=== PATIENT | female | born 1985 | race Caucasian/White ===

== ENCOUNTER → 2022-08-14 | Outpatient (CLI) | payer OTHER, SELFPAY ==
--- NOTE | 2022-08-14 08:25 | BI_ITS ---
MAMMOGRAPHY - BILATERAL SCREENING REASON FOR EXAM: Female, 36 years old. Routine annual screening examination. PERTINENT HISTORY: Mother with breast cancer. TECHNIQUE: Digital bilateral breast cristina (3D mammographic acquisition) in the CC and MLO projections. 2-D mediolateral oblique (MLO) and craniocaudad (CC) views of both breasts were obtained. CAD: Full Field Digital Mammography with Computer Added Detection was performed. COMPARISON: Comparison is made with prior examination January 07, 2017. FINDINGS: Breast Composition: The breasts are extremely dense, which lowers the sensitivity of mammography. There are no dominant masses or suspicious calcifications. No other significant abnormalities are identified. There has been no significant change since the prior study. BI/SCRN MAMM (CAD)W/CRISTINA BILAT IMPRESSION: Stable bilateral screening mammogram. Yearly follow-up mammogram recommended. (A) ASSESSMENT CATEGORY: BIRADS Category 1: Negative. A letter regarding these results will be sent to the patient by the facility within 30 days. Approximately 10% of breast cancers are not detected by mammography. A normal mammogram should not delay biopsy of a clinically suspicious abnormality. [id number] Electronically Signed: Guy Ruiz MD at 9:44 EDT ,
== END | disposition home or self-care (01) ==
LOC: OPBI 08:23
PROVIDERS: PCP Family Medicine; Referring Provider Family Medicine; Visit Provider Family Medicine
DX: Z12.31 Encounter for screening mammogram for malignant neoplasm of breast (principal); Z80.3 Family history of malignant neoplasm of breast
CPT/HCPCS: 77063; 77067

== ENCOUNTER → 2023-02-06 | Outpatient (CLI) | payer OTHER, SELFPAY ==
[2023-02-06 09:51] LABS: Absolute Lymphocyte Count 2.43 X10^3/uL (0.83-4.51); Absolute Neutrophil Count 3.6 X10^3/uL (2.0-7.7); Basophil# 0.04 X10^3/uL; Basophil% 0.6 % (0-1); Eosinophil# 0.07 X10^3/uL; Hematocrit 45.5 % (37-47); Hemoglobin 15.2 g/dL (12.0-15.0); Lymphocyte # 2.43 X10^3/ul (0.83-4.51); Lymphocyte % 36.4 % (19-41); Mean Corp Hgb Conc 33.4 g/dL (32-36); Mean Corpuscular Volume 92.9 fL (81-99); Mean Platelet Vol. 11.3 fl (6.2-12.0); Monocyte# 0.56 X10^3/uL; Monocyte% 8.4 % (0-10); NRBC Flagged by Analyzer 0 % (0-5); Neutrophil # 3.56 X10^3/uL (2.7-7.7); Neutrophil % 53.5 % (47-70); Platelet Count 244 K/mm3 (150-450); RBC Distribution Width CV 12.6 % (11.6-14.6); RBC Distribution Width SD 43.3 fl (35.1-43.9); White Blood Count 6.7 K/mm3 (4.4-11.0)
[2023-02-06 10:13] LABS: Hemoglobin A1c 5.1 % (3.8-5.6)
[2023-02-06 10:22] LABS: AST(SGOT) 18 U/L (15-37); Alanine Aminotransfer ALT/SGPT 23 U/L (13-56); Albumin, Serum 3.8 g/dL (3.2-5.0); Alkaline Phosphatase 66 U/L (45-117); Anion Gap 4 (5-15); BUN 11 mg/dL (7-18); Calcium,Total 8.8 mg/dL (8.5-10.1); Chloride 107 mmol/L (98-107); Cholesterol 202 mg/dL (200); Creatinine, Serum 0.92 mg/dL (0.55-1.02); EST Glomerular Filtration Rate 72 mL/min (>60); Est Glom Filt Rate - Afr Amer 88 mL/min (>60); Globulin 3.9 g/dL (2.2-4.2); Glucose 91 mg/dL (74-106); High Density Lipoprotein 71 mg/dL; Potassium 4.3 mmol/L (3.5-5.1); Protein, Total 7.7 g/dL (6.4-8.2); Sodium Level 138 mmol/L (136-145); Thyroid Stim Hormone (TSH) 1.45 uIU/mL (0.358-3.74); Triglycerides 85 mg/dL; Very Low Density Lipoprotein 17 mg/dL (5-40)
== END | disposition home or self-care (01) ==
LOC: LAB 09:25
PROVIDERS: PCP Family Medicine; Referring Provider Family Medicine; Visit Provider Family Medicine
DX: Z13.228 Encounter for screening for other metabolic disorders (principal); Z13.220 Encounter for screening for lipoid disorders; Z13.1 Encounter for screening for diabetes mellitus
CPT/HCPCS: 36415; 80053; 80061; 83036; 84443; 85025

== ENCOUNTER → 2023-08-19 | Outpatient (CLI) | payer BC, SELFPAY ==
--- NOTE | 2023-08-19 16:21 | BI_ITS ---
MAMMOGRAPHY - BILATERAL SCREENING REASON FOR EXAM: Female, 37 years old. Routine annual screening examination. PERTINENT HISTORY: Mother with breast cancer. TECHNIQUE: Digital bilateral breast cristina (3D mammographic acquisition) in the CC and MLO projections. 2-D mediolateral oblique (MLO) and craniocaudad (CC) views of both breasts were obtained. CAD: Full Field Digital Mammography with Computer Added Detection was performed. COMPARISON: Comparison is made with prior study August 14, 2022. FINDINGS: Breast Composition: The breasts are extremely dense, which lowers the sensitivity of mammography. There are no dominant masses or suspicious calcifications. No other significant abnormalities are identified. There has been no significant change since the prior study. BI/SCRN MAMM (CAD)W/CRISTINA BILAT IMPRESSION: Stable bilateral screening mammogram. Yearly follow-up mammogram recommended. (A) ASSESSMENT CATEGORY: BIRADS Category 1: Negative. A letter regarding these results will be sent to the patient by the facility within 30 days. Approximately 10% of breast cancers are not detected by mammography. A normal mammogram should not delay biopsy of a clinically suspicious abnormality. [id number] Electronically Signed: Guy Ruiz MD at 9:27 EDT ,
== END | disposition home or self-care (01) ==
LOC: OPBI 16:21
PROVIDERS: PCP Family Medicine; Referring Provider Advanced Practice Midwife; Visit Provider Advanced Practice Midwife
DX: Z12.31 Encounter for screening mammogram for malignant neoplasm of breast (principal); Z80.3 Family history of malignant neoplasm of breast
CPT/HCPCS: 77063; 77067

== ENCOUNTER → 2023-11-16 | Outpatient (CLI) | payer BC, SELFPAY ==
[2023-11-21 13:06] LABS: Banana <0.10 kU/L (Class 0); Clam <0.10 kU/L (Class 0); Codfish <0.10 kU/L (Class 0); Corn <0.10 kU/L (Class 0); Crab <0.10 kU/L (Class 0); Egg, White <0.10 kU/L (Class 0); Egg, Whole <0.10 kU/L (Class 0); Gluten <0.10 kU/L (Class 0); Milk (Cow) <0.10 kU/L (Class 0); Peanut <0.10 kU/L (Class 0); SCALLOP <0.10 kU/L (Class 0); SESAME SEED <0.10 kU/L (Class 0); Shrimp <0.10 kU/L (Class 0); Soybean <0.10 kU/L (Class 0); Walnut, (Food) <0.10 kU/L (Class 0); Wheat <0.10 kU/L (Class 0)
== END | disposition home or self-care (01) ==
PROVIDERS: PCP Family Medicine; Referring Provider Otolaryngology; Visit Provider Otolaryngology
DX: T78.40XA Allergy, unspecified, initial encounter (principal)
CPT/HCPCS: 36415; 86003

== ENCOUNTER → 2024-05-29 | Outpatient (CLI) | payer BC, SELFPAY ==
--- NOTE | 2024-05-29 11:45 | RAD_ITS ---
EXAM: XR Chest, 2 Views CLINICAL INDICATION: TECHNIQUE: Frontal and lateral views of the chest. COMPARISON: No relevant prior studies available. FINDINGS: LUNGS AND PLEURAL SPACES: Unremarkable. No consolidation. No pneumothorax. HEART: Unremarkable. No cardiomegaly. MEDIASTINUM: Unremarkable. Normal mediastinal contour. BONES/JOINTS: Unremarkable. No acute fracture. RAD/Chest PA and Lateral IMPRESSION: No acute cardiopulmonary process. Reading [facility]
== END | disposition home or self-care (01) ==
LOC: RAD 11:42
PROVIDERS: PCP Family Medicine; Referring Provider Internal Medicine Pulmonary Disease; Visit Provider Internal Medicine Pulmonary Disease
DX: R06.00 Dyspnea, unspecified (principal); R05.9 Cough, unspecified
CPT/HCPCS: 71046

== ENCOUNTER → 2024-06-08 | Outpatient (CLI) | payer BC, SELFPAY ==
[2024-06-15 12:08] LABS: HPV APTIMA, High Risk Negative (Negative)
== END | disposition home or self-care (01) ==
PROVIDERS: PCP Family Medicine; Referring Provider Advanced Practice Midwife; Visit Provider Advanced Practice Midwife
DX: Z12.4 Encounter for screening for malignant neoplasm of cervix (principal)
CPT/HCPCS: 87624; 88175; G0145

== ENCOUNTER → 2024-06-20 | Outpatient (CLI) | payer BC, SELFPAY ==
[2024-06-20 17:06] LABS: D-Dimer Quantitative (DVT/PE) < 0.27 FEU/ug/m (0.27-0.49)
== END | disposition home or self-care (01) ==
PROVIDERS: PCP Family Medicine; Referring Provider Internal Medicine Pulmonary Disease; Visit Provider Internal Medicine Pulmonary Disease
DX: R06.02 Shortness of breath (principal)
CPT/HCPCS: 36415; 85379

== ENCOUNTER → 2024-06-21 | Outpatient (CLI) | payer BC, SELFPAY ==
[2024-06-21 17:52] LABS: CRP 4.48 mg/L (0.0-3.0)
[2024-06-23 10:08] LABS: Anti-Scleroderma-70 AB <0.2 AI (0.0-0.9); Anti-dsDNA Ab 2 IU/mL (0-9); SJOGREN'S Anti-SS-A test < 0.2 AI (0.0-0.9); SJOGREN'S Anti-SS-B test < 0.2 AI (0.0-0.9)
[2024-06-23 17:08] LABS: Angiotensin Convert Enzyme 42 U/L (14-82); Anti-Smooth Muscle ABS 17 Units (0-19); CCP IgG Antibodies 8 units (0-19); Cytoplasmic Ab (C-ANCA) <1:20 titer (Neg:<1:20); Perinuclear Ab (P-ANCA) <1:20 titer (Neg:<1:20)
== END | disposition home or self-care (01) ==
LOC: LAB 16:26
PROVIDERS: PCP Family Medicine; Referring Provider Internal Medicine Pulmonary Disease; Visit Provider Internal Medicine Pulmonary Disease
DX: R06.02 Shortness of breath (principal)
CPT/HCPCS: 82164; 83516; 86037; 86140; 86200; 86225; 86235

== ENCOUNTER → 2024-09-04 | Outpatient (CLI) | payer BC, SELFPAY ==
--- NOTE | 2024-09-04 12:30 | BI_ITS ---
EXAM: SCRN MAMM (CAD)W/CRISTINA BILAT DATE: 09/04/2024 CLINICAL HISTORY: F, Age 38 y/o , BREAST CANCER SCREENING BREAST CANCER RISK ASSESSMENT: Th has not been calculated TECHNIQUE: Bilateral screening digital breast tomosynthesis with 2D and 3D images. Computer aided detection. COMPARISON: Prior exam(s) dated 08/20/2023 and 08/14/2022. FINDINGS: TISSUE DENSITY: The breast tissue is extremely dense which lowers the sensitivity of mammography. Bilateral Breast Mammographic Findings: There are no suspicious masses, suspicious cluster of microcalcifications, architectural distortion or secondary signs of malignancy identified in either breast. BI/SCRN MAMM (CAD)W/CRISTINA BILAT IMPRESSION: OVERALL FINAL ASSESSMENT: BIRADS 1 NEGATIVE RECOMMENDATION: Routine annual follow-up in 1 Year A letter with findings and recommendations will be mailed to the patient. Reading Location: [id number]
== END | disposition home or self-care (01) ==
LOC: OPBI 12:24
PROVIDERS: PCP Family Medicine; Referring Provider Advanced Practice Midwife; Visit Provider Advanced Practice Midwife
DX: Z12.31 Encounter for screening mammogram for malignant neoplasm of breast (principal); Z80.3 Family history of malignant neoplasm of breast
CPT/HCPCS: 77063; 77067

== ENCOUNTER → 2024-11-25 | Outpatient (CLI) | payer BC, SELFPAY ==
--- OUTSIDE RECORDS SUMMARY | 2024-11-25 10:17 | XMS RPT_ITS | CCD ---
Author Organization [facility] Care Team Providers Care Industrial Cafeteria Manager Name Role Phone MECASIMIROE, LUIS Unavailable Unavailable MEHLE, LUIS Unavailable Unavailable ALOK, KARIN Unavailable Unavailable MEHLE, LUIS Unavailable Unavailable ALOK, KARIN Unavailable Unavailable MEHLE, LUIS Unavailable Unavailable ALOK, KARIN Unavailable Unavailable Alok, Karin Unavailable Unavailable Alok, Karin Unavailable Unavailable Alok, Karin Unavailable Unavailable Alok, Karin Unavailable Unavailable Unavailable Nuria Dickinson Primary Care Provider AlokNuria Primary Care Provider Tino Hood DO Primary Care Provider Tino Hood DO Primary Care Provider Tino Hood DO Primary Care Provider Tino Hood DO Primary Care Provider [phone] Maritza Hood DO Primary Care Provider Dr. Dg Nguyen MD, V Attending Provider Dr. Dg Nguyen MD, V Referring Provider Maritza Hood DO Referring Provider Isabelle Frias CNM Attending Provider Isabelle Frias CNM Referring Provider Maritza Hood DO Primary Care Provider Dr. Dg Nguyen MD, V Attending Provider Dr. Dg Nguyen MD, V Referring Provider Sana DO, Maritza Referring Provider Isabelle Frias CNM Attending Provider Isabelle Frias CNM Referring Provider Isabelle Frias Attending Unavailable Isabelle Frias Referring Unavailable Sana [facility], Maritza Primary Care Unavailable Sana [facility]SC, Maritza Primary Care Unavailable Sibilia, Dg V Attending Unavailable Sibilia, Dg V Referring Unavailable Sana VSC, Maritza Primary Care Unavailable Sibilia, Dg V Attending Unavailable Sibilia, Dg V Referring Unavailable Isabelle Frias Attending Unavailable Isabelle Frias Referring Unavailable Sana VS, Maritza Primary Care Unavailable Isabelle Frias Attending Unavailable Sana VS, Maritza Primary Care Unavailable Sana VS, Maritza Referring Unavailable Sana VS, Maritza Primary Care Unavailable Sibilia, Dg V Attending Unavailable Sibilia, Dg V Referring Unavailable Can Enrique Referring Unavailable Sana [facility], Maritza Primary Care Unavailable Can Enrique [facility]ending [facility] Primary Care Provider ANNIE PERAZA Attending Unavailable TINO HOOD SALLY Primary Care Unavailabl e Allergies Allergy Classification Reported Allergen(s) Allergy Type Date of Onset Reaction(s) Facility (14 sources) cefdinir; Translations: [CEFDINIR] Drug Allergy 8 Diarrhea [facility] (1 source) cefdinir Drug Allergy 5 [facility] Repository (2 sources) Mold Extract; Translations: [MOLD] Drug Allergy 5 Cough, Itching [facility] (2 sources) Seasonal allergy; Translations: [SEASONAL ALLERGIES] Propensity to adverse reactions 5 Cough, Itching [facility] Medications Current Medications Medication Drug Class(es) Dates Sig (Normalized) Sig (Original) [id number] 200 actuat albuterol 0.09 mg/actuat metered dose inhaler (8 sources) beta2-Adrenergic Agonist Start: 10-23-2024 albuterol HFA (PROVENTIL HFA, VENTOLIN HFA) 90 mcg/actuation inhaler 10/23/2024 Active Start: 03-31-2018 take 2 puff(s) by in halation every four to six hours as needed Ventolin HFA 108 (90 Base) MCG/ACT Inhalation Aerosol Solution INHALE 2 PUFFS EVERY 4 TO 6 HOURS NEEDED Quantity: 1 Refills: 0 Ordered: 31-Mar-2018 Nuria Dickinson MD Start : 31-Mar-2018 Active Start: 03-31-2018 take 2 puff(s) by in halation every four to six hours as needed Ventolin HFA 108 (90 Base) MCG/ACT Inhalation Aerosol Solution INHALE 2 PUFFS EVERY 4 TO 6 HOURS NEEDED Quantity: 1 Refills: 0 Nuria Dickinson MD Start : 31-Mar-2018 Active 18 GM Inhaler Beclomethasone Dipropionate (6 sources) Corticosteroid Start: 06-08-2024 take 40 ug by inhalation twice daily Beclomethasone Dipropionate (Qvar Redihaler) 40 mcg/actuation HFA aerosol breath activated Active 1 NMA INHALATION TWICE A DAY June 08, 2024 1:00am Start: 06-08-2024 take 40 ug by inhala tion twice daily Beclomethasone Dipropionate (Qvar Redihaler) 40 mcg/actuation HFA aerosol breath activated Active 1 NMA INHALATION TWICE A DAY June 08, 2024 12:00am Start: 05-29-2024 QVAR REDIHALER 80 mcg/actuation inhaler 05/29/2024 Active benoxinate hydrochloride 4 mg/ml / fluorescein sodium 3 mg/ml ophthalmic solution (4 sources) Diagnostic Dye Start: 10-24-2024 End: 10-25-2024 fluorescein-benoxinate 0.3-0.4 % 1 drop (FLURESS) Start: 10-24-2024 End: 10-25-2024 1 drop, BOTH EYES, DIRECT ED, Starting on Wed10/24/24 at 1330, Until Wed10/25/24 at 0129, Administer for applanation tonometry. In the event of a Fluress shortage, administer Billings-Fluor 1 drop into both eyes as directed for applanation tonometry Start: 10-19-2023 End: 10-20-2023 fluorescein-benoxinate 0.3-0 .4 % 1 Drop (FLURESS) 60 actuat budesonide 0.16 mg/actuat / formoterol fumarate 0.0045 mg/actuat metered dose inhaler (15 sources) Corticosteroid, beta2-Adrenergic Agonist Start: 05-28-2018 take 2 puff(s) by mouth twice daily SYMBICORT 160-4.5 mcg/actuation inhaler Take 2 Puffs by mouth twice daily. 05/28/2018 Active Start: 12-21-2017 take 2 puff(s) by in halation twice daily Symbicort 160-4.5 MCG/ACT Inhalation Aerosol inhale 2 puffs into lungs twice daily Quantity: 10 Refills: 0 Ordered: 17-Feb-2018 DO Start : 21-Dec-2017 Active Comment on above: Take 2 Puffs by mout h twice daily. 12 hr buPROPion hydrochloride 200 mg extended release oral tablet (12 sources) Aminoketone Start: take 1 tablet by mouth once daily Bupropion Hcl (Wellbutrin Sr) 200 mg tablet sustained-release 12 hr Active 200 mg PO DAILY May 28, 2023 1:00am Start: 12-16-2021 take 1 tablet by judi th once daily buPROPion SR (ZYBAN SR; WELLBUTRIN SR) 150 mg 12 hr tablet Take 150 mg by mouth once daily. 12/16/2021 Active Comment on above: Take 150 mg by mouth once daily. ipratropium bromide 0.042 mg/actuat metered dose nasal spray (1 source) Anticholinergic Start: take 2 spray(s) nasal route twice daily ipratropium bromide (ATROVENT) 42 mcg (0.06 %) nasal spray instill 2 sprays into each nostril twice a day 08/31/2024 Active ketoconazole 20 mg/ml medicated shampoo (2 sources) Azole Antifungal Start: ketoconazole (NIZORAL) 2 % shampoo 07/27/2023 Active levocetirizine dihydrochloride 5 mg oral tablet (1 source) Histamine-1 Receptor Antagonist Start: levocetirizine (XYZAL) 5 mg tablet 08/20/2023 Active omeprazole 40 mg delayed release oral capsule (5 sources) Proton Pump Inhibitor Start: take 1 mg by mouth once daily Omeprazole 40 mg capsule,delayed release(DR/EC) Active mg PO DAILY June 08, 2024 1:00am phenylephrine hydrochloride 25 mg/ml ophthalmic solution (1 source) alpha-1 Adrenergic Agonist Start: End: PHENYLephrine 2.5 % 1 Drop (AK-DILATE, TROY-SYNEPHRINE) proparacaine hydrochloride 5 mg/ml ophthalmic solution (2 sources) Local Anesthetic Start: End: proparacaine 0.5 % 1 Drop (ALCAINE) Start: 01-21-2022 End: 01-22-2022 proparacaine 0.5 % 1 Drop (A LCAINE) Triamcinolone (2 sources) Corticosteroid Start: 09-20-2023 triamcinolone acetonide (NASACORT ALLERGY NASAL) 09/20/2023 Active Start: 05-14-2023 End: 05-28-2023 triamcinolone acetonide (OLGA ALOG) 0.1 % cream Apply to affected area two times a day for 14 days. 15 g 0 05/14/2023 05/28/2023 Active Comment on above: Apply to affected ar ea two times a day for 14 days. tropicamide 10 mg/ml ophthalmic solution (4 sources) Anticholinergic Start: 10-24-2024 End: 10-25-2024 tropicamide 1 % 1 drop (MYDRIACYL) Start: 10-24-2024 End: 10-25-2024 1 drop, BOTH EYES, DIRECT ED, Starting on Wed10/24/24 at 1330, Until Wed10/25/24 at 0129, Administer for dilation Start: 10-19-2023 End: 10-20-2023 tropicamide 1 % 1 Drop (MYDR IACYL) valACYclovir 1000 mg oral tablet (1 source) Herpesvirus Nucleoside Analog DNA Polymerase Inhibitor, Herpes Simplex Virus Nucleoside Analog DNA Polymerase Inhibitor, Herpes Zoster Virus Nucleoside Analog DNA Polymerase Inhibitor Start: 05-14-2023 End: 05-21-2023 take 1 tablet by mouth three times daily valACYclovir (VALTREX) 1 gram tablet Take 1 tablet by mouth three times a day for 7 days. 21 tablet 0 05/14/2023 05/21/2023 Active Comment on above: Take 1 tablet by judi three times a day for 7 days. Completed/Discontinued Medications Medication Drug Class(es) Dates Sig (Normalized) Sig (Original) amitriptyline hydrochloride 10 mg oral tablet (10 sources) Tricyclic Antidepressant Start: 01-05-2019 End: 01-07-2022 amitriptyline (ELAVIL) 10 mg tablet Indications: Chronic cough TAKE 3 TABLETS AT BEDTIME FOR COUGH 120 tablet 8 08/25/2021 01/07/2022 Discontinued (Discontinued by another Health Care Provider) Start: 01-05-2019 Amitriptyline HCl - 10 MG Oral Tablet Refills: 0 Start : 05-Jan-2019 Active Comment on above: TAKE 3 TABLETS AT BE DTIME FOR COUGH etonogestrel 68 mg drug implant (7 sources) Progestin Nexplanon 68 MG Subcutaneous Implant Quantity: 0 Refills: 0 Ordered: 17-Oct-2015 DO Active Fish Oil OIL (4 sources) Fish Oil OIL Ref ills: 0 DO Active Fish Oil OIL Ref ills: 0 Active Fish Oil OIL (3 sources) Fish Oil OIL Sandeep ntity: 0 Refills: 0 Ordered: 21-Oct-2016 DO Active Problems Active Problems Problem Classification Problem Date Documented Date Episodic/Chronic Acute bronchitis (7 sources) Acute bronchitis; Translations: [Acute bronchitis] Episodic Anxiety disorders (6 sources) Anxiety disorder; Translations: [Anxiety disorder, unspecified] Chronic Asthma (20 sources) Cough variant asthma; Translations: [Cough variant asthma] Onset: 11-29-2019 11-29-2019 Chronic Attention-deficit, conduct, and disruptive behavior disorders (5 sources) Attention deficit hyperactivity disorder; Translations: [Attention-deficit hyperactivity disorder, unspecified type] 05-28-2023 Chronic Esophageal disorders (7 sources) Gastroesophageal reflux disease; Translations: [Esophageal reflux] Chronic Genitourinary symptoms and ill-defined conditions (14 sources) Dysuria; Translations: [Increased frequency of urination] Episodic Inflammation; infection of eye (except that caused by tuberculosis or sexually transmitteddisease) (11 sources) Bilateral punctate keratitis of eyes; Translations: [Punctate keratitis, bilateral] Onset: 06-03-2017 06-03-2017 Chronic Intestinal infection (7 sources) Traveler's diarrhea; Translations: [Infectious diarrhea] Episodic Malaise and fatigue (5 sources) Fatigue; Translations: [Other malaise and fatigue] Episodic Menstrual disorders (7 sources) Amenorrhea; Translations: [Absence of menstruation] Chronic Mood disorders (5 sources) Depressive disorder; Translations: [Depression] 05-28-2023 Chronic Other eye disorders (8 sources) Bilateral vitreous floaters; Translations: [Other vitreous opacities, bilateral] Onset: 06-03-2017 10-21-2017 Chronic Other eye disorders (3 sources) Tear film insufficiency; Translations: [Dry eye syndrome of bilateral lacrimal glands] Episodic Other eye disorders (11 sources) Meibomian gland dysfunction of bilateral eyes; Translations: [Meibomian gland dysfunction right eye, upper and lower eyelids] Onset: 01-21-2022 Episodic Other eye disorders (1 source) Dry eye syndrome of bilateral lacrimal glands; Translations: [Dry eye syndrome of both eyes] Onset: 10-24-2024 Episodic Other lower respiratory disease (7 sources) Cough; Translations: [Cough] Episodic Other lower respiratory disease (1 source) Shortness of breath; Translations: [Shortness of breath] Onset: 06-30-2024 Episodic Other nutritional; endocrine; and metabolic disorders (5 sources) Weight gain; Translations: [Abnormal weight gain] Episodic Other screening for suspected conditions (not mental disorders or infectious disease) (9 sources) Patient encounter status; Translations: [Other screening mammogram] Onset: 06-08-2024 Episodic Other upper respiratory infections (3 sources) Sinusitis; Translations: [Unspecified sinusitis (chronic)] Chronic Other upper respiratory infections (18 sources) Acute pharyngitis; Translations: [Acute sinusitis] Episodic Residual codes; unclassified (7 sources) Needs influenza immunization; Translations: [Need for prophylactic vaccination and inoculation against influenza] Episodic Residual codes; unclassified (5 sources) Family history of breast cancer; Translations: [Family history of malignant neoplasm of breast] 05-28-2023 Episodic Comment on above: mother at age 48 Urinary tract infections (7 sources) Acute urinary tract infection; Translations: [Urinary tract infection, site not specified] Episodic Viral infection (1 source) Herpes zoster without complication; Translations: [Zoster without complications] 05-14-2023 Episodic Past or Other Problems Problem Classification Problem Date Documented Date Episodic/Chronic Allergic reactions (1 source) Allergy, unspecified, initial encounter; Translations: [Allergy, unspecified, initial encounter] Onset: 01-05-2024 Episodic Blindness and vision defects (10 sources) Myopia; Translations: [Myopia, unspecified eye] Onset: 04-28-2016 Resolved: 05-21-2016 05-21-2016 Episodic Inflammation; infection of eye (except that caused by tuberculosis or sexually transmitteddisease) (4 sources) Internal hordeolum of left upper eyelid; Translations: [Hordeolum internum left upper eyelid] Onset: 10-21-2017 Resolved: 01-21-2022 10-21-2017 Episodic Other eye disorders (1 source) Meibomian gland dysfunction right eye, upper and lower eyelids; Translations: [Meibomian gland dysfunction (MGD) of upper and lower lids of both eyes] Onset: 01-21-2022 Episodic Other eye disorders (1 source) Meibomian gland dysfunction left eye, upper and lower eyelids; Translations: [Meibomian gland dysfunction (MGD) of upper and lower lids of both eyes] Onset: 01-21-2022 Episodic Other lower respiratory disease (9 sources) Chronic cough; Translations: [Chronic cough] Onset: 11-04-2018 Episodic Other lower respiratory disease (1 source) Dyspnea, unspecified; Translations: [Dyspnea, unspecified] Onset: 06-08-2024 Episodic Residual codes; unclassified (1 source) Family history of malignant neoplasm of breast; Translations: [Family history of malignant neoplasm of breast] Onset: 06-08-2024 Episodic Residual codes; unclassified (1 source) Other specified postprocedural states; Translations: [Status post LASIK surgery of both eyes] Onset: 05-22-2016 Episodic Unclassified (12 sources) Patient encounter status; Translations: [Screening cholesterol level] NEGATED: Highlighted row has not occurred!Residual codes; unclassified (20 sources) Disease Episodic Results Test Name Value Interpretation Reference Range Facility Breast imaging reportOrdered By: Beverly Lopez on 09-04-2024 Study report [facility] Imaging Services [address] [place], [place] [id number] SCRN MAMM (CAD)W/CRISTINA [place] MR#: [id number] Acct: [id number] Name: OLIVIA LEA Rep #: [id number] : 1985 F 38 From: Matthew Lopez DO PCP: Maritza Hood DO Status: REG CLI Study:SCRN MAMM (CAD)W/CRISTINA BILAT Date of Exa m: 09/04/24 Exam# [id number] Ordering Dr: Isabelle Frias CNM EXAM: SCRN MAMM (CAD)W/CRISTINA BILAT DATE: 09/04/2024 CLINICAL HISTORY: F, Age 38 y/o , BREAST CANCER SCREENING BREAST CANCER RISK ASSESSMENT: Th has not been calculated TECHNIQUE: Bilateral screening digital breast tomosynthesis with 2D and 3D images. Computeraided detection. COMPARISON: Prior exam(s) dated 08/20/2023 and 08/14/2022. FINDINGS: TISSUE DENSITY: The breast tissue is extremely dense which lowers the sensitivity of mammography. Bilateral Breast Mammographic Findings: There are no suspicious masses, suspicious cluster of microcalcifications, architectural distortion or secondary signs of malignancy identified in either breast. BI/SCRN MAMM (CAD)W/CRISTINA BILAT IMPRESSION: OVERALL FINAL ASSESSMENT: BIRADS 1 NEGATIVE RECOMMENDATION: Routine annual follow-up in 1 Year A letter with findings and recommendations will be mailed to the patient. Reading Location: [id number] CC: BARRY Frias; Maritza Hood DO ~ Acute Care Nursing Assistant: Signed [facility] SCRN MAMM (CAD)W/CRISTINA BILATo n 09-04-2024 SCRN MAMM (CAD)W/CRISTINA BILAT [facility] Imaging Services [address] [place] [id number] SCRN MAMM (CAD)W/CRISTINA BILAT MR#: [id number] Acct: [id number] Name: OLIVIA LEA Rep #: [id number] : 1985 F 38 From: Beverly Beltran PCP: Maritza Hood DO Status: REG CLI Study: SCRN MAMM (CAD)W/CRISTINA BILAT Date of Exam: 05/30 Exam# [id number] Ordering Dr: Isabelle Frias CNM EXAM: SCRN MAMM (CAD)W/CRISTINA BILAT DATE: 09/04/2024 CLINICAL HISTORY: F, Age 38 y/o , BREAST CANCER SCREENING BREAST CANCER RISK ASSESSMENT: Th has not been calculated TECHNIQUE: Bilateral screening digital breast tomosynthesis with 2D and 3D images. Computer aided detection. COMPARISON: Prior exam(s) dated 08/20/2023 and 08/14/2022. FINDINGS: TISSUE DENSITY: The breast tissue is extremely dense which lowers the sensitivity of mammography. Bilateral Breast Mammographic Findings: There are no suspicious masses, suspicious cluster of microcalcifications, architectural distortion or secondary signs of malignancy identified in either breast. BI/SCRN MAMM (CAD)W/CRISTINA BILAT IMPRESSION: OVERALL FINAL ASSESSMENT: BIRADS 1 NEGATIVE RECOMMENDATION: Routine annual follow-up in 1 Year A letter with findings and recommendations will be mailed to the patient. Reading Location: [id number] CC: BARRY Frias; Maritza Hood DO Acute Care Nursing Assistant: Signed Normal [facility] Misc.on 07-20-2024 [facility]. COMMENT Normal . [facility] Comment on above: Order Comment: [id number] 9ANTI V3 RED POUR RF Result Comment: Test Ordered: [id number] Anti-U3 OCCUPATIONAL THERAPY TECHNICIAN (Fibrillarin)(RDL) Test(s) 605764-[id number]-I0 OCCUPATIONAL THERAPY TECHNICIAN (Fibrillarin)(RDL) was developed and its performance characteristics determined by [facility]. It has not been cleared or approved by the Food and Drug Administration. Anti-U3 OCCUPATIONAL THERAPY TECHNICIAN (Fibrillarin)(RDL) Negative [facility] Reference Range: Negative Performed at: [facility] [employer] [address] [place] [id number] Supervisor Pleating: Jacob Carroll MD, Phone: [phone] Performed at: [address] [id number] Supervisor Pleating: Marcellus Rivero PhD, Phone: [phone] Performed By: #### L 5530.0649, L5530.0089, L5500.0410, L801.1541, L5530.0499, L5530.0589, L801.1545 #### [facility] [address] [place], [address] Order Comment: [id number] 3ANTI SYN RNR RED RF Result Comment: Test Ordered: [id number] Anti-Synthetase Profile (RDL) Test(s) 878471-Qzjd-UY-8 Ab (RDL); 783215- Anti-PL-12 Ab (RDL); 953885-Fklg-DY Ab (RDL); 932953- Anti-OJ Ab (RDL) was developed and its performance characteristics determined by [facility]. It has not been cleared or approved by the Food and Drug Administration. Anti-Kaela-1 Ab (RDL) <20 Units [facility] Reference Range: <20 Anti-PL-7 Ab (RDL) Negative [facility] Reference Range: Negative Anti-PL-12 Ab (RDL) Negative [facility] Reference Range: Negative Anti-EJ Ab (RDL) Negative [facility] Reference Range: Negative Anti-OJ Ab (RDL) Negative [facility] Reference Range: Negative Interpretation for Anti-Kaela-1: Negative: <20 Weak Positive: 20 - 39 Moderate Positive: 40 - 80 Strong Positive: >80 Given overlapping phenotypes, autoantibody positivity should be interpreted in the context of clinical and other laboratory findings. Performed at: [facility] [address] [place] [id number] Supervisor Pleating: Jacob Carroll MD, Phone: [phone] Performed at: [facility] [address] [id number] Supervisor Pleating: Marcellus Rivero PhD, Phone: [phone] [facility] 06-23-2024 Atypical pANCA <1:20 Normal Neg:<1:20 [facility] Comment on above: Result Comment: The atypical pANCA pattern has been observed in a significant percentage of patients with ulcerative colitis, primary sclerosing cholangitis and autoimmune hepatitis. Performed By: #### L 5530.0649, L5530.0089, L5500.0410, L801.1541, L5530.0499, L5530.0589, L801.1543 #### [facility] [address] [place], [address] Cytoplasmic Ab <1:20 Normal Neg:<1:20 [facility] Comment on above: Performed By: #### L 5530.0649, L5530.0089, L5500.0410, L801.1541, L5530.0499, L5530.0589, L801.1543 #### [facility] [address] [place], [address] Perinuclear Ab. <1:20 Normal Neg:<1:20 [facility] Comment on above: Result Comment: The presence of positive fluorescence exhibiting P-ANCA or C-ANCA patterns alone is not specific for the diagnosis of Kesha's Granulomatosis (WG) or microscopic polyangiitis. Decisions about treatment should not be based solely on ANCA IFA results. The International ANCA Group Consensus recommends follow up testing of positive sera with both RI- 3 and MPO-ANCA enzyme immunoassays. As many as 5% serum samples are positive only by EIA. Ref. AM J Clin Pathol 1999;111:507-513. Performed By: #### L 5530.0649, L5530.0089, L5500.0410, L801.1541, L5530.0499, L5530.0589, L801.1543 #### [facility] [address] [place], [address] Angiotensin Convert Enzymeon 06-23-2024 ANGIOT-CONV.ENZ 42 U/L Normal 14-82 [facility] Comment on above: Performed By: #### L 5530.0649, L5530.0089, L5500.0410, L801.1541, L5530.0499, L5530.0589, L801.1543 #### [facility] [address] [place], [address] Holi-Dzudsjnsilm-55 ABon ANTISCLERODERM <0.2 Normal 0.0-0.9 [facility] Comment on above: Performed By: #### L 5530.0649, L5530.0089, L5500.0410, L801.1541, L5530.0499, L5530.0589, L801.1543 #### [facility] [address] [place], [place], [id number] Anti-Smooth Muscle ABSon ANTISMOOTH MUSC 17 Units Normal 0-19 [facility] Comment on above: Result Comment: Nega tive 0 - 19 Weak positive 20 - 30 Moderate to strong positive >30 Actin Antibodies are found in 52-85% of patients with autoimmune hepatitis or chronic active hepatitis and in 22% of patients with primary biliary cirrhosis. Performed By: #### L 5530.0649, L5530.0089, L5500.0410, L801.1541, L5530.0499, L5530.0589, L801.1543 #### [facility] [address] [place], [place], [id number] Anti-dsDNA Abon 06-23-2024 ANTI-DNA (DS)AB 2 IU/mL Normal 0-9 [facility] Comment on above: Result Comment: Nega tive <5 Equivocal 5 - 9 Positive >9 Performed at: [address] [id number] Supervisor Pleating: Marcellus Rivero PhD, Phone: [phone] Performed By: #### L 5530.0649, L5530.0089, L5500.0410, L801.1541, L5530.0499, L5530.0589, L801.1543 #### [facility] [address] [place], [address] CCP IgG Antibodieson 025 CCP IgG Ab. 8 units Normal 0-19 [facility] Comment on above: Result Comment: Nega tive <20 Weak positive 20 - 39 Moderate positive 40 - 59 Strong positive >59 Performed at: [address] [id number] Supervisor Pleating: Marcellus Rivero PhD, Phone: [phone] Performed By: #### L 5530.0649, L5530.0089, L5500.0410, L801.1541, L5530.0499, L5530.0589, L801.1543 #### [facility] [address] [place], [address] Sjogren's Antibodies A/Bon 0 - ANTI-SS-A < 0.2 Normal 0.0-0.9 [facility] Comment on above: Result Comment: AMENDED REPORT 06/23/24 1008 Anti-SS-A previously reported as: Test not performed Performed By: #### L 5530.0649, L5530.0089, L5500.0410, L801.1541, L5530.0499, L5530.0589, L801.1543 #### [facility] [address] [place], [address] ANTI-SS-B < 0.2 Normal 0.0-0.9 [facility] Comment on above: Result Comment: AMENDED REPORT 06/23/24 1008 Anti-SS-B previously reported as: Test not performed Performed By: #### L 5530.0649, L5530.0089, L5500.0410, L801.1541, L5530.0499, L5530.0589, L801.1543 #### [facility] [address] [place], [place], [id number] Actin IgG QnOrdered By: Sathish Nguyen on 06-21-2024 Anti-Smooth Muscle Antibody 17 Units 0-19 [facility] Comment on above: Negative 0 - 19 Weak positive 20 - 30 Moderate to strong positive >30 Actin Antibodies are found in 52-85% of patients with autoimmune hepatitis or chronic active hepatitis and in 22% of patients with primary biliary cirrhosis. Atypical perinuclear antineu trophil cytoplasmic antibodies measurementOrdered By: Dg Nguyen on 06-21-2024 Atypical p-ANCA <1:20 titer Neg:<1:20 [facility] Comment on above: The atypical pANCA p attern has been observed in asignificant percentage of patients with ulcerative colitis,primary sclerosing cholangitis and autoimmune hepatitis. CRPon 06-21-2024 C-REACTIVE PROT 4.48 mg/L High 0.0-3.0 [facility] Comment on above: Performed By: #### L 5530.0649, L5530.0089, L5500.0410, L801.1541, L5530.0499, L5530.0589, L801.1543 #### [facility] [place], [address] CRP [Mass/Vol]Ordered By: Brenna Nguyen on 06-21-2024 C-Reactive Protein Extended Range 4.48 mg/L High 0.0-3.0 [facility] Cyclic citrullinated peptide IgG QnOrdered By: Dg Nguyen on 06-21-2024 Cyclic Citrullinated Peptide IgG Ab 8 units 0-19 [facility] Comment on above: Negative <20 Weak po sitive 20 - 39 Moderate positive 40 - 59 Strong positive >59Performed at: [facility] [place], [place] [id number] Director: Marcellus Rivero PhD, Phone: [phone] DNA double strand Ab Qn (S)O rdered By: Dg Nguyen on 06-21-2024 Anti-Double Strand DNA Antibody 2 IU/mL 0-9 [facility] Comment on above: Negative <5 Equivoca l 5 - 9 Positive >9Performed at: [facility] [address] [id number] Director: Marcellus Rivero PhD, Phone: [phone] Neutrophil cytoplasmic Ab.cl assic Qn (S)Ordered By: Dg Nguyen on 06-21-2024 Cytoplasmic ANCA (c-ANCA) Antibody <1:20 titer Neg:<1:20 [facility] Neutrophil cytoplasmic Ab.pe rinuclear IF (S) [Titer]Ordered By: Dg Nguyen on 06-21-2024 Perinuclear ANCA (p-ANCA) Antibody <1:20 titer Neg:<1:20 [facility] Comment on above: The presence of posi tive fluorescence exhibiting P-ANCA orC-ANCA patterns alone is not specific for the diagnosis ofWegener's Granulomatosis (WG) or microscopic polyangiitis.Decisions about treatment should not be based solely onANCA IFA results. The International ANCA Group Consensusrecommends follow up testing of positive sera with both RI-3 and MPO-ANCA enzyme immunoassays. As many as 5% serumsamples are positive only by EIA. Ref. AM J Clin Bokpiv2828;111:507-513. No Panel InformationOrdered By: Dg Nguyen on 06-21-2024 Miscellaneous Test COMMENT . [facility] Comment on above: Test Ordered: [id number] Anti-Synthetase Profile (RDL)Test(s) 041733-Nard-AU-7 Ab (RDL); 866825-Bjhd-GI-89 Ab (RDL); 336155-Cjjb-WK Ab (RDL); 953852-Phpo-KG Ab (RDL)was developed and its performance characteristicsdetermined by [employer]. It has not been cleared or approvedby the Food and Drug Administration.Anti-Kaela-1 Ab (RDL) <20 Units [facility] Reference Range: <20Anti-PL-7 Ab (RDL) Negative [facility] Reference Range: FrrifrcoWbrt-IK-12 Ab (RDL) Negative [facility] Reference Range: NegativeAnti-EJ Ab (RDL) Negative [facility] Reference Range: NegativeAnti-OJ Ab (RDL) Negative [facility] Reference Range: Negative Interpretation for Anti-Kaela-1: Negative: <20 Weak Positive: 20 - 39 Moderate Positive: 40 - 80 Strong Positive: >80 Given overlapping phenotypes, autoantibody positivity should be interpreted in the context of clinical and other laboratory findings.Performed at: [facility] [address] [id number] Director: Jacob Carroll MD, Phone: [phone] at: [facility] Lab[address] [id number] Director: Marcellus Rivero PhD, Phone: [phone] SCL-70 extractable nuclear A b Qn (S)Ordered By: Dg Nguyen on 06-21-2024 Scl-70 (Scleroderma) Antibody <0.2 AI 0.0-0.9 [facility] SS-A IgG antibody assayOrder ed By: Dg Nguyen on 06-21-2024 SS-A/Ro IgG Antibody < 0.2 AI 0.0-0.9 [facility] Comment on above: Previous reported re sult: TNP AIEdited by: PK on 06/23/24:1008 AMENDED REPORT 06/23/24 1008 Anti-SS-A previously reported as: Test not performed SS-B IgG antibody assayOrder ed By: Dg Nguyen on 06-21-2024 SS-B/La IgG Antibody < 0.2 AI 0.0-0.9 [facility] Comment on above: Previous reported re sult: TNP AIEdited by: PK on 06/23/24:1008 AMENDED REPORT 06/23/24 1008 Anti-SS-B previously reported as: Test not performed Serum DNA double strand anti body assay (units/volume)Ordered By: Dg Nguyen on 06-21-2024 DNA double strand Ab Qn (S) 2 [IU]/mL 0-9 [facility] Comment on above: Negative <5 Equivoca l 5 - 9 Positive >9Performed at: [facility] [place] [id number] Director: Marcellus Rivero PhD, Phone: [phone] Serum Scl-70 antibody assay (units/volume)Ordered By: Dg Nguyen on 06-21-2024 SCL-70 extractable nuclear Ab Qn (S) <0.2 AI 0.0-0.9 [facility] Serum classic neutrophil cyt oplasmic antibody assay (units/volume)Ordered By: Dg Nguyen on 06-21-2024 Neutrophil cytoplasmic Ab.classic Qn (S) <1:20 titer Neg:<1:20 [facility] Serum or plasma C reactive p rotein measurement (mass/volume)Ordered By: Dg Nguyen on 06-21-2024 CRP [Mass/Vol] 4.48 mg/L High 0.0-3.0 [facility] Serum or plasma actin IgG an tibody assay (units/volume)Ordered By: Dg Nguyen on 06-21-2024 Actin IgG Qn 17 Units 0-19 [facility] Comment on above: Negative 0 - 19 Weak positive 20 - 30 Moderate to strong positive >30 Actin Antibodies are found in 52-85% of patients with autoimmune hepatitis or chronic active hepatitis and in 22% of patients with primary biliary cirrhosis. Serum or plasma angiotensin converting enzyme measurement (enzymatic activity/volume)Ordered By: Dg Nguyen on 06-21-2024 Angiotensin converting enzyme [Catalytic activity/Vol] 42 U/L 14-82 [facility] Serum or plasma cyclic citru llinated peptide IgG antibody assay (units/volume)Ordered By: Dg Nguyen on 06-21-2024 Cyclic citrullinated peptide IgG Qn 8 units 0-19 [facility] Comment on above: Negative <20 Weak po sitive 20 - 39 Moderate positive 40 - 59 Strong positive >59Performed at: [facility] [id number] Director: Marcellus Rivero PhD, Phone: [phone] Serum perinuclear neutrophil cytoplasmic antibody titer by immunofluorescenceOrdered By: Dg Nguyen on 06-21-2024 Neutrophil cytoplasmic Ab.perinuclear IF (S) [Titer] <1:20 titer Neg:<1:20 [facility] Comment on above: The presence of posi tive fluorescence exhibiting P-ANCA orC-ANCA patterns alone is not specific for the diagnosis ofWegener's Granulomatosis (WG) or microscopic polyangiitis.Decisions about treatment should not be based solely onANCA IFA results. The International ANCA Group Consensusrecommends follow up testing of positive sera with both RI-3 and MPO-ANCA enzyme immunoassays. As many as 5% serumsamples are positive only by EIA. Ref. AM J Clin Jrcxfn3352;111:507-513. D-Dimer Quantitative (DVT/PE )on 06-20-2024 D-DIMER QUANT < 0.27 Low 0.27-0.49 [facility] Comment on above: Result Comment: NORM AL D-Dimer level (<0.50) indicates no DVT or PE. Performed By: #### L 300.1039 #### [facility] [address] [place], [address] D-dimer measurement for deep venous thrombosisOrdered By: Dg Nguyen on 06-20-2024 D-Dimer Quantitative (PE/DVT) < 0.27 FEU/ug/m Low 0.27-0.49 [facility] Comment on above: NORMAL D-Dimer level (<0.50) indicates no DVT or PE. PAP IG HPV APTIMA 16/18,45on 06-15-2024 ADEQ Comment Normal . [facility] Comment on above: Order Comment: Speci men Comment: [id number] Comment: Source.............Cervix;EndocervixSpecimen Comment: No. of containers..01 ThinPrep Vial Result Comment: Sati sfactory for evaluation. No endocervical component is identified. Performed By: #### L 5530.0649, L5530.0089, L5500.0410, L801.1541, L5530.0499, L5530.0589, L801.1543 #### [facility] [address] [place], [place], [address] COMM . Normal . [facility] Comment on above: Order Comment: Speci men Comment: [id number] Comment: Source.............Cervix;EndocervixSpecimen Comment: No. of containers..01 ThinPrep Vial Performed By: #### L 5530.0649, L5530.0089, L5500.0410, L801.1541, L5530.0499, L5530.0589, L801.1543 #### [facility] [address] [place], [place], [address] COMMENT Comment Normal . [facility] Comment on above: Order Comment: Speci men Comment: [id number] Comment: Source.............Cervix;EndocervixSpecimen Comment: No. of containers..01 ThinPrep Vial Result Comment: This liquid based ThinPrep(R) pap test was screened with the use of an image guided system. Performed By: #### L 5530.0649, L5530.0089, L5500.0410, L801.1541, L5530.0499, L5530.0589, L801.1543 #### [facility] [address] [place], [place], [address] DIAG Comment Normal . [facility] Comment on above: Order Comment: Speci men Comment: [id number] Comment: Source.............Cervix;EndocervixSpecimen Comment: No. of containers..01 ThinPrep Vial Result Comment: NEGA TIVE FOR INTRAEPITHELIAL LESION OR MALIGNANCY. THIS SPECIMEN WAS RESCREENED PART OF OUR TRAIN MASTER PROGRAM. Performed By: #### L 5530.0649, L5530.0089, L5500.0410, L801.1541, L5530.0499, L5530.0589, L801.1543 #### [facility] [address] [place], [place], [address] HPV APTIMA, HR Negative Normal Negative [facility] Comment on above: Order Comment: Speci men Comment: [id number] Comment: Source.............Cervix;EndocervixSpecimen Comment: No. of containers..01 ThinPrep Vial Result Comment: This nucleic acid amplification test detects fourteen high- risk HPV types (16,18,31,33,35,39,45,51,52,56,58,59,66,68) without differentiation. Performed By: #### L 5530.0649, L5530.0089, L5500.0410, L801.1541, L5530.0499, L5530.0589, L801.1543 #### [facility] [address] [place], [address] HPV Casandra Rfx Comment Normal . [facility] Comment on above: Order Comment: Speci men Comment: [id number] Comment: Source.............Cervix;EndocervixSpecimen Comment: No. of containers..01 ThinPrep Vial Result Comment: Crit eria not met, HPV Genotype not performed. Performed at: - [address] [id number] Supervisor Pleating: Christina Hernandez MD, Phone: [phone] Performed at: = - [facility] [id number] Supervisor Pleating: Christina Hernandez MD, Phone: [phone] Performed By: #### L 5530.0649, L5530.0089, L5500.0410, L801.1541, L5530.0499, L5530.0589, L801.1543 #### [facility] [address] [place], [address] PAPSMR Comment Normal . [facility] Comment on above: Order Comment: Speci men Comment: [id number] Comment: Source.............Cervix;EndocervixSpecimen Comment: No. of containers..01 ThinPrep Vial Result Comment: The Pap smear is a screening test designed to aid in the detection of premalignant and malignant conditions of the uterine cervix. It is not a diagnostic procedure and should not be used as the sole means of detecting cervical cancer. Both false-positive and false-negative reports do occur. Performed By: #### L 5530.0649, L5530.0089, L5500.0410, L801.1541, L5530.0499, L5530.0589, L801.1543 #### [facility] [address] [place], [address] PERFORM Comment Normal . [facility] Comment on above: Order Comment: Speci men Comment: [id number] Comment: Source.............Cervix;EndocervixSpecimen Comment: No. of containers..01 ThinPrep Vial Result Comment: Jessica Ku Artificial Candy Maker (ASCP) Performed By: #### L 5530.0649, L5530.0089, L5500.0410, L801.1541, L5530.0499, L5530.0589, L801.1543 #### [facility] [address] [place], [place], [address] QC REV Comment Normal . [facility] Comment on above: Order Comment: Speci men Comment: [id number] Comment: Source.............Cervix;EndocervixSpecimen Comment: No. of containers..01 ThinPrep Vial Result Comment: Valente Calixto, Supervisory Artificial Candy Maker (ASCP) Performed By: #### L 5530.0649, L5530.0089, L5500.0410, L801.1541, L5530.0499, L5530.0589, L801.1543 #### [facility] [address] [place], [place], [address] Cervical or vaginal specimen microscopic examination by liquid based cytology (reportOrdered By: Isabelle Frias on 06-08-2024 Cytology report Cyto stain.thin prep Doc (Cvx/Vag) Comment . [facility] Comment on above: Criteria not met, HP V Genotype not performed.Performed at: - [address] [id number] Director: Christina Hernandez MD, Phone: [phone] at: = - [facility] [address] [id number] Director: Christina Hernandez MD, Phone: [phone] Cervical or vagninal specime n microscopic examination by cytology stain (reported asOrdered By: Isabelle Frias on 06-08-2024 Cytology report Cyto stain Doc (Cvx/Vag) Comment . [facility] Comment on above: The Pap smear is a s creening test designed to aid in thedetection of premalignant and malignant conditions of theuterine cervix. It is not a diagnostic procedure andshould not be used as the sole means of detecting cervicalcancer. Both false-positive and false-negative reports dooccur. Extrusion Press Adjuster Cyto stain Nom (C vx/Vag) [ID]Ordered By: Isabelle Frias on 06-08-2024 Pap Smear Performed By Comment . [facility] Comment on above: Alayna Ku, Cyto technologist (ASCP) Cytology report Cyto stain D oc (Cvx/Vag)Ordered By: Isabelle Frias on 06-08-2024 Thin Prep Pap Smear Comment . [facility] Comment on above: The Pap smear is a s creening test designed to aid in thedetection of premalignant and malignant conditions of theuterine cervix. It is not a diagnostic procedure andshould not be used as the sole means of detecting cervicalcancer. Both false-positive and false-negative reports dooccur. Cytology report Cyto stain.t hin prep Doc (Cvx/Vag)Ordered By: Isabelle Frias on 06-08-2024 HPV Genotype Special Info Comment . [facility] Comment on above: Criteria not met, HP V Genotype not performed.Performed at: - [facility] [address] [id number] Director: Christina Hernandez MD, Phone: [phone] at: = - [facility] [address] [id number] Director: Christina Hernandez MD, Phone: [phone] Detection in cervical specim en of any of human papilloma virus (HPV) 16, 18, 31, 33,Ordered By: Isabelle Frias on 06-08-2024 HPV 16+18+31+33+35+39+45+51+52+ 56+58+59+66+68 DNA Probe+sig amp Ql (Cvx) Negative Negative [facility] Comment on above: This nucleic acid am plification test detects fourteen high-risk HPV types (16,18,31,33,35,39,45,51,52,56,58,59,66,68)without differentiation. HPV 16+18+31+33+35+39+45+51+ 52+56+58+59+66+68 DNA Probe+sig amp Ql (Cvx)Ordered By: Isabelle Frias on 06-08-2024 Human Papillomavirus High Risk Negative Negative [facility] Comment on above: This nucleic acid am plification test detects fourteen high-risk HPV types (16,18,31,33,35,39,45,51,52,56,58,59,66,68)without differentiation. Image-guided ThinPrep PapOrd ered By: Isabelle Frias on 06-08-2024 Pap Smear Note Comment . [facility] Comment on above: This liquid based Th inPrep(R) pap test was screened withthe use of an image guided system. Image-guided liquid-based Pa pOrdered By: Isabelle Frias on 06-08-2024 Pap Smear Diagnosis Comment . [facility] Comment on above: NEGATIVE FOR INTRAEP ITHELIAL LESION OR MALIGNANCY.THIS SPECIMEN WAS RESCREENED PART OF OUR TRAIN MASTER PROGRAM. Laboratory - CytologyOrdered By: Isabelle Frias on 06-08-2024 Extrusion Press Adjuster Cyto stain Nom (Cvx/Vag) [ID] Comment . [facility] Comment on above: Alayna Ku, Cyto technologist (ASCP) Laboratory - Miscellaneous t estsOrdered By: Isabelle Frias on 06-08-2024 Service comment (Unsp spec) [Interp] . . [facility] No Panel InformationOrdered By: Isabelle Frias on 06-08-2024 Pap Smear Specimen Adequacy Comment . [facility] Comment on above: Satisfactory for kristine luation. No endocervical component is identified. 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: Annual Is patient in pain?: No Allergies cefdinir Allergy (Mild, Verified 06/08/24 13:43) Abd cramps/diarrhea Medications ???Medication ???Instructions ???Recorded ???Confirmed ???Type bupropion HCl 200 mg tablet,12 hr 200 mg PO DAILY 05/28/23 06/08/24 History sustained-release (Wellbutrin SR) beclomethasone dipropionate 40 1 inh inhalation BID 06/08/2409/27 History mcg/actuation HFA breath activated aerosol (Qvar RediHaler) omeprazole 40 mg capsule,delayed mg PO DAILY 06/08/24 06/08/24 Hist ory release Is last menstrual period known: Yes Last Menstrual Period: 05/24/24 Post menopausal: No Patient : No : No Control Method: Vasectomy PFSH Medical History Asthma Surgical History House teeth extracted Hx of LASIK Family History Mother Breast cancer, Onset Age: 48 Social History household members: spouse current occupational status: employed 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 is doing sleep studies and having increased anxiety-seeing specialist. vasectomy for contraception. Last PAP: 2021 History of abnormal PAP: na Last mammogram: 2023 History of abnormal mammogram: na Colon cancer screening: Not Due Other preventative health care screenings: PCP Female Reproductive History Last Menstrual Period: 05/24/24 Cycle Length: 21-35 Bleeding Duration: 6 Questions: metorrhagia: No, sexually active: Yes, dyspareunia: No and PCB: No Menopausal Symptoms: Yes sleep problems ROS Const Constitutional: Reports system reviewed and no additional complaints, except as documented Cardio Card: Reports system reviewed and no additional complaints, except as documented Resp Resp: Reports system reviewed and no additional complaints, except as documented GI GI: Reports system reviewed and no additional complaints, except as documented : Reports system reviewed and no additional complaints, except as documented; Denies difficulty voiding, dysuria or urinary frequency Skin Skin/Breast: Reports system reviewed and no additional complaints, except as documented Neuro Neuro: Reports system reviewed and no additional complaints, except as documented Psych Psych: Reports system reviewed and no additional complaints, except as documented; Denies anhedonia, anxiety or depression Exam Const General: cooperative, healthy appearing, comfortable and no acute distress Orientation: alert, awake and oriented x3 Neck Neck: normal visual inspection and full ROM Thyroid: thyroid normal Chest Breast inspection: normal inspection of the breasts and normal inspection of the axillae Breast palpation: normal palpation of the breasts and normal palpation of the axillae Resp Effort Inspection: normal respiratory effort, able to speak in complete sentences and symmetric chest movement GI Inspection: normal to inspection Palpation: soft Rectal Exam: visual inspection normal External Female Exam: normal external appearance and normal appearance of the urethra Urethra: normal appearance of the urethra Speculum Exam - Vagina: normal appearance of the vagina and normal vaginal discharge Speculum Exam - Cervix: normal appearance of the cervix and nontender Bimanual Exam- Vagina Uterus: normal bimanual exam, normal palpation, uterine size normal, No tender and non-tender Bimanual Exam- Adnexa, other: normal Pelvic Support: normal Skin General: no rashes or lesions noted Neuro General: patient alert, patient awake and patient oriented x3 Cognition: normal cognition Speech: speech normal Gait: normal gait Extrem General: normal to inspection (more content not included)... Normal [facility] Service comment (Unsp spec) [Interp]Ordered By: Isabelle Frias on 06-08-2024 Pap Smear Comment (3) . . [facility] Chest PA and Lateralon 05-29 Chest PA and Lateral [facility] Services [address] [place] [address] Chest PA and Lateral MR#: [id number] Acct: [id number] Name: OLIVIA LEA Rep #: [id number] : 1985 F 38 From: Luis Carson MD PCP: Maritza Hood DO Status: REG CLI Study: Chest PA and Lateral Date of Exam: 05/29/24 Exam# [id number] Ordering Dr: Dg Nguyen MD EXAM: XR Chest, 2 Views CLINICAL INDICATION: TECHNIQUE: Frontal and lateral views of the chest. COMPARISON: No relevant prior studies available. FINDINGS: LUNGS AND PLEURAL SPACES: Unremarkable. No consolidation. No pneumothorax. HEART: Unremarkable. No cardiomegaly. MEDIASTINUM: Unremarkable. Normal mediastinal contour. BONES/JOINTS: Unremarkable. No acute fracture. RAD/Chest PA and Lateral IMPRESSION: No acute cardiopulmonary process. Reading Location: [facility] CC: Dr. Dg Nguyen MD; Maritza Hood DO Acute Care Nursing Assistant: Signed [facility] LAB TEST Normal [facility] Comment on above: Order Comment: [id number] [id number] KIWI Result Comment: TEST RESULTS LIMITS [id number] Kiwi Fruit <0.10 kU/L Class 0 Class Description: Levels of Specific IgE Class Description of Class ----- < 0.10 0 Negative 0.10 - 0.31 0/I Equivocal/Low 0.32 - 0.55 I Low 0.56 - 1.40 II Moderate 1.41 - 3.90 III High 3.91 - 19.00 IV Very High 19.01 - 100.00 V Very High >100.00 Very High TESTING PERFORMED AT [facility]. ORIGINAL REPORT ON FILE IN LAB CONTAINS ADDITIONAL TEST SITE INFORMATION. Performed By: #### L 5530.0649, L5530.0089, L5500.0410, L801.1541, L5530.0499, L5530.0589, L801.1543 #### [facility] [address] [place], [place], [address] Miscellaneous Lab Procedure 2on 12-01-2023 [facility] LAB TEST 2 Normal [facility] Comment on above: Order Comment: [id number] PINEAPPLE [id number] PINEAPPLE Result Comment: TEST RESULTS LIMITS [id number] Pineapple <0.10 kU/L Class 0 Class Description: Levels of Specific IgE Class Description of Class ----- < 0.10 0 Negative 0.10 - 0.31 0/I Equivocal/Low 0.32 - 0.55 I Low 0.56 - 1.40 II Moderate 1.41 - 3.90 III High 3.91 - 19.00 IV Very High 19.01 - 100.00 V Very High >100.00 Very High TESTING PERFORMED AT [facility]. ORIGINAL REPORT ON FILE IN LAB CONTAINS ADDITIONAL TEST SITE INFORMATION. Performed By: #### L 5530.0649, L5530.0089, L5500.0410, L801.1541, L5530.0499, L5530.0589, L801.1543 #### [facility] [address] [place], [place], [address] Allergen, Food Profileon CLAM <0.10 Normal Class 0 [facility] Comment on above: Performed By: #### L 5530.0649, L5530.0089, L5500.0410, L801.1541, L5530.0499, L5530.0589, L801.1543 #### [facility] [address] [place], [place], [id number] CODFISH <0.10 Normal Class 0 [facility] Comment on above: Performed By: #### L 5530.0649, L5530.0089, L5500.0410, L801.1541, L5530.0499, L5530.0589, L801.1543 #### [facility] [address] [place], [place], [id number] COMMENT Comment Normal . [facility] Comment on above: Result Comment: Jahaira katz of Specific IgE Class Description of Class ----- < 0.10 0 Negative 0.10 - 0.31 0/I Equivocal/Low 0.32 - 0.55 I Low 0.56 - 1.40 II Moderate 1.41 - 3.90 III High 3.91 - 19.00 IV Very High 19.01 - 100.00 V Very High >100.00 Very High Performed By: #### L 5530.0649, L5530.0089, L5500.0410, L801.1541, L5530.0499, L5530.0589, L801.1543 #### [facility] [address] [place], [place], [id number] CORN <0.10 Normal Class 0 [facility] Comment on above: Performed By: #### L 5530.0649, L5530.0089, L5500.0410, L801.1541, L5530.0499, L5530.0589, L801.1543 #### [facility] [address] [place], [address] EGG, WHITE <0.10 Normal Class 0 [facility] Comment on above: Performed By: #### L 5530.0649, L5530.0089, L5500.0410, L801.1541, L5530.0499, L5530.0589, L801.1543 #### [facility] [address] [place], [address] MILK (COW) <0.10 Normal Class 0 [facility] Comment on above: Performed By: #### L 5530.0649, L5530.0089, L5500.0410, L801.1541, L5530.0499, L5530.0589, L801.1543 #### [facility] [place], [address] PEANUT <0.10 Normal Class 0 [facility] Comment on above: Performed By: #### L 5530.0649, L5530.0089, L5500.0410, L801.1541, L5530.0499, L5530.0589, L801.1543 #### [facility] [address] [place], [place], [facility] SCALLOP <0.10 Normal Class 0 [facility] Comment on above: Performed By: #### L 5530.0649, L5530.0089, L5500.0410, L801.1541, L5530.0499, L5530.0589, L801.1543 #### [facility] [address] [place], [address] SESAME SEED <0.10 Normal Class 0 [facility] Comment on above: Performed By: #### L 5530.0649, L5530.0089, L5500.0410, L801.1541, L5530.0499, L5530.0589, L801.1543 #### [facility] [address] [place], [address] SHRIMP <0.10 Normal Class 0 [facility] Comment on above: Performed By: #### L 5530.0649, L5530.0089, L5500.0410, L801.1541, L5530.0499, L5530.0589, L801.1543 #### [facility] [address] [place], [address] SOYBEAN <0.10 Normal Class 0 [facility] Comment on above: Performed By: #### L 5530.0649, L5530.0089, L5500.0410, L801.1541, L5530.0499, L5530.0589, L801.1543 #### [facility] [address] [place], [address] WALNUT,(Food) <0.10 Normal Class 0 [facility] Comment on above: Performed By: #### L 5530.0649, L5530.0089, L5500.0410, L801.1541, L5530.0499, L5530.0589, L801.1543 #### [facility] [address] [place], [address] WHEAT <0.10 Normal Class 0 [facility] Comment on above: Performed By: #### L 5530.0649, L5530.0089, L5500.0410, L801.1541, L5530.0499, L5530.0589, L801.1543 #### [facility] [address] [place], [address] Bananaon 11-21-2023 BANANA <0.10 Normal Class 0 [facility] Comment on above: Result Comment: Perf ormed at: BN - [facility] [address] [id number] Supervisor Pleating: Mejia De La Fuente MD, Phone: [phone] Performed By: #### L 5530.0649, L5530.0089, L5500.0410, L801.1541, L5530.0499, L5530.0589, L801.1543 #### [facility] [address] [place], [address] Crabon 11-21-2023 CRAB <0.10 Normal Class 0 [facility] Comment on above: Performed By: #### L 5530.0649, L5530.0089, L5500.0410, L801.1541, L5530.0499, L5530.0589, L801.1543 #### [facility] [address] [place], [place], [id number] Egg, Wholeon 11-21-2023 EGG, WHOLE <0.10 Normal Class 0 [facility] Comment on above: Performed By: #### L 5530.0649, L5530.0089, L5500.0410, L801.1541, L5530.0499, L5530.0589, L801.1543 #### [facility] [address] [place], [place], [address] Glutenon 11-21-2023 GLUTEN <0.10 Normal Class 0 [facility] Comment on above: Performed By: #### L 5530.0649, L5530.0089, L5500.0410, L801.1541, L5530.0499, L5530.0589, L801.1543 #### [facility] [address] [place], [place], [address] Absolute lymphocyte countOrd ered By: Tino Hood on 02-06-2023 Lymphocytes Auto (Unsp spec) [#/Vol] 2.43 10*3/uL 0.83-4.51 [facility] Basophil percentageOrdered B y: Tino Hood on 02-06-2023 Basophils/100 WBC (Bld) 0.6 % 0-1 [facility] Bilirubin [Mass/Vol] 0.50 mg/dL 0.20-1.00 [facility] Comment on above: For patients on eltr ombopag therapy, use of Dimension Donaldson TBIL is not recommended. Chloride [Moles/Vol] 107 mmol/L 98-107 [facility] Cholesterol [Mass/Vol] 202 mg/dL <200 [facility] Comment on above: <200 mg/dL Desirable 200-240 mg/dL Borderline >240 mg/dL High Risk Eosinophils/100 WBC (Bld) 1.0 % 0-5 [facility] Glucose [Mass/Vol] 91 mg/dL 74-106 [facility] Neutrophils (Bld) [#/Vol] 3.6 10*3/uL 2.0-7.7 [facility] Neutrophils/100 WBC (Bld) 53.5 % 47-70 [facility] Potassium [Moles/Vol] 4.3 mmol/L 3.5-5.1 [facility] Protein [Mass/Vol] 7.7 g/dL 6.4-8.2 [facility] Sodium [Moles/Vol] 138 mmol/L 136-145 [facility] Triglyceride [Mass/Vol] 85 mg/dL <199 [facility] Comment on above: The drugs N-Acetylcy steine and Metamizole may falsely depress this assay.Serum Triglycerides Reference Interval Normal <150 mg/dL Borderline high 150 - 199 mg/dL High 200 - 499 mg/dL Very High > or = 500 mg/dL WBC (Bld) [#/Vol] 6.7 10*3/uL 4.4-11.0 [facility] Blood erythrocytes count (nu mber/volume)Ordered By: Tino Hood on 02-06-2023 RBC (Bld) [#/Vol] 4.90 10*6/uL 4.2-5.4 [facility] Blood hemoglobin measurement (mass/volume)Ordered By: Tino Hood on 02-06-2023 Hemoglobin (Bld) [Mass/Vol] 15.2 g/dL 12.0-15. 0 [facility] Blood lymphocytes/100 leukoc ytesOrdered By: Tino Hood on 02-06-2023 Lymphocytes/100 WBC (Bld) 36.4 % 19-41 [facility] Blood monocytes/100 leukocyt esOrdered By: Tino Hood on 02-06-2023 Monocytes/100 WBC (Bld) 8.4 % 0-10 [facility] Blood platelet mean volumeOr dered By: Tino Hood on 02-06-2023 Platelet mean volume (Bld) [Entitic vol] 11.3 fL 6.2-12.0 [facility] Determination of erythrocyte mean corpuscular volume (MCV)Ordered By: Tino Hood on 02-06-2023 MCV (RBC) [Entitic vol] 92.9 fL 81-99 [facility] Hematocrit Auto (Bld) [Volum e fraction]Ordered By: Tino Hood on 02-06-2023 Hematocrit (Bld) [Volume fraction] 45.5 % 37-47 [facility] - Chemistry and C hemistry - challengeOrdered By: Tino Hood on 02-06-2023 ALP [Catalytic activity/Vol] 66 U/L 45-117 [facility] ALT [Catalytic activity/Vol] 23 U/L 13-56 [facility] CO2 [Moles/Vol] 27.0 mmol/L 21.0-32.0 [facility] Globulin (S) [Mass/Vol] 3.9 g/dL 2.2-4.2 [facility] Urea nitrogen/Creatinine [Mass ratio] 12.0 mg/mg 10-20 [facility] - Hematology and Cell countsOrdered By: Tino Hood on 02-06-2023 Erythrocyte distribution width (RBC) [Entitic vol] 43.3 fL 35.1-43.9 [facility] Erythrocyte distribution width (RBC) [Ratio] 12.6 % 11.6-14.6 [facility] Immature granulocytes/100 WBC (Bld) 0.100 % 0.0-0.9 [facility] Comment on above: IG% - Immature Granu locytes (promyelocytes, myelocytes and metamyelocytes) > 1% indicates that a LEFT SHIFT is Present. MCH (RBC) [Entitic mass] 31.0 pg 27.0-32.0 [facility] Nucleated RBC/100 WBC (Bld) [Ratio] 0 % 0-5 [facility] MCHC Auto (RBC) [Mass/Vol]Or dered By: Tino Hood on 02-06-2023 MCHC (RBC) [Mass/Vol] 33.4 g/dL 32-36 [facility] No Panel InformationOrdered By: Tino Hood on 02-06-2023 Estimated GFR (MDRD) Amer 88 mL/min >60 [facility] Comment on above: GFR Calc Estimated GFR (MDRD) Non-Af Amer 72 mL/min >60 [facility] Comment on above: Non- GFR Calc Thyroid Stimulating Hormone (TSH) 1.45 uIU/mL 0.358-3.74 [facility] Platelets bldOrdered By: Keagan Hood on 02-06-2023 Platelets (Bld) [#/Vol] 244 10*3/uL 150-450 [facility] Serum or plasma albumin bernard urement (mass/volume)Ordered By: Tino Hood on 02-06-2023 Albumin [Mass/Vol] 3.8 g/dL 3.2-5.0 [facility] Serum or plasma albumin/glob ulin mass ratioOrdered By: Tino Hood on 02-06-2023 Albumin/Globulin [Mass ratio] 1.0 {ratio} 0.9-2.4 [facility] Serum or plasma calcium bernard urement (mass/volume)Ordered By: Tino Hood on 02-06-2023 Calcium [Mass/Vol] 8.8 mg/dL 8.5-10.1 [facility] Serum or plasma cholesterol in HDL measurement (mass/volume)Ordered By: Tino Hood on 02-06-2023 Cholesterol in HDL [Mass/Vol] 71 mg/dL >40 [facility] Comment on above: The drugs N-Acetylcy steine and Metamizole may falsely depress this assay. Reference Range HDL <40 mg/dL Low HDL Cholesterol HDL >or= 60 mg/dL High HDL Cholesterol Serum or plasma cholesterol in VLDL measurement (mass/volume)Ordered By: Tino Hood on 02-06-2023 Cholesterol in VLDL [Mass/Vol] 17 mg/dL 5-40 [facility] Serum or plasma creatinine m easurement (mass/volume)Ordered By: Tino Hood on 02-06-2023 Creatinine [Mass/Vol] 0.92 mg/dL 0.55-1.02 [facility] Comment on above: The validity of the calculated GFR & GFRAA in patients over 70 years has not been determined. Clinical correlation is essential. Serum or plasma low density lipoprotein (LDL) cholesterol measurement (mass/volume)Ordered By: Tino Hood on 02-06-2023 Cholesterol in LDL [Mass/Vol] 114 mg/dL 0-130 [facility] Serum or plasma urea nitroge n measurement (mass/volume)Ordered By: Tino Hood on 02-06-2023 Urea nitrogen [Mass/Vol] 11 mg/dL 7-18 [facility] Thin prep Papanicolaou smear with manual screeningOrdered By: Tino Hood on 02-06-2023 Thin prep Papanicolaou smear with manual screening 18 U/L 15-37 [facility] Thin prep Papanicolaou smear with manual screening 4 5-15 [facility] Whole blood hemoglobin A1c/t otal hemoglobin ratio (mass fraction)Ordered By: Tino Hood on 02-06-2023 HbA1c (Bld) [Mass fraction] 5.1 % 3.8-5.6 [facility] Comment on above: Normal < 5.7 % Predi abetic 5.7 - 6.4 % Diabetic >or= 6.5 % Please note range changes. Office Visit (Urgent Care)on 08-25-2021 Follow-up visit Diagnoses/Problems Assessed Acute sinusitis (461.9) (J01.90) Orders Acute sinusitis Start: Amoxicillin-Pot Clavulanate 875-125 MG Oral Tablet; TAKE 1 TABLET EVERY 12 HOURS WITH MEALS UNTIL GONE Rx By: Sj Baeza; Dispense: 10 Days ; #:20 Tablet; Refill: 0;For: Acute sinusitis; KAYY = N; Sent To: [facility] [id number] Start: Benzonatate 200 MG Oral Capsule; TAKE 1 CAPSULE 3 TIMES DAILY NEEDED Rx By: Sj Baeza; Dispense: 5 Days ; #:15 Capsule; Refill: 0;For: Acute sinusitis; KAYY = N; Sent To: [facility] [id number] Patient Discussion/Summary Please see your primary care physician in 7 days. as needed Robitussin-DM, warm tea with honey, Sudafed, Tylenol, increased fluids and rest. Seek follow-up medical care if symptoms worsen or do not resolve. Chief Complaint Chief Complaints Cough History of Present Illness 45-year-old female with a 12-day history of sinus pressure, postnasal drip, upper respiratory symptoms, and a cough which was initially productive but now more dry. No fever. She had a negative COVID test 1 week ago. Review of systems is otherwise negative for constitutional, ear nose and throat, neck, heart, lungs, and abdomen. Review of Systems Constitutional: as noted in HPI. Active Problems Problems Acute bronchitis (466.0) (J20.9) Acute pharyngitis (462) (J02.9) Acute UTI (599.0) (N39.0) Amenorrhea (626.0) (N91.2) Asthma, cough variant (493.82) (J45.991) Cough (786.2) (R05.9) Diarrhea, travelers' (009.2) (A09) Dysuria (788.1) (R30.0) Encounter for gynecological examination (V72.31) (Z01.419) Encounter for screening mammogram for breast cancer (V76.12) (Z12.31) Fatigue (780.79) (R53.83) GERD (gastroesophageal reflux disease) (530.81) (K21.9) Need for influenza vaccination (V04.81) (Z23) Screening cholesterol level (V77.91) (Z13.220) Sinusitis (473.9) (J32.9) Urinary frequency (788.41) (R35.0) Weight gain (783.1) (R63.5) Past Medical History Problems History of acute sinusitis (V12.69) (Z87.09) Resolved Date: 25 Aug 2021 Surgical History Problems History of Appendectomy History of Oral Surgery Tooth Extraction Family History Mother Family history of Environmental allergies Family history of hypertension (V17.49) (Z82.49) Family history of malignant neoplasm of breast (V16.3) (Z80.3) Father Family history of hypercholesterolemia (V18.19) (Z83.42) Family history of skin cancer (V16.8) (Z80.8) Grandparent Family history of arthritis (V17.7) (Z82.61) Family history of cardiac disorder (V17.49) (Z82.49) Family history of diabetes mellitus (V18.0) (Z83.3) Family history of hypercholesterolemia (V18.19) (Z83.42) Family history of hypertension (V17.49) (Z82.49) Social History Problems Never a smoker Allergies NoKnown No Known Allergies Updated By: KendallJuly; 04/22/2017 6:55:49 PM Current Meds Medication NameInstruction Amitriptyline HCl - 10 MG Oral Tablet Fish Oil OIL Nexplanon 68 MG Subcutaneous Implant Symbicort 160-4.5 MCG/ACT Inhalation Aerosolinhale 2 puffs into lungs twice daily Ventolin HFA 108 (90 Base) MCG/ACT Inhalation Aerosol SolutionINHALE 2 PUFFS EVERY 4 TO 6 HOURS NEEDED Vitals Vital Signs Recorded: [id number] 07:32PM Uqkxpakyzkr18.1 F Heart Rate91 Ofyaoopisxh78 Ejwrwyti686 Qbilczpja89 Height5 ft 6 in Tokycc815 lb 9.17 oz BMI Yyogmlxcoc23.3 kg/m2 BSA Calculated1.77 Tobacco Useb) No PHQ-2 #1. Over the last 2 weeks have you felt down, depressed or hopeless? (If yes, answer PHQ-9 below)No PHQ-2 #2. Over the last 2 weeks have you felt little interest or pleasure in doing things? (If yes, answer PHQ-9 below)No Fall Screeninga) No falls within the last year O2 Tityaeufko72 Pain Scale4 Physical Exam Patient appears in no apparent distress and is well-hydrated. Vital signs noted. There is tenderness of the right frontal and maxillary sinuses. Examination of the neck, ears, and lungs is normal. Signatures Electronically signed by : Sj Baeza MD; Aug 25 2021 7:41PM EST (Author) Normal Touchworks 19-49 Yearson 08-22-2021 19-49 Years Diagnoses/Problems Health Maintenance/Risks Encounter for preventive health examination (V70.0) (Z00.00) Patient Discussion/Summary Rec she take 2 puffs bid Symbicort to help with cough/recovery from recent URI; referral for ADHD evaluation By signing my name below, IMartine Scribe1 , attest that this documentation has been prepared under the direction and in the presence of Dr. Nuria Dickinson MD.1 All medical record entries made by the Demondibe were at my direction and personally dictated by me. I have reviewed the chart and agree that the record accurately reflects my personal performance of the history, physical exam, discussion and plan. 1 . 1 Amended By: Martine House; Aug 22 2021 10:06 PM ESTHistory of Present Illness EP. Here for CPE. No Breast exam or Pap. States onset of cough and cold. Olivia is a 35 year old female presenting today for an annual physical exam visit. -Has developed a 1 1,2 cough- 2 1,2 had 2 1,2 URI symptoms 2 -Cough is dry and onsets with even just tickle in her throat. -Causes dyspnea when the coughing onsets -Had a chronic cough back in 2019 and was prescribed Symbicort (1 puff a day), which she has been slowly weaning off of. She is still currently taking it. -Also takes takes Amitriptyline 10 mg , 2 tablets daily. -Has been seeing a therapist for a while and was diagnosed with depression. -Inquires about ADHD evaluation. SHe is very forgetful, stumbles over words, and has insomnia. Has done some research. -At re-evaluation for depression with therapist she brought up concern for ADHD. A referral was supposed to go to neuropsychologist, Dr. Gorge Aguilar in [place]. -Noticed since July she has not been as scatter brained but very overwhelmed. Sold and bought a house and is getting in September. Extremely urgent with things. Has not felt like everything is racing like crazy. -Does feel her depression is still present but not as heavy as it was. -Got off Nexplanon in February and her periods have been regular, it has also helped with her depression being off of it. 1 1 Amended By: Martine House; Aug 22 2021 9:55 PM EST 2 Amended By: Nuria Dickinson; Aug 23 2021 11:13 PM ESTReview of Systems General: no fever or night sweats, no change in weight Eyes: no vision disturbance ENT: no mouth lesions, no sore throat, and no dysphagia CV: no chest pain, no palpitations Resp: no shortness of breath, no cough (except for just recently) GI: no abdominal pain, no change in bowel habits : no urinary problems MSK: no arthralgias, myalgias, or back pain Skin; no rashes or new/changed skin lesions Neuro: no headaches Active Problems Problems Acute bronchitis (466.0) (J20.9) Acute pharyngitis (462) (J02.9) Acute sinusitis (461.9) (J01.90) Acute UTI (599.0) (N39.0) Amenorrhea (626.0) (N91.2) Asthma, cough variant (493.82) (J45.991) Cough (786.2) (R05.9) Diarrhea, travelers' (009.2) (A09) Dysuria (788.1) (R30.0) Encounter for gynecological examination (V72.31) (Z01.419) Encounter for screening mammogram for breast cancer (V76.12) (Z12.31) Fatigue (780.79) (R53.83) GERD (gastroesophageal reflux disease) (530.81) (K21.9) Need for influenza vaccination (V04.81) (Z23) Screening cholesterol level (V77.91) (Z13.220) Sinusitis (473.9) (J32.9) Urinary frequency (788.41) (R35.0) Weight gain (783.1) (R63.5) Surgical History Problems History of Appendectomy History of Oral Surgery Tooth Extraction Family History Mother Family history of Environmental allergies Family history of hypertension (V17.49) (Z82.49) Family history of malignant neoplasm of breast (V16.3) (Z80.3) Father Family history of hypercholesterolemia (V18.19) (Z83.42) Family history of skin cancer (V16.8) (Z80.8) Grandparent Family history of arthritis (V17.7) (Z82.61) Family history of cardiac disorder (V17.49) (Z82.49) Family history of diabetes mellitus (V18.0) (Z83.3) Family history of hypercholesterolemia (V18.19) (Z83.42) Family history of hypertension (V17.49) (Z82.49) Social History Problems Never a smoker Allergies NoKnown No Known Allergies Updated By: KendallJuly; 04/22/2017 6:55:49 PM Current Meds Medication NameInstruction Amitriptyline HCl - 10 MG Oral Tablet Fish Oil OIL Nexplanon 68 MG Subcutaneous Implant Symbicort 160-4.5 MCG/ACT Inhalation Aerosolinhale 2 puffs into lungs twice daily Ventolin HFA 108 (90 Base) MCG/ACT Inhalation Aerosol SolutionINHALE 2 PUFFS EVERY 4 TO 6 HOURS NEEDED Physical Exam Alert, well-appearing. HEENT: OP clear. Sclera white. Pupils equal and round. EACs and TMs clear. Neck: Supple. No palpable masses. Thyroid was not enlarged. CVS: RRR, no murmurs. No peripheral edema. Respiratory: Normal inspirations and expirations. Clear and equal breath sounds. GI: Soft, nontender, no masses or hepatosplenomegaly. Results/Data Reviewed recent labs- all normal 'Scores and Scales' Signatures (more content not included)... Normal TouchT-ZONE CBC AND DIFFERENTIALon 08-20 % AUTOMATED IMMATURE GRAN 0.4 % Normal 0.0 - 0.9 [facility] Comment on above: Result Comment: Dominga ture Granulocyte Count (IG) includes promyelocytes, myelocytes and metamyelocytes but does not include bands. Percent differential counts (%) should be interpreted in the context of the absolute cell counts (cells/L). Performed By: #### C BCDF #### [facility] [address] [place] [address] Basophils (Bld) [#/Vol] 0.03 10*3/uL Normal 0.00 - 0.10 [facility] Comment on above: Performed By: #### C BCDF #### [facility] [address] [place] [address] Basophils/100 WBC (Bld) 0.3 % Normal 0.0 - 2.0 [facility] Comment on above: Performed By: #### C BCDF #### [facility] [address] [place] [address] Eosinophils (Bld) [#/Vol] 0.08 10*3/uL Normal 0. 00 - 0.70 [facility] Comment on above: Performed By: #### C BCDF #### [facility] [address] [place] [address] Eosinophils/100 WBC (Bld) 0.7 % Normal 0.0 - 6.0 [facility] Comment on above: Performed By: #### C BCDF #### [facility] [address] [place] [address] Erythrocyte distribution width (RBC) [Ratio] 12.5 % Normal 11.5 - 14.5 [facility] Comment on above: Performed By: #### C BCDF #### [facility] [address] [place] [address] Hematocrit (Bld) [Volume fraction] 42.8 % Normal 36.0 - 46.0 [facility] Comment on above: Performed By: #### C BCDF #### [facility] [address] [place] [address] Hemoglobin (Bld) [Mass/Vol] 13.6 g/dL Normal 12.0 - 16.0 [facility] Comment on above: Performed By: #### C BCDF #### [facility] [address] [place] [address] Lymphocytes (Bld) [#/Vol] 2.25 10*3/uL Normal 1. 20 - 4.80 [facility] Comment on above: Performed By: #### C BCDF #### [facility] [address] [place] [address] Lymphocytes/100 WBC (Bld) 20.7 % Normal 13 .0 - 44.0 [facility] Comment on above: Performed By: #### C BCDF #### [facility] [address] [place] [address] MCHC (RBC) [Mass/Vol] 31.8 g/dL Low 32.0 - 36.0 [facility] Comment on above: Performed By: #### C BCDF #### [facility] [address] [place] [address] MCV (RBC) [Entitic vol] 97 fL Normal 80 - 100 [facility] Comment on above: Performed By: #### C BCDF #### [facility] [address] [place] [address] Monocytes (Bld) [#/Vol] 0.78 10*3/uL Normal 0.10 - 1.00 [facility] Comment on above: Performed By: #### C BCDF #### [facility] [address] [place] [address] Monocytes/100 WBC (Bld) 7.2 % Normal 2.0 - 10.0 [facility] Comment on above: Performed By: #### C BCDF #### [facility] [address] [place] [address] Neutrophils (Bld) [#/Vol] 7.69 10*3/uL Normal 1. 20 - 7.70 [facility] Comment on above: Performed By: #### C BCDF #### [facility] [address] [place] [address] Neutrophils/100 WBC (Bld) 70.7 % Normal 40 .0 - 80.0 [facility] Comment on above: Performed By: #### C BCDF #### [facility] [address] [place] [address] NUCLEATED RBC 0.0 /100 WBC Normal 0.0-0.0 [facility] Comment on above: Performed By: #### C BCDF #### [facility] [address] [place] [address] Platelets (Bld) [#/Vol] 211 10*3/uL Normal 150 - 450 [facility] Comment on above: Performed By: #### C BCDF #### [facility] [address] [place] [address] RBC 4.43 x10E12/L Normal 4.00 - 5.20 [facility] Comment on above: Performed By: #### C BCDF #### [facility] [address] [place] [address] WBC (Bld) [#/Vol] 10.9 10*3/uL Normal 4.4 - 11.3 [facility] Comment on above: Performed By: #### C BCDF #### [facility] [address] [place] [address] COMPREHENSIVE PANELon 2021 Albumin [Mass/Vol] 4.0 g/dL Normal 3.4 - 5.0 [facility] Comment on above: Performed By: #### C MP #### [facility] [id number] [place] [address] ALP [Catalytic activity/Vol] 78 U/L Normal 33 - 110 [facility] Comment on above: Performed By: #### C MP #### [facility] [address] [place] [address] ALT [Catalytic activity/Vol] 14 U/L Normal 7 - 45 [facility] Comment on above: Result Comment: Wanda ents treated with Sulfasalazine may generate falsely decreased results for ALT. Performed By: #### C MP #### [facility] [address] [place] [address] Anion gap [Moles/Vol] 10 mmol/L Normal 10 - 20 [facility] Comment on above: Performed By: #### C MP #### [facility] [address] [place] [address] AST [Catalytic activity/Vol] 13 U/L Normal 9 - 39 [facility] Comment on above: Performed By: #### C MP #### [facility] [address] [place] [address] Bilirubin [Mass/Vol] 0.9 mg/dL Normal 0.0 - 1.2 [facility] Comment on above: Performed By: #### C MP #### [facility] [address] [place] [address] Calcium [Mass/Vol] 9.4 mg/dL Normal 8.6 - 10.6 [facility] Comment on above: Performed By: #### C MP #### [facility] [address] [place] [address] Chloride [Moles/Vol] 103 mmol/L Normal 98 - 107 [facility] Comment on above: Performed By: #### C MP #### [facility] [address] [place] [address] Creatinine [Mass/Vol] 0.70 mg/dL Normal 0.50 - 1.05 [facility] Comment on above: Performed By: #### C MP #### [facility] [address] [place] [address] eGFR FEMALE >90 Normal >90 [facility] Comment on above: Result Comment: CALC ULATIONS OF ESTIMATED GFR ARE PERFORMED USING THE 2020 CKD-EPI STUDY REFIT EQUATION WITHOUT THE RACE VARIABLE FOR THE IDMS-TRACEABLE CREATININE METHODS. https://jasn.asnjournals.org/content/early/ASN. 5860411646 Performed By: #### C MP #### [facility] [address] [place] [address] Glucose [Mass/Vol] 80 mg/dL Normal 74 - 99 [facility] Comment on above: Performed By: #### C MP #### [facility] [address] [place] [address] HCO3 (Bld) [Moles/Vol] 30 mmol/L Normal 21 - 32 [facility] Comment on above: Performed By: #### C MP #### [facility] [address] [place] [address] Potassium [Moles/Vol] 4.4 mmol/L Normal 3.5 - 5.3 [facility] Comment on above: Performed By: #### C MP #### [facility] [address] [place] [address] Protein [Mass/Vol] 7.3 g/dL Normal 6.4 - 8.2 [facility] Comment on above: Performed By: #### C MP #### [facility] [address] [place] [address] Sodium [Moles/Vol] 139 mmol/L Normal 136 - 145 [facility] Comment on above: Performed By: #### C MP #### [facility] [address] [place] [address] Urea nitrogen [Mass/Vol] 6 mg/dL Normal 6 - 23 [facility] Comment on above: Performed By: #### C MP #### [facility] [address] [place] [address] Complete Blood Count + Diffe alice 08-20-2021 Basophils/100 WBC (Bld) 0.3 % 0.0 - 2.0 [facility] Work Phone: Erythrocyte distribution width (RBC) [Ratio] 12.5 % See Below [facility] Work [facility]: Comment on above: Reference Range: 11. 5 - 14.5 Hematocrit (Bld) [Volume fraction] 42.8 % See Below [facility] Work Phone: Comment on above: Reference Range: 36. 0 - 46.0 Hemoglobin (Bld) [Mass/Vol] 13.6 g/dL See [facility] Work Phone: Comment on above: Reference Range: 12. 0 - 16.0 Lymphocytes/100 WBC (Bld) 20.7 % See Below [facility] Work Phone: Comment on above: Reference Range: 13. 0 - 44.0 MCHC (RBC) [Mass/Vol] 31.8 g/dL below low threshold See Below [facility] Work Phone: Comment on above: Reference Range: 32. 0 - 36.0 MCV (RBC) [Entitic vol] 97 fL 80 - 100 [facility] Work Phone: Monocytes/100 WBC (Bld) 7.2 % 2.0 - 10.0 [facility] Work Phone: Neutrophils/100 WBC (Bld) 70.7 % See Below [facility] Work Phone: Comment on above: Reference Range: 40. 0 - 80.0 Platelets (Bld) [#/Vol] 211 10*3/uL 150 - 450 [facility] Work Phone: RBC (Bld) [#/Vol] 4.43 {x10E12/L} See Below [facility] Work Phone: Comment on above: Reference Range: 4.0 0 - 5.20 WBC (Bld) [#/Vol] 10.9 10*3/uL 4.4 - 11.3 [facility] Work Phone: Complete Blood Count + Differential 0.03 {x10E9/L} See Below [facility] Work Phone: Comment on above: Reference Range: 0.0 0 - 0.10 Complete Blood Count + Differential 0.08 {x10E9/L} See Below [facility] Work Phone: Comment on above: Reference Range: 0.0 0 - 0.70 Complete Blood Count + Differential 0.78 {x10E9/L} See Below [facility] Work Phone: Comment on above: Reference Range: 0.1 0 - 1.00 Complete Blood Count + Differential 2.25 {x10E9/L} See Below [facility] Work Phone: Comment on above: Reference Range: 1.2 0 - 4.80 Complete Blood Count + Differential 7.69 {x10E9/L} See Below [facility] Work Phone: Comment on above: Reference Range: 1.2 0 - 7.70 Complete Blood Count + Differential 0.7 % 0.0 - 6.0 [facility] Work Phone: Complete Blood Count + Differential 0.4 % 0.0 - 0.9 [facility] Work Phone: Comment on above: Immature Granulocyte Count (IG) includes promyelocytes, myelocytes and metamyelocytes but does not include bands. Percent differential counts (%) should be interpreted in the context of the absolute cell counts (cells/L). Complete Blood Count + Differential 0.0 {/100_WBC} 0.0-0.0 [facility] Work Phone: LIPID PANEL (CORONARY RISK 2 )on 08-20-2021 Cholesterol [Mass/Vol] 155 mg/dL Normal 0 - 199 [facility] Comment on above: Result Comment: . AGE DESIRABLE BORDERLINE HIGH HIGH 0-19 Y 0 - 169 170 - 199 >/= 200 20-24 Y 0 - 189 190 - 224 >/= 225 >24 Y 0 - 199 200 - 239 >/= 240 All ranges are based on fasting samples. Specific therapeutic targets will vary based on patient-specific cardiac risk. . Pediatric guidelines reference:Pediatrics 2011, 128(S5). Adult guidelines reference: NCEP ATPIII Guidelines, DYLAN 2001, 258:2486-97 . Venipuncture immediately after or during the administration of Metamizole may lead to falsely low results. Testing should be performed immediately prior to Metamizole dosing. Performed By: #### L IPID #### [facility] [address] [place] [address] Cholesterol in HDL [Mass/Vol] 59.3 mg/dL Normal [facility] Comment on above: Result Comment: . AGE VERY LOW LOW NORMAL HIGH 0-19 Y < 35 < 40 40-45 ---- 20-24 Y ---- < 40 >45 ---- >24 Y ---- < 40 40-60 >60 . Performed By: #### L IPID #### [facility] [address] [place] [address] Cholesterol in LDL [Mass/Vol] 80 mg/dL Normal 0 - 99 [facility] Comment on above: Result Comment: . NEAR BORD AGE DESIRABLE OPTIMAL HIGH HIGH VERY HIGH 0-19 Y 0 - 109 --- 110-129 >/= 130 ---- 20-24 Y 0 - 119 --- 120-159 >/= 160 ---- >24 Y 0 - 99 100-129 130-159 160-189 >/=190 . Performed By: #### L IPID #### [facility] [address] [place] [address] Cholesterol in VLDL [Mass/Vol] 16 mg/dL Normal 0 - 40 [facility] Comment on above: Performed By: #### L IPID #### [facility] [address] [place] [address] Cholesterol.total/Cholester ol in HDL [Mass ratio] 2.6 {ratio} Normal [facility] Comment on above: Result Comment: REF VALUES DESIRABLE < 3.4 HIGH RISK > 5.0 Performed By: #### L IPID #### [facility] [address] [place] [address] Triglyceride [Mass/Vol] 78 mg/dL Normal 0 - 149 [facility] Comment on above: Result Comment: . AGE DESIRABLE BORDERLINE HIGH HIGH VERY HIGH 0 D-90 D 19 - 174 ---- ---- ---- 91 D- 9 Y 0 - 74 75 - 99 >/= 100 ---- 10-19 Y 0 - 89 90 - 129 >/= 130 ---- 20-24 Y 0 - 114 115 - 149 >/= 150 ---- >24 Y 0 - 149 150 - 199 200- 499 >/= 500 . Venipuncture immediately after or during the administration of Metamizole may lead to falsely low results. Testing should be performed immediately prior to Metamizole dosing. Performed By: #### L IPID #### [facility] [address] [place] [address] Laboratory - Chemistry and C hemistry - challengeon 08-20-2021 Albumin BCP dye [Mass/Vol] 4.0 g/dL 3.4 - 5.0 [facility] Work Phone: ALP [Catalytic activity/Vol] 78 U/L 33 - 110 [facility] Work Phone: ALT With P-5'-P [Catalytic activity/Vol] 14 U/L 7 - 45 [facility] Work Phone: Comment on above: Patients treated wit h Sulfasalazine may generate falsely decreased results for ALT. Anion gap [Moles/Vol] 10 mmol/L 10 - 20 [facility] Work Phone: AST With P-5'-P [Catalytic activity/Vol] 13 U/L 9 - 39 [facility] Work Phone: Bilirubin [Mass/Vol] 0.9 mg/dL 0.0 - 1.2 [facility] Work Phone: Calcium [Mass/Vol] 9.4 mg/dL 8.6 - 10.6 [facility] Work Phone: Chloride [Moles/Vol] 103 mmol/L 98 - 107 [facility] Work Phone: CO2 [Moles/Vol] 30 mmol/L 21 - 32 [facility] Work Phone: Creatinine [Mass/Vol] 0.70 mg/dL See Below [facility] Work Phone: Comment on above: Reference Range: 0.5 0 - 1.05 Glucose [Mass/Vol] 80 mg/dL 74 - 99 [facility] Work Phone: Potassium [Moles/Vol] 4.4 mmol/L 3.5 - 5.3 [facility] Work Phone: Protein [Mass/Vol] 7.3 g/dL 6.4 - 8.2 [facility] Work Phone: Sodium [Moles/Vol] 139 mmol/L 136 - 145 [facility] Work Phone: TSH Qn 1.71 m[IU]/L See Below [facility] Work Phone: Comment on above: Reference Range: 0.4 4 - 3.98 TSH testing is performed using different testing methodology at [facility] than at other [facility]. Direct result comparisons should only be made within the same method. Urea nitrogen [Mass/Vol] 6 mg/dL 6 - 23 [facility] Work Phone: Lipid Panelon 08-20-2021 Cholesterol [Mass/Vol] 155 mg/dL 0 - 199 [facility] Work Phone: Comment on above: . AGE DESIRABLE BORD AGNES HIGH HIGH 0-19 Y 0 - 169 170 - 199 >/= 200 20-24 Y 0 - 189 190 - 224 >/= 225 >24 Y 0 - 199 200 - 239 >/= 240 All ranges are based on fasting samples. Specific therapeutic targets will vary based on patient-specific cardiac risk.. Pediatric guidelines reference:Pediatrics 2011, 128(S5). Adult guidelines reference: NCEP ATPIII Guidelines, DYLAN 2001, 258:2486-97. Venipuncture immediately after or during the administration of Metamizole may lead to falsely low results. Testing should be performed immediately prior to Metamizole dosing. Cholesterol in HDL [Mass/Vol] 59.3 mg/dL [facility] Work Phone: Comment on above: . AGE VERY LOW LOW N ORMAL HIGH 0-19 Y < 35 < 40 40-45 ---- 20-24 Y ---- < 40 >45 ---- >24 Y ---- < 40 40-60 >60. Cholesterol in LDL [Mass/Vol] 80 mg/dL 0 - 99 [facility] Work Phone: Comment on above: . NEAR BORD AGE VON RABLE OPTIMAL HIGH HIGH VERY HIGH 0-19 Y 0 - 109 --- 110-129 >/= 130 ---- 20-24 Y 0 - 119 --- 120-159 >/= 160 ---- >24 Y 0 - 99 100-129 130-159 160-189 >/=190. Cholesterol.total/Cholester ol in HDL [Mass ratio] 2.6 {ratio} [facility] Work Phone: Comment on above: REF VALUESDESIRABLE < 3.4HIGH RISK > 5.0 Triglyceride [Mass/Vol] 78 mg/dL 0 - 149 [facility] Work Phone: Comment on above: . AGE DESIRABLE BORD AGNES HIGH HIGH VERY HIGH 0 D-90 D 19 - 174 ---- ---- ----91 D- 9 Y 0 - 74 75 - 99 >/= 100 ---- 10-19 Y 0 - 89 90 - 129 >/= 130 ---- 20-24 Y 0 - 114 115 - 149 >/= 150 ---- >24 Y 0 - 149 150 - 199 200- 499 >/= 500. Venipuncture immediately after or during the administration of Metamizole may lead to falsely low results. Testing should be performed immediately prior to Metamizole dosing. Lipid Panel 16 mg/dL 0 - 40 [facility] Work Phone: No Panel Informationon 08-20 >90 >90 -[facility] Work Phone: Comment on above: CALCULATIONS OF DEANDRE MATED GFR ARE PERFORMED USING THE 2020 CKD-EPI STUDY REFIT EQUATION WITHOUT THE RACE VARIABLE FOR THE IDMS-TRACEABLE CREATININE METHODS.https://jasn.asnjournals.org/content/early/ASN.5935424895 TSH WITH REFLEX TO FREE T4 I F ABNORMALon 08-20-2021 TSH Qn 1.71 m[IU]/L Normal 0.44 - 3.98 [facility] Comment on above: Result Comment: TSH testing is performed using different testing methodology at [facility] than at other [facility]. Direct result comparisons should only be made within the same method. Performed By: #### T HYDS #### [facility] [address] [place] [address] TESTOS FRon 12-13-2020 Testosterone Free Male <1 Normal So [facility] Comment on above: Order Comment: Order ed on [facility]# [id number] Result Comment: Testosterone Free, Adult Male was performed at your laboratory's request. This assay has poor precision and is inaccurate at free testosterone concentrations typically seen in women and children. An accurate and precise mass spectrometry method is recommended for women and children ([employer] test code [id number], Testosterone, Free, Females or Children). INTERPRETIVE INFORMATION: Testosterone, Free Brandon Stage IV 35 - 169 pg/mL Brandon Stage V 41 - 239 pg/mL The concentration of Free Testosterone is derived from a mathematical expression based on the constant for the binding of testosterone to Sex Hormone Binding Globulin (SHBG). Access complete set of age- and/or gender-specific reference intervals for this test in the [employer] Laboratory Test Directory (Draft). Performed By: [facility] [address] [place] [address] Cable Splicer: Allison Hobbs MD Performed By: #### 1 [id number] #### [facility] [address] [place] [address] Art Objects Supervisor: MD Maryellen Muro Office-Progress Notes-Pr sidney 12-11-2020 [facility] Office-Progress Notes-Provider Assessment/Plan 1. Abnormal uterine bleeding N93.9 Discussed removal of nexplanon 2. Nexplanon in place Z97.5 contraception options reviewed. Chief Complaint Here for continuous bleeding with nexplanon - has been on slynd for about 2 mon, still had a period but very light, 2nd pack it did go away, but her face broke out. since Nov has had 2 period. also low sex drive. still losing hair History of Present Illness Did well with first nexplanon, second one placed 2018 and initially did well. She was having irregular bleeding starting in the second year of nexplanon. I gave her slynd and she was still having spotting. Mid October began having acne-it is better since she stopped the slynd but still present. Libido is super low-been present for some time. She had a URI with prolonged coughing and felt like she couldn't have sex because of the coughing. She was prescribed amitriptyline for the chronic cough. She doesn't want children, her has a 16 year old. Dx with depression in July. We discussed other contraceptive options including OCP, nuvaring, phexxi or annovera. Decreased libido seemed to be her biggest concern. Physical Exam Vitals & Measurements BP: 110/70 HT: 168 cm WT: 64.4 kg BMI: 22.82 LMP: 12/08/2020 00:00 EDT Depression Screening Scores No Depression Screening data available for this encounter. Fall Risk Assessment Is the patient ambulatory (mobile): Yes (12/11/20 13:47:00) Have you had a fall within the past: No (12/11/20 13:47:00) Have you had 2 or more falls in the past: No (12/11/20 13:47:00) The vital signs were reviewed and are normal. General appearance: well developed and well nourished Lungs: Normal respiratory effort, clear to auscultation Extremities: No edema or clubbing Psychiatric: Mood: anxious Affect normal: yes Insight and judgement normal: yes [employer] Additional Details Menstrual History Menstrual StatusMenarcheal Last Menstrual Lytfng6612/08/2020 OB History History (0,0,0,0) No previous pregnancies history have been recorded Problem List/Past Medical History Ongoing BMI 22.0-22.9, adult Chronic cough Depression Nexplanon in place Historical No qualifying data Procedure/Surgical History Last pap- Normal () Nexplanon Lt arm (06/28/2018) Medications albuterol 90 mcg/inh inhalation aerosol, 1 puffs, Inhalation, ONCE, PRN amitriptyline 10 mg oral tablet Nexplanon 68 mg subcutaneous implant, Subcutaneous, ONCE Symbicort 160mcg-4.5mcg inh Allergies Omnicef Social History Alcohol - Denies Alcohol Use, 11/30/2017 Sexual Other contraceptive use: Nexplanon Lt arm 2019., 08/28/2020 Substance Abuse - Denies Substance Abuse, 11/30/2017 Tobacco Never (less than 100 in lifetime) Tobacco Use:., 11/30/2017 Family History Breast cancer: Mother (Dx at 48). Normal [facility] Ambulatory Clinical Summaryo n 12-11-2020 Ambulatory Clinical Summary DEANDRA BELTRE Herbie :1985 Visit Date:12/11/2020 Ambulatory Visit Instructions Your Diagnosis Abnormal uterine bleeding Nexplanon in place Decreased libido Your Care Team Attending Physician - MICHELLE PAL MD, FACOG Primary Care Physician - NURIA DICKINSON Procedures Performed Last pap- Normal () Nexplanon Lt arm (06/28/2018) Discharge Vitals Blood Pressure 110/70 Height 168 cm Weight 64.4 kg BMI 22.82 Systolic Blood Pressure: 110 mmHg (12/11/20 13:47:00) Diastolic Blood Pressure: 70 mmHg (12/11/20 13:47:00) Mean Arterial Pressure: 83 mmHg (12/11/20 13:47:00) Height/Length Measured: 168 cm (12/11/20 13:47:00) Weight Measured: 64.4 kg (12/11/20 13:47:00) Body Mass Index Measured: 22.82 kg/m2 (12/11/20 13:47:00) Height/Length Measured - in2: 66 in (12/11/20 13:47:00) Ht/Wt Measurement Refused by Patient?2: No (12/11/20 13:47:00) Last Menstrual Period: 12/08/20 (12/11/20 13:47:00) What to do next Scheduled Follow-Up Appointments No results You Need to Schedule the Following Appointments TESTOS FR, ROUTINE, 12/11/2020, Order for future visit, Dx: Decreased libido VIT D 25 LEVEL, ROUTINE, 12/11/2020, Order for future visit, Dx: Decreased libido Medications What How Much When Instructions Unchanged albuterol = Proventil, Ventolin (albuterol 90 mcg/ inh inhalation aerosol) 1 Puffs Inhalation ONCE as needed for Cough Unchanged amitriptyline = Elavil (amitriptyline 10 mg oral tablet) Unchanged budesonide-formoterol (Symbicort 160mcg-4.5mcg inh) inhale 2 puffs into lungs twice daily Unchanged etonogestrel (Nexplanon 68 mg subcutaneous implant) Subcutaneous ONCE What How Much When Why Comments Stop Taking doxycycline (Vibramycin 100 mg oral capsule) 1 Capsules Oral EVERY TWELVE HOURS Acute URI Cough Deviated septum Duration: 10 Days Stop Taking fluticasone nasal (fluticasone 50 mcg/ inh nasal spray) 2 Sprays Nasal DAILY WITH BREAKFAST Chronic GERD Hiatal hernia Chronic cough Deviated septum Chronic rhinitis Stop Taking sucralfate (Carafate 1 g/ 10 mL oral suspension) TAKE 2 TEASPOONSFUL (10ML) BY MOUTH 3 TIMES A DAY Allergies Omnicef Problems Ongoing - Any problem that you are currently receiving treatment for. BMI 22.0-22.9, adult Chronic cough Depression Nexplanon in place Common Emergency Awareness Tips IS IT A STROKE? Act FAST and Check for these signs: FACE Does the face look uneven? ARM Does one arm drift down? SPEECH Does their speech sound strange? TIME Call at any sign of stroke Heart Attack Signs Chest discomfort: Most heart attacks involve discomfort in the center of the chest and lasts more than a few minutes, or goes away and comes back. It can feel like uncomfortable pressure, squeezing, fullness or pain. Discomfort in upper body: Symptoms can include pain or discomfort in one or both arms, back, neck, jaw or stomach. Shortness of breath: With or without discomfort. Other signs: Breaking out in a cold sweat, nausea, or lightheaded. Remember, MINUTES DO MATTER. If you experience any of these heart attack warning signs, call to get immediate medical attention! Normal [facility] VIT D 25 LEVELon 12-11-2020 Vit D 25 23 ng/mL Normal [facility] Comment on above: Order Comment: Order ed on Fin# [id number] Result Comment: Less than 20 ng/ml Deficient 20-30 ng/ml Insufficient 30-100 ng/ml Sufficient Greater than 100 ng/ml Potential toxicity Patients who have recently undergone fluorescein dye angiography in the past 48 to 72 hours (or longer if renal insufficient) may have falsely elevated results. Performed By: #### [id number] #### [facility] [address] [place] [address] Art Objects Supervisor: Todd Bradshaw MD Phone [employer] 10-25-2020 Phone [email or web address] - From: Maribell Farrell To: MICHELLE PAL MD; Sent: 10/24/2020 15:35:22 EDT Patient called in and LVM. She states that she has been taking the Slynd that you gave to help with her bleeding and she is now out of that. She states that she is leaving for a trip for two weeks and is wondering if she can have another pack? I can call her to give her a sample so she is covered and will also get her booked for another appointment as she continues to have this bleeding Samples of Slynd given and pt is scheduled for 12/11/20 Normal [facility] Phone [employer] 10-24-2020 Phone Msg - From: Maribell Farrell ([facility]) To: MICHELLE PAL MD; Sent: 10/24/2020 15:41:50 EDT Subject: FW: Michelle Pal MD --- [facility] [place] PROCESS LEAD: Control Pills Vacation Pt has been scheduled From: OLIVIA BELTRE To: Michelle Pal MD --- [facility] PROCESS LEAD ([facility] [place] [facility]) Sent: 10/24/2020 02:50 p.m. EDT Subject: Michelle Pal MD --- [facility] PROCESS LEAD: Control Pills Vacation Thank you for your message. It has been successfully sent to the appropriate care team. Daryl Pal, I met with you at the end of September for abnormal bleeding while on Nexplanon implant. You provided me with a pack of control pills in case I started bleeder again, which I had. I used the pills for about 5 days, things seemed to stop, 2 days later started again. I have been taking the pills since and in the last few days have noticed the spotting going away. I am down to the last 5 pills (not placebos) and in 5 days I leave to go backpacking in [place] and [place] for 2 weeks. I am nervous once I run out of the pills a period will come back with more flow while on the trail and am hoping to receive another pack to get me through the trip. I would also like to schedule an appointment upon my return because I am worried that 1. I am on double hormones and that cannot be the best thing for me, and 2. Is my nexplanon malfunctioning and potentially cause an unwanted ? I did leave a message at the office. 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 If you need to see me I am available today, Wednesday, Wednesday and Wednesday any time (but not from 9:30-10:00am 10/28). Thank you so much for everything! Olivia Beltre [phone] Normal [facility] Phone Msgon 08-29-2020 Phone Msg - From: MICHELLE PAL MD, FACOG To: OLIVIA BELTRE Sent: 08/29/2020 07:55:40 EDT Subject: Normal thyroid panel Olivia, Results: Date Result Name Value Ref Range 08/28/2020 12:26 Thyroxine 7.0 ug/dl (4.5 - 10.9) 08/28/2020 12:26 TSH 0.93 uIU/ml (0.36 - 3.74) 08/28/2020 12:26 Free T3 2.5 pg/mL (2.2 - 4.0) This is a normal thyroid panel. Please let us know if we need to forward this to your other physician. Michelle Pal MD Normal [facility] Ambulatory Clinical Summaryo n 08-28-2020 Ambulatory Clinical Summary DEANDRA BELTRE :1985 Visit Date:08/28/2020 Ambulatory Visit Instructions Your Diagnosis Abnormal uterine bleeding Your Care Team Attending Physician - MOLINA CUBA FACOG, MICHELLE Primary Care Physician - NURIA DICKINSON Procedures Performed Last pap- Normal () Nexplanon Lt arm (06/28/2018) Discharge Vitals Blood Pressure 88/64 Height 168 cm Weight 62.4 kg BMI 22.11 Systolic Blood Pressure: 88 mmHg Low (08/28/20 11:49:00) Diastolic Blood Pressure: 64 mmHg (08/28/20 11:49:00) Mean Arterial Pressure: 72 mmHg (08/28/20 11:49:00) Height/Length Measured: 168 cm (08/28/20 11:49:00) Weight Measured: 62.4 kg (08/28/20 11:49:00) Body Mass Index Measured: 22.11 kg/m2 (08/28/20 11:49:00) Ht/Wt Measurement Refused by Patient?2: No (08/28/20 11:49:00) Last Menstrual Period: 08/12/20 (08/28/20 11:49:00) What to do next You Need to Schedule the Following Appointments FT3, ROUTINE, 08/28/2020, Order for future visit, Dx: Abnormal uterine bleeding T4, ROUTINE, 08/28/2020, Order for future visit, Dx: Abnormal uterine bleeding TSH, ROUTINE, 08/28/2020, Order for future visit, Dx: Abnormal uterine bleeding Medications What How Much When Why Instructions Unchanged albuterol = Proventil, Ventolin (albuterol 90 mcg/ inh inhalation aerosol) 1 Puffs Inhalation ONCE as needed for Cough Unchanged amitriptyline = Elavil (amitriptyline 10 mg oral tablet) Unchanged budesonide-formoterol (Symbicort 160mcg-4.5mcg inh) inhale 2 puffs into lungs twice daily Unchanged doxycycline (Vibramycin 100 mg oral capsule) 1 Capsules Oral EVERY TWELVE HOURS Acute URI Cough Deviated septum Duration: 10 Days Unchanged etonogestrel (Nexplanon 68 mg subcutaneous implant) Subcutaneous ONCE Unchanged fluticasone nasal (fluticasone 50 mcg/ inh nasal spray) 2 Sprays Nasal DAILY WITH BREAKFAST Chronic GERD Hiatal hernia Chronic cough Deviated septum Chronic rhinitis Unchanged sucralfate (Carafate 1 g/ 10 mL oral suspension) TAKE 2 TEASPOONSFUL (10ML) BY MOUTH 3 TIMES A DAY What How Much When Comments Stop Taking esomeprazole (esomeprazole 40 mg oral delayed release capsule) 1 Capsules Oral DAILY Stop Taking norethindrone (Aygestin 5 mg oral tablet) 1 Tabs Oral DAILY Allergies Omnicef Problems Ongoing - Any problem that you are currently receiving treatment for. Nexplanon in place Common Emergency Awareness Tips IS IT A STROKE? Act FAST and Check for these signs: FACE Does the face look uneven? ARM Does one arm drift down? SPEECH Does their speech sound strange? TIME Call at any sign of stroke Heart Attack Signs Chest discomfort: Most heart attacks involve discomfort in the center of the chest and lasts more than a few minutes, or goes away and comes back. It can feel like uncomfortable pressure, squeezing, fullness or pain. Discomfort in upper body: Symptoms can include pain or discomfort in one or both arms, back, neck, jaw or stomach. Shortness of breath: With or without discomfort. Other signs: Breaking out in a cold sweat, nausea, or lightheaded. Remember, MINUTES DO MATTER. If you experience any of these heart attack warning signs, call to get immediate medical attention! Normal [facility] FT3on 08-28-2020 Free T3 [Mass/Vol] 2.5 pg/mL Normal 2.2-4.0 [facility] Comment on above: Order Comment: Order ed on Fin# [id number] Performed By: #### [id number] #### [facility] [id number] [place] [address] Art Objects Supervisor: Todd Bradshaw MD T4on 08-28-2020 T4 [Mass/Vol] 7.0 ug/dL Normal 4.5-10.9 [facility] Comment on above: Order Comment: Order ed on Fin# [id number] Result Comment: Kenzie puncture should occur prior to sulfasalazine administration due to the potential for falsely elevated results. Baseline assay values before administration of sulfasalazine and sulfapyridine therapy would not be affected. Performed By: #### [id number] #### [facility] [address] [place] [address] [employer] Supervisor: Todd Bradshaw MD TSHon 08-28-2020 TSH Qn 0.93 m[IU]/L Normal 0.36-3.74 [facility] Comment on above: Order Comment: Order ed on Fin# [id number] Result Comment: High levels of serum biotin may interfere with this test. Performed By: #### [id number] #### [facility] [id number] [place] [address] [employer] Supervisor: Todd Bradshaw MD Phone Msgon 08-07-2020 Phone Msg - From: Laquita Rascon To: Zack GALEAS, [place]; Sent: 08/06/2020 12:33:25 EDT Subject: Abnormal Periods - Nexplanon Pt called and left vm, is concerned with how abnormal her periods have been. Has Nexplanon since 2016 and is experiencing significant amount of bleeding. Doesn't know if she needs to come in for appointment or not, states it is not an emergency. Spoke to pt and she has been using a tampon or super tampon daily for the last [address] Traore pt can try Aygestin 5mgm until appt on 08/28/20 to see if helps with bleeding- Pt would like to try. Aygestin 5 mgm proposed Normal [facility] Complete Blood Count + Diffe alice 11-09-2019 Basophils (Bld) [#/Vol] 0.04 {x10E9/L} See Belo w [facility] Work Phone: Comment on above: Reference Range: 0.0 0 - 0.10 Basophils/100 WBC (Bld) 0.6 % 0.0 - 2.0 [facility] Work Phone: Eosinophils (Bld) [#/Vol] 0.07 {x10E9/L} See Be low [facility] Work Phone: Comment on above: Reference Range: 0.0 0 - 0.70 Eosinophils/100 WBC (Bld) 1.0 % 0.0 - 6.0 [facility] Work Phone: Erythrocyte distribution width (RBC) [Ratio] 12.6 % See Below [facility] Work Phone: Comment on above: Reference Range: 11. 5 - 14.5 Hematocrit (Bld) [Volume fraction] 40.9 % See Below [facility] Work Phone: Comment on above: Reference Range: 36. 0 - 46.0 Hemoglobin (Bld) [Mass/Vol] 13.9 g/dL See Belo w [facility] Work Phone: Comment on above: Reference Range: 12. 0 - 16.0 Lymphocytes (Bld) [#/Vol] 2.33 {x10E9/L} See Be low [facility] Work Phone: Comment on above: Reference Range: 1.2 0 - 4.80 Lymphocytes/100 WBC (Bld) 32.7 % See Below [facility] Work Phone: Comment on above: Reference Range: 13. 0 - 44.0 MCHC (RBC) [Mass/Vol] 34.0 g/dL See Below [facility] Work Phone: Comment on above: Reference Range: 32. 0 - 36.0 MCV (RBC) [Entitic vol] 91 fL 80 - 100 [facility] Work Phone: Monocytes (Bld) [#/Vol] 0.67 {x10E9/L} See Belo [facility] Work Phone: Comment on above: Reference Range: 0.1 0 - 1.00 Monocytes/100 WBC (Bld) 9.4 % 2.0 - 10.0 [facility] Work Phone: Neutrophils (Bld) [#/Vol] 4.00 {x10E9/L} See Be low [facility] Work Phone: Comment on above: Reference Range: 1.2 0 - 7.70 Neutrophils/100 WBC (Bld) 56.2 % See Below [facility] Work Phone: Comment on above: Reference Range: 40. 0 - 80.0 Platelets (Bld) [#/Vol] 211 {x10E9/L} 150 - 450 [facility] Work Phone: RBC (Bld) [#/Vol] 4.47 {x10E12/L} See Below [facility] Work Phone: Comment on above: Reference Range: 4.0 0 - 5.20 WBC (Bld) [#/Vol] 0.0 {/100_WBC} 0.0-0.0 [facility] Work Phone: WBC (Bld) [#/Vol] 7.1 {x10E9/L} 4.4 - 11.3 [facility] Work Phone: Complete Blood Count + Differential 0.1 % 0.0 - 0.9 [facility] Work Phone: Comment on above: Immature Granulocyte Count (IG) includes promyelocytes, myelocytes and metamyelocytes but does not include bands. Percent differential counts (%) should be interpreted in the context of the absolute cell counts (cells/L). Thyroidon 11-09-2019 TSH Qn 0.97 {mIU/L} See Below [facility] Work Phone: Comment on above: Reference Range: 0.4 4 - 3.98 TSH testing is performed using different testing methodology at [facility] than at other [facility]. Direct result comparisons should only be made within the same method. Vitamin D 25-Hydroxyon 11-08 Calcidiol [Mass/Vol] 38 ng/mL [facility] Work Phone: Comment on above: .DEFICIENCY: < 20 NG /MLINSUFFICIENCY: 20-29 NG/MLSUFFICIENCY: 30-100 NG/MLTHIS ASSAY ACCURATELY QUANTIFIES THE SUM OFVITAMIN D3, 25-HYDROXY AND VIT D2,25-HYDROXY. Lipid Panelon 10-27-2019 Cholesterol [Mass/Vol] 181 mg/dL 0 - 199 [facility] Work Phone: Comment on above: . AGE DESIRABLE BORD AGNES HIGH HIGH 0-19 Y 0 - 169 170 - 199 >/= 200 20-24 Y 0 - 189 190 - 224 >/= 225 >24 Y 0 - 199 200 - 239 >/= 240 All ranges are based on fasting samples. Specific therapeutic targets will vary based on patient-specific cardiac risk.. Pediatric guidelines reference:Pediatrics 2011, 128(S5). Adult guidelines reference: NCEP ATPIII Guidelines, DYLAN 2001, 258:2486-97. Venipuncture immediately after or during the administration of Metamizole may lead to falsely low results. Testing should be performed immediately prior to Metamizole dosing. Cholesterol in HDL [Mass/Vol] 69.2 mg/dL [facility] Work Phone: Comment on above: . AGE VERY LOW LOW N ORMAL HIGH 0-19 Y < 35 < 40 40-45 ---- 20-24 Y ---- < 40 >45 ---- >24 Y ---- < 40 40-60 >60. Cholesterol in LDL [Mass/Vol] 100 mg/dL above high threshold 0 - 99 [facility] Work Phone: Comment on above: . NEAR BORD AGE VON RABLE OPTIMAL HIGH HIGH VERY HIGH 0-19 Y 0 - 109 --- 110-129 >/= 130 ---- 20-24 Y 0 - 119 --- 120-159 >/= 160 ---- >24 Y 0 - 99 100-129 130-159 160-189 >/=190. Cholesterol.total/Cholester ol in HDL [Mass ratio] 2.6 {ratio} [facility] Work Phone: Comment on above: REF VALUESDESIRABLE < 3.4HIGH RISK > 5.0 Triglyceride [Mass/Vol] 60 mg/dL 0 - 149 [facility] Work Phone: Comment on above: . AGE DESIRABLE BORD AGNES HIGH HIGH VERY HIGH 0 D-90 D 19 - 174 ---- ---- ----91 D- 9 Y 0 - 74 75 - 99 >/= 100 ---- 10-19 Y 0 - 89 90 - 129 >/= 130 ---- 20-24 Y 0 - 114 115 - 149 >/= 150 ---- >24 Y 0 - 149 150 - 199 200- 499 >/= 500. Venipuncture immediately after or during the administration of Metamizole may lead to falsely low results. Testing should be performed immediately prior to Metamizole dosing. Lipid Panel 12 mg/dL 0 - 40 [facility] Work Phone: Metabolic Panelon 10-27-2019 ALP [Catalytic activity/Vol] 62 U/L 33 - 110 [facility] Work Phone: Anion gap [Moles/Vol] 12 mmol/L 10 - 20 [facility] Work Phone: Bilirubin [Mass/Vol] 0.9 mg/dL 0.0 - 1.2 [facility] Work Phone: Calcium [Mass/Vol] 9.2 mg/dL 8.6 - 10.6 [facility] Work Phone: Chloride [Moles/Vol] 103 mmol/L 98 - 107 [facility] Work Phone: CO2 [Moles/Vol] 28 mmol/L 21 - 32 [facility] Work Phone: Creatinine [Mass/Vol] 0.75 mg/dL See Below [facility] Work Phone: Comment on above: Reference Range: 0.5 0 - 1.05 Glucose [Mass/Vol] 75 mg/dL 74 - 99 [facility] Work Phone: Potassium [Moles/Vol] 4.7 mmol/L 3.5 - 5.3 [facility] Work Phone: Comment on above: MILD HEMOLYSIS DETEC VERENICE. The result may be falsely elevated due tohemolysis or other interferents. Clinical correlation is recommended.Repeat testing may be considered. Protein [Mass/Vol] 7.0 g/dL 6.4 - 8.2 [facility] Work Phone: Sodium [Moles/Vol] 138 mmol/L 136 - 145 [facility] Work Phone: Urea nitrogen [Mass/Vol] 8 mg/dL 6 - 23 [facility] Work Phone: Otheron 10-27-2019 Albumin BCP dye [Mass/Vol] 4.4 g/dL 3.4 - 5.0 [facility] Work Phone: ALT With P-5'-P [Catalytic activity/Vol] 21 U/L 7 - 45 [facility] Work Phone: Comment on above: Patients treated wit h Sulfasalazine may generate falsely decreased results for ALT. AST With P-5'-P [Catalytic activity/Vol] 30 U/L 9 - 39 [facility] Work Phone: Comment on above: MILD HEMOLYSIS DETEC VERENICE. The result may be falsely elevated due tohemolysis or other interferents. Clinical correlation is recommended.Repeat testing may be considered. >60 >60 [facility] Work Phone: Comment on above: CALCULATIONS OF DEANDRE MATED GFR ARE PERFORMED USING THE MDRD STUDY EQUATION FOR THE IDMS-TRACEABLE CREATININE METHODS. CLIN CHEM 2007;53:766-72 Imm/Pathon 01-05-2019 Cytology report Cyto stain.thin prep Doc (Cvx/Vag) [facility] Work Phone: Otheron 01-05-2019 59 Date of Procedure: 01/05/2019 Pathologist: [facility], CytologyDate Reported: 01/10/2019Date Received: 01/05/2019Submitting Physician: NURIA DICKINSON FINAL CYTOLOGICAL INTERPRETATIONA. THINPREP PAP CERVICAL Reflex - Ascus only: Specimen adequacy: SATISFACTORY FOR EVALUATION. Quality Indicator: Endocervical/transform ation zone component is present. General Categorization: NEGATIVE FOR INTRAEPITHELIAL LESION OR MALIGNANCY. Ancillary Testing: Specimen does not meet the requisition-stated criteria for HPV testing.See Pap test interpretation above. This specimen has been analyzed by the OneBreathPrep Imaging System ([employer]an automated imaging and review system, which assists the laboratory inevaluating cells on ThinPrep Pap tests. Following automated imaging, selectedfields from every slide were reviewed by a armament aircraft mechanic and/or pathologist.Electronic ally Signed Out By [facility], Cytology//DDH By the signature on this report, the individual or group listed as making theFinal Interpretation/Diagnos is certifies that they have reviewed this case.Educational Note:Cervical cytology is a screening procedure primarily for squamous cancers andprecursors and has associated false-negative and false-positive results asevidenced by published data. Your patient's test should be interpreted in thiscontext, together with patient's history and clinical findings. Regularsampling and follow-up of unexplained clinical signs and symptoms arerecommended to minimize false negative results. Clinical HistoryDate of Last Menstrual Period: UNKNOWNOther Clinical Conditions:HPV Reflex for ASC-US only - Include HPV Genotype Source of SpecimenA: THINPREP PAP CERVICAL Reflex - Ascus only [facility] Work Phone: Vital Signs Date Time Vital Sign Value Performing Clinician Facility 06-08-2024 13:41-0500 Body height 167.64 cm Maritza Sana DO Work Phone: [facility] 06-08-2024 13:41-0500 Body mass index (BMI) [Ratio] 21.7 kg/m2 Maritza Sana DO Work Phone: [facility] 06-08-2024 13:41-0500 Body weight 60.89 kg Maritza Sana DO Work Phone: [facility] 06-08-2024 13:41-0500 Diastolic blood pressure 72 mm[Hg] Maritza Sana DO Work Phone: [facility] 06-08-2024 13:41-0500 Systolic blood pressure 109 mm[Hg] Maritza Sana DO Work Phone: [facility] 05-14-2023 09:57-0500 Body temperature 98.6 [degF] Bessy Brigotti RETAIL PRESENTATION SPECIALIST.[facility] Work Phone: [facility] 05-14-2023 09:57-0500 Body weight 63.96 kg Bessy Brigotti RETAIL PRESENTATION SPECIALIST.[facility] Work Phone: [facility] 05-14-2023 09:57-0500 Diastolic blood pressure 81 mm[Hg] Bessy Brigotti RETAIL PRESENTATION SPECIALIST.[facility] Work Phone: [facility] 05-14-2023 09:57-0500 Heart rate 68 /min Bessy Brigotti RETAIL PRESENTATION SPECIALIST.[facility] Work Phone: [facility] 05-14-2023 09:57-0500 Respiratory rate 20 /min Bessy Brigotti RETAIL PRESENTATION SPECIALIST.[facility] Work Phone: [facility] 05-14-2023 09:57-0500 SaO2% (BldA) [Mass fraction] 100 % Bessy Brigotti RETAIL PRESENTATION SPECIALIST.[facility] Work Phone: [facility] 05-14-2023 09:57-0500 Systolic blood pressure 118 mm[Hg] Bessy Brigotti RETAIL PRESENTATION SPECIALIST.OVERHEAD DISTRIBUTION ENGINEER, DNP Work Phone: [facility] 11-17-2019 16:25-0400 BMI (Body Mass Index) 22.97 kg/m2 [facility] Work Phone: 11-17-2019 16:25-0400 Body weight 64.55 kg [facility] Work Phone: 11-17-2019 16:25-0400 BP Diastolic 64 mm[Hg] [facility] Work Phone: 11-17-2019 16:25-0400 BP Systolic 118 mm[Hg] [facility] Work Phone: 11-17-2019 16:25-0400 BSA (Body Surface Area) 1.73 m2 [facility] Work Phone: 11-17-2019 16:25-0400 Height 167.64 cm [facility] Work Phone: 11-06-2019 18:04-0400 BMI (Body Mass Index) 23.15 kg/m2 [facility] Work Phone: 11-06-2019 18:04-0400 Body Temperature 98.6 [degF] [facility] Work Phone: 11-06-2019 18:04-0400 Body weight 65.05 kg Nuria [facility] Work Phone: 11-06-2019 18:04-0400 BP Diastolic 70 mm[Hg] Nuria Adlerrt [facility] Work Phone: 11-06-2019 18:04-0400 BP Systolic 102 mm[Hg] Nuria Adlerrt [facility] Work Phone: 11-06-2019 18:04-0400 BSA (Body Surface Area) 1.74 m2 Nuria Dickinson [facility] Work Phone: 11-06-2019 18:04-0400 Height 167.64 cm Nuria Dickinson [facility] Work Phone: 01-05-2019 18:03-0400 BMI (Body Mass Index) 20.5 kg/m2 Nuria Dikcinson [facility] Work Phone: 01-05-2019 18:03-0400 Body Temperature 98.9 [degF] Nuria Dickinson [facility] Work Phone: 01-05-2019 18:03-0400 Body weight 57.61 kg Nuria Dickinson [facility] Work Phone: 01-05-2019 18:03-0400 BP Diastolic 60 mm[Hg] Nuria Adlerrt [facility] Work Phone: 01-05-2019 18:03-0400 BP Systolic 98 mm[Hg] Karin Alok [facility] Work Phone: 01-05-2019 18:03-0400 BSA (Body Surface Area) 1.65 m2 Nuria Dickinson [facility] Work Phone: 01-05-2019 18:03-0400 Height 167.64 cm Nuria Adlerrt [facility] Work Phone: 01-05-2019 18:03-0400 Pulse (Heart Rate) 62 /min Nuria Dickinson [facility] Work Phone: Encounters Encounter Date Encounter Type Care Provider Facility Start: 10-24-2024 End: 10-24-2024 Patient encounter procedure Annie Peraza OD Work Phone: Ophthalmology Comment on above: Meibomian gland dysf unction (MGD) of upper and lower lids of both eyes (Primary Dx); Dry eye syndrome of both eyes; Status post LASIK surgery of both eyes Start: 10-24-2024 End: 10-24-2024 ambulatory ANNIE PERAZA Facility:[facility] Start: 09-04-2024 End: 09-04-2024 ambulatory Maritza Sana DO Work Phone: [facility] Work Phone: Start: 09-04-2024 End: 09-04-2024 Patient encounter procedure Isabelle Frias CNM -Outpatient Breast Imaging Work Phone: Start: 09-04-2024 End: 09-04-2024 ambulatory Isabelle Frias Facility:[facility] Start: 06-21-2024 End: 06-21-2024 ambulatory Maritza Sana DO Work Phone: [facility] Work Phone: Start: 06-21-2024 End: 06-21-[address] Dg Nguyen MD -Laboratory Work Phone: Start: 06-20-2024 End: 06-21-2024 ambulatory Maritza Sana DO Work Phone: [facility] Work Phone: Start: 06-20-2024 End: 06-20-[address] Dg Nguyen MD -Laboratory Work Phone: Start: 06-20-2024 End: 06-20-2024 ambulatory Maritza Sana VSC Facility:[facility] Start: 06-08-2024 End: 06-08-2024 ambulatory Maritza Sana DO Work Phone: [facility] Work Phone: Start: 06-08-2024 End: 06-08-2024 Patient encounter procedure Isabelle Frias CNM -Laboratory, Specimen Work Phone: Start: 06-08-2024 Encounter for gynecological examination (general) (routine) without abnormal findings Isabelle Frias [facility] Start: 06-08-2024 End: 06-08-2024 Patient encounter procedure Isabelle Frias CN -[facility] Work Phone: Start: 06-08-2024 End: 06-08-2024 Patient encounter status [facility]le [facility] Start: 06-08-2024 End: 06-08-2024 ambulatory Isabelle Frias Facility[place] Start: 06-08-2024 End: 06-08-2024 ambulatory Isabelle Frias Facility:[facility] Start: 05-29-2024 End: 05-29-2024 ambulatory Maritza Hood DO Work Phone: [facility] Work Phone: Start: 05-29-2024 End: 05-29-[address] Dg Nguyen MD -Radiology, [facility] Work Phone: Start: 05-29-2024 End: 05-29-2024 ambulatory Maritza Hood VSC Facility:[facility] Start: 11-16-2023 End: 11-16-2023 ambulatory Can Barcenasur Facility:[facility] Start: 10-19-2023 End: 10-19-2023 Patient encounter procedure Annie Peraza OD Work Phone: Ophthalmology Comment on above: Meibomian gland dysf unction (MGD) of upper and lower lids of both eyes (Primary Dx); Dry eye syndrome of both eyes; Status post LASIK surgery of both eyes Start: 05-14-2023 End: 05-14-2023 Patient encounter procedure Bessy Raman APRN.OVERHEAD DISTRIBUTION ENGINEER, DNP Work Phone: [facility] Comment on above: Herpes zoster withou t complication (Primary Dx) Start: 02-06-2023 End: 02-06-2023 ambulatory [facility] Work Phone: Start: 02-06-2023 End: 02-06-2023 Patient encounter procedure [facility]-Laboratory Work Phone: Start: 04-01-2022 End: 04-01-2022 Patient encounter procedure Frank Li MD Work Phone: Ophthalmology Comment on above: Meibomian gland dysf unction (MGD) of upper and lower lids of both eyes (Primary Dx); Punctate keratitis of both eyes; Status post LASIK surgery of both eyes Start: 02-18-2022 End: 02-18-2022 Patient encounter procedure Frank Li MD Work Phone: Ophthalmology Comment on above: Meibomian gland dysf unction (MGD) of upper and lower lids of both eyes (Primary Dx); Punctate keratitis of both eyes; Status post LASIK surgery of both eyes Start: 01-21-2022 End: 01-21-2022 Patient encounter procedure Frank Li MD Work Phone: Ophthalmology Comment on above: Punctate keratitis, bilateral (Primary Dx); Meibomian gland dysfunction (MGD) of upper and lower lids of both eyes; Status post LASIK surgery of both eyes Start: 01-07-2022 End: 01-07-2022 Patient encounter procedure Frank Li MD Work Phone: Ophthalmology Comment on above: Dry eye syndrome of both eyes (Primary Dx); Status post LASIK surgery of both eyes; Anxiety disorder, unspecified type; Asthma, unspecified asthma severity, unspecified whether complicated, unspecified whether persistent Start: 08-24-2021 Chart Update Nuria burdick Work Phone: [facility] Work Phone: Start: 08-23-2021 Refill No Espinosa i, MD Work Phone: Pulmonary Medicine Comment on above: Refill Request Start: 08-22-2021 Periodic preventive med est patient 18-39 yrs Nuria Dickinson Work Phone: [facility] Physician [facility] Work Phone: Start: 08-14-2021 AUDIT Nuria burdick Work Phone: [facility] Physician [facility] Work Phone: Start: 11-06-2019 [facility] encounter [facility]: Start: 01-05-2019 Patient encounter procedure Nuria Dickinson [facility] Physician [facility] Work Phone: Start: 03-31-2018 Patient encounter procedure Nuria Dickinson [facility] Work Phone: Start: 03-04-2018 Patient encounter procedure LUIS LEUNG Facility:[facility] Start: 12-31-2017 Patient encounter procedure LUIS LEUNG Facility:[facility] Start: 12-13-2017 Patient encounter procedure LUIS LEUNG Facility:[id number] Start: 11-12-2017 [facility] Start: 09-02-2017 Patient encounter procedure Nuria Dickinson [facility] Work Phone: Start: 08-09-2017 [facility] Start: 06-10-2017 [facility] Start: 04-22-2017 Patient encounter procedure Nuria Dickinson [facility] Work Phone: Start: 01-20-2017 Nursing evaluation o f patient and report Nuria Dickinson [facility] Work Phone: Patient encounter status Nuria Dickinson Work Phone: [facility] Physician [facility] Work Phone: Procedures Date Procedure Procedure Detail Performing Clinician Start: 09-04-2024 Screening mammography K risten Sana DO Work Phone: Start: 06-21-2024 Antibody measurement Kr islester Sana DO Work Phone: Comment on above: The atypical pANCA p attern has been observed in asignificant percentage of patients with ulcerative colitis,primary sclerosing cholangitis and autoimmune hepatitis. Start: 06-21-2024 Antibody to lupus La protein measurement Maritza Hood DO Work Phone: Comment on above: Previous reported re sult: TNP AIEdited by: INFCE on 06/23/24:1008 AMENDED REPORT 06/23/24 1008 Anti-SS-B previously reported as: Test not performed Start: 06-21-2024 Antibody to SS-A measurement Maritza Hood [employer] Work Phone: Comment on above: Previous reported re sult: TNP AIEdited by: INFCE on 06/23/24:1008 AMENDED REPORT 06/23/24 1008 Anti-SS-A previously reported as: Test not performed Start: 06-20-2024 D-dimer assay, quantitative Maritza Hood [employer] Work Phone: Comment on above: NORMAL D-Dimer level (<0.50) indicates no DVT or PE. Start: 06-08-2024 Liquid based cervica l cytology screening Maritza Hood [employer] Work Phone: Comment on above: NEGATIVE FOR INTRAEP ITHELIAL LESION OR MALIGNANCY.THIS SPECIMEN WAS RESCREENED PART OF OUR TRAIN MASTER PROGRAM. This liquid based Th inPrep(R) pap test was screened withthe use of an image guided system. Start: 05-29-2024 X-ray of chest, PA a nd lateral views Maritza Hood DO Work Phone: Start: 01-05-2019 Comprehensive metabo lic 2000 panel Nuria Dickinson Start: 01-05-2019 Lipid panel Nuria Dickinson Start: 01-05-2019 Microscopic observat ion [Identifier] in Cervix by Cyto stain.thin prep Nuria Dickinson Start: 05-22-2016 History of laser ass isted in situ keratomileusis Status post LASIK surgery of both eyes No Monreal MD Work Phone: Appendectomy Nuria devlin History of laser ass isted in situ keratomileusis Status post LASIK surgery of both eyes Frank Li MD Work Phone: History of laser ass isted in situ keratomileusis Status post LASIK surgery of both eyes Frank Li MD Work Phone: History of laser ass isted in situ keratomileusis Status post LASIK surgery of both eyes Frank Li MD Work Phone: History of laser ass isted in situ keratomileusis Status post LASIK surgery of both eyes Frank Li MD Work Phone: History of laser ass isted in situ keratomileusis Status post LASIK surgery of both eyes Annie Peraza OD Work Phone: History of laser ass isted in situ keratomileusis Status post LASIK surgery of both eyes Annie Peraza OD Work Phone: History of Oral Surg yovana Tooth Extraction Nuria Dickinson Plan of Treatment Date Care Activity Detail Author Start: 07-28-2032 Urine microalbumin profile DTaP,Tdap,Td Vaccine (3 - Td or Tdap) [facility] Start: 10-25-2025 End: 10-25-2025 Patient encounter procedure 10/25/2025 1:00 PM EDT Office Visit [facility] [address] [place] [address] Annie Peraza, OD [address] [place] [address] Diagn[facility] [address] [id number] 1 yr- complete eye exam Ophthalmology Comment on above: 1 yr- complete eye e xam Start: 12-04-2024 Influenza vaccination Influenza Vacc ine (#1) [facility] Start: 10-19-2024 End: 10-19-2024 Patient encounter procedure 10/19/2024 2:30 PM EDT Office Visit [facility] [address] [place] [address] Annie Peraza, OD [address] [place] [address] 1 YR F/U complete eye exam Ophthalmology Comment on above: 1 YR F/U complete ey e exam Start: 06-08-2024 Liquid based cervica l cytology screening [facility] Start: 12-05-2023 Influenza vaccination Influenza Vacc ine (#1) [facility] Start: 2023 Screening for malignant neoplasm of breast Mammogram Screening [facility] Start: 04-05-2023 Behavioral Health Screening Behavioral Health Screening [facility] Start: 04-05-2023 Depression Assessment Depression Ass essment [facility] Start: 12-04-2022 Covid-19 Vaccine () Covid-19 Vaccine () [facility] Start: 12-04-2021 Influenza vaccination INFLUENZA (#1) [facility] Start: 08-22-2021 PHYSICAL, Provider: Nuria Dickinson, Status: Pen, Time: 3:00 PM PHYSICAL, Provider: Nuria Dickinson, Status: Pen, Time: 3:00 PM [facility] Work Phone: Start: 04-05-2021 DEPRESSION ASSESSMENT DEPRESSION ASS ESSMENT [facility] Start: 03-12-2021 COVID-19 VACCINE (4 - Booster for Pfizer series) COVID-19 VACCINE (4 - Booster for Pfizer series) [facility] Start: 01-05-2019 Microscopic observation Cyto stain.thin prep Nom (Cvx) PAP ELECTRICIAN BUS, Cytology [facility] Work Phone: Start: 09-05-2013 HPV TESTING HPV TESTING [facility] Start: 09-05-2013 Screening for malignant neoplasm of cervix HPV Testing [facility] Start: 09-05-2004 PAP TESTING PAP TESTING [facility] Start: 09-05-2004 Screening for malignant neoplasm of cervix [facility] Start: 09-05-2002 Pneumococcal vaccination Pneumococcal Vaccine (1 of 2 - PCV) [facility] Start: 09-05-2002 Urine microalbumin profile DTAP,TDAP,TD (1 - Tdap) [facility] Start: 09-05-2001 ANNUAL PCP TEAM CHRONIC DISEASE VISIT ANNUAL PCP TEAM CHRONIC DISEASE VISIT [facility] Start: 09-05-2001 Anxiety Screening Anxiety Screening [facility] Start: 09-05-2001 Depression Screening Depression Scre ening [facility] Start: 09-05-2001 HEPATITIS C SCREENING HEPATITIS C [facility] Start: 09-05-2001 Hepatitis C screening Hepatitis C [facility] Start: 09-05-2001 HIV SCREENING HIV SCREENING [facility] Start: 09-05-2001 HIV screening HIV Screening [facility] Start: 1995 Adult depression screening assessment DEPRESSION SCREENING [facility] Start: 09-05-1989 PNEUMOCOCCAL (1 - PCV) PNEUMOCOCCAL (1 - PCV) [facility] Start: 09-05-1989 Pneumococcal vaccination Pneumococcal Vaccine (1 of 2 - PCV) [facility] Start: 1983 HEPATITIS B (1 of 3 - 3-dose series) HEPATITIS B (1 of 3 - 3-dose series) [facility] Cytology report of Cervical or vaginal smear or scraping Cyto stain.thin prep [facility] MG Breast - bilatera l Screening [facility] Path report.final Dx Spec [facility] NEGATED: Highlighted row has been ruled out! Planned Goals not documented [facility] Work Phone: Immunizations Immunization Date Immunization Notes Care Provider Fa [facility] 01-25-2023 influenza virus vacc ine, unspecified formulation Annie Peraza OD Work Phone: [facility] 01-22-2021 influenza, injectabl e, quadrivalent, contains preservative No Monreal MD Work Phone: [facility] 01-05-2019 influenza, injectabl e, quadrivalent, contains preservative; Translations: [Flulaval Quadrivalent Intramuscular Suspension] Nuria Dickinson [facility] Work Phone: Comment on above: Series: Payers Date Payer Category Payer Self-pay 2023 [facility] 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 2008 Unknown 1985 Unknown [id number] 1983 Unknown [id number] 1983 Unknown [id number] Unknown [facility] [id number] Unknown [id number] Unknown [id number] Unknown [id number] 462 Unknown [id number] 462 Unknown [id number] 462 Unknown [id number] Unknown [id number] 462 Social History Date Type Detail Facility Start: 04-01-2022 End: 10-19-2023 Never a smoker Never a smoker [facility] Work Phone: Start: 04-28-2016 End: 06-08-2024 Tobacco smoking status NHIS Never smoked tobacco [facility] Start: 04-28-2016 Tobacco use and exposure Smokeless tobacco non-user [facility] Start: 02-10-2021 End: 10-24-2024 Alcohol intake Current non-drinker of alcohol (finding) [facility] Start: 1985 Sex Assigned At Female C [facility] Start: 01-11-2022 End: 02-18-2022 Exposure to SARS-CoV-2 (event) Not sure [facility] Start: 04-01-2022 End: 10-19-2023 Tobacco use panel [facility] National Score (1-100), lower number is lower risk 62 [facility] Start: 11-29-2019 Gender identity Identifies as female gender (finding) [facility] Start: 11-29-2019 Sexual orientation Heterosexual (fin ding) [facility] Start: 06-08-2024 End: 06-30-2024 Sex Female (finding) [facility] NEGATED: Highlighted row - - [facility] Work Phone: Functional Status Date Assessment Result Facility NEGATED: Highlighted row Functional performance Functional status health issues are not documented Disease [facility] Work Phone: Mental Status Date Assessment Result Facility NEGATED: Highlighted row Cognitive function [Interpretation] Cognitive status health issues are not documented Disease [facility] Work Phone: Clinical Notes 04-28-2016 to 10-24-2024 Annie Peraza OD - 10/24/2024 1:41 PM EDT Note Date & Type Note Facility 10-24-2024 Note HNO ID: [id number] Author: ANNIE PERAZA OD Service: ? Author Type: BOX CHIPPER Type: Progress Notes Filed: 10/24/2024 13:45 Note Text: 1. Meibomian gland dysfunction (MGD) of upper and lower lids of both eyes (Primary) 2. Dry eye syndrome of both eyes Continue Systane/Refresh 2-3x daily or as needed 3. Status post LASIK surgery of both eyes Looks great- no need for glasses Warned patient about signs/symptoms of retinal pathology and to call immediately with any sudden increase in flashes/floaters or curtain/veil over vision Follow-up in 1 year or sooner prn I have confirmed and edited as necessary the relevant HPI, ophthalmic history, ROS, and the neuro exam findings as obtained by others. I have seen and examined Olivia Lea. I have discussed the case and the management of this patient's care with the Resident/Fellow, if applicable. I also have reviewed and agree with the assessment and plan as stated above and agree with all of its relevant components. Annie Peraza, OD October 24, 2024 1:41 PM [facility] 10-24-2024 History of Present illness Narrative 1. Meibomian gland dysfunction (MGD) of upper and lower lids of both eyes (Primary) 2. Dry eye syndrome of both eyes Continue Systane/Refresh 2-3x daily or as needed 3. Status post LASIK surgery of both eyes Looks great- no need for glasses Warned patient about signs/symptoms of retinal pathology and to call immediately with any sudden increase in flashes/floaters or curtain/veil over vision Follow-up in 1 year or sooner prn I have confirmed and edited as necessary the relevant HPI, ophthalmic history, ROS, and the neuro exam findings as obtained by others. I have seen and examined Olivia Lea. I have discussed the case and the management of this patient's care with the Resident/Fellow, if applicable. I also have reviewed and agree with the assessment and plan as stated above and agree with all of its relevant components. Annie Peraza, MACARIO October 24, 2024 1:41 PM documented in this encounter [facility] 06-08-2024 Note [facility] Pap Smear Specimen Adequacy June 09, 2024 12:59am Comment . Satisfactory for evaluation. No endocervical component is identified. Comment on above: Satisfactory for kristine luation. No endocervical component is identified. 06-08-2024 Note [facility] Pap Smear QC Review June 09, 2024 12:59am Comment . Jessica Calixto Supervisory Artificial Candy Maker (ASCP) Comment on above: Ansley Ruvalcaba Artificial Candy Maker (ASC) 06-08-2024 Note [facility] Pap Smear Specimen Adequacy June 09, 2024 12:59am Comment . Satisfactory for evaluation. No endocervical component is identified. Comment on above: Satisfactory for kristine luation. No endocervical component is identified. 06-08-2024 Note [facility] Pap Smear QC Review June 09, 2024 12:59am Comment . Jessica Calixto Supervisory Artificial Candy Maker (ASCP) Comment on above: Ansley Ruvalcaba Artificial Candy Maker (ASC) 06-08-2024 Note [facility] Pap Smear Specimen Adequacy June 09, 2024 12:59am Comment . Satisfactory for evaluation. No endocervical component is identified. Comment on above: Satisfactory for kristine luation. No endocervical component is identified. 06-08-2024 Note [facility] Pap Smear QC Review June 09, 2024 12:59am Comment . Jessica Calixto Supervisory Artificial Candy Maker (ASC) Comment on above: Ansley Ruvalcaba Artificial Candy Maker ([facility]) 06-08-2024 Note [facility] Pap Smear QC Review June 09, 2024 12:59am June 15, 2024 12:08pm Comment . Checo Ruvalcabaory Artificial Candy Maker ([facility]) Comment on above: Ansley Ruvalcaba Artificial Candy Maker ([facility]) 06-08-2024 Evaluation note Diagnosis Onset Date Resolution Encounter for routine gynecological examination noneactive June 08, 2024 1:37pm [facility] Work Phone: [phone] 320-411902-24-2025 Radiology Diagnostic study note [facility] Imaging Services [address] [place], [place] [address] Chest PA and Lateral MR#: [id number] Acct: [id number] Name: GENOLIVIA Rep #: [id number] : 1985 F 38 From: Talia Carson MD PCP: Maritza Hood DO Status: REG CLI Study:Chest PA and Lateral Date of Exam: 05/29/24 Exam# [id number] Ordering Dr: Dg Nguyen MD EXAM: XR Chest, 2 Views CLINICAL INDICATION: TECHNIQUE: Frontal and lateral views of the chest. COMPARISON: No relevant prior studies available. FINDINGS: LUNGS AND PLEURAL SPACES: Unremarkable. No consolidation. No pneumothorax. HEART: Unremarkable. No cardiomegaly. MEDIASTINUM: Unremarkable. Normal mediastinal contour. BONES/JOINTS: Unremarkable. No acute fracture. RAD/Chest PA and Lateral IMPRESSION: No acute cardiopulmonary process. Reading Location: [facility] CC: Dr. Dg Nguyen MD; Maritza Hood DO ~ Acute Care Nursing Assistant: Signed [facility]07-16-2024 History of Present illness Narrative* Annie Peraza, OD - 10/19/2023 2:37 PM EDT 1. Meibomian gland dysfunction (MGD) of upper and lower lids of both eyes 2. Dry eye syndrome of both eyes Recommended Systane Complete or Refresh as needed Recommended Lumify daily for redness 4. Status post LASIK surgery of both eyes Okay to use OTC readers (patient notes having issues with accommodation even when younger) +1.25-+1.50 Follow-up as needed or yearly Annie Peraza OD October 19, 2023 2:37 PM documented in this encounterUniversity [facility] Instructions* Patient Instructions* Annie Peraza, MACARIO - 10/19/2023 1:59 PM EDT Use Lumify daily for redness relief (can purchase [id number]) Use Systane Complete or Refresh Relieva as needed Use +1.25-+1.50 [id number] reading glasses for prolonged reading documented in this encounterUniversity Hospitals [facility]02-09-2024 Instructions* Patient Instructions* Bessy Raman APRN.CNP, DNP - 05/14/2023 10:15 AM EST - Valtrex 3 times per day for 7 days - Ibuprofen 600 mg (3 tablets) every 6 hours - Tylenol no more than 4000 mg in 24 hours - Salon pas patches on for 12 hours and off for 12 hours - Triamcinolone apply twice daily for itching. No more than 14 days. - Use either the triamcinolone or lidocaine patches, cannot use both at the same time - If no improvement in the next 3-5 days follow up or sooner if symptoms worsen documented in this encounterUniversity Hospitals [facility]02-09-2024 History of Present illness Narrative* Bessy Raman APRN.CNP, DNP - 05/14/2023 10:01 AM EST Images from the original note were not included. Patient presents with: Rash Rash started 2 days ago Rash is on left ribs 6-7 days ago has stomach bug, fever and weakness. Those symptoms improved over the net few days. Last fever was 5 days ago 3 days ago she developed a prickly sensation and it has spread Pain described as burning and extremely tender to touch. Rash feels likes pins. She gets intermittent pinch. Difficult to take a deep breath She had chicken pox as a child Rash Review of Systems Skin: Positive for rash. Physical Exam Vitals reviewed. Constitutional: Appearance: Normal appearance. HENT: Head: Normocephalic. Eyes: Extraocular Movements: Extraocular movements intact. Cardiovascular: Rate and Rhythm: Normal rate. Pulmonary: Effort: Pulmonary effort is normal. No respiratory distress. Musculoskeletal: Cervical back: Neck supple. Skin: Neurological: Mental Status: She is alert. BP 118/81 Pulse 68 Temp 98.6 Resp 20 Wt 141 lb (64.0kg) SpO2 100% LMP 12/29/2020 ASSESSMENT/PLAN: 1. Herpes zoster without complication - ICD9: 053.9, ICD10: B02.9 - Will treat with valtrex for 7 days - Reviewed pain control strategies - If symptoms are not improving in the next 3 days will follow up - Discussed contagious precautions - She verbalized understanding and agreement with this plan. Bessy Raman APRN.JAREK DENNEY documented in this encounterUniversity Hospitals Ahuja [facility] Center12-28-2022 Instructions* Patient Instructions* Frank Li MD - 04/01/2022 11:00 AM EST Continue: Refresh Optive Advanced solution instill 1 drop 4 times daily Both Eyes. Warm compresses at bedtime Both Eyes. Lid scrubs at bedtime Both Eyes. Estela mask If you have any questions please contact our office at [phone]. After office hours or on the weekend, please call Dr. Li on his cell phone at [phone]. documented in this encounterUniversity Hospitals Ahuja [facility] Center12-28-2022 History of Present illness Narrative* Frank Li MD - 04/01/2022 10:59 AM EST ASSESSMENT/PLAN: 1. Meibomian gland dysfunction (MGD) of upper and lower lids of both eyes - ICD9: 373.00, ICD10: H02.88A, H02.88B (primary diagnosis) 2. Punctate keratitis of both eyes - ICD9: 370.21, ICD10: H16.143 - Resolving Continue: Refresh Optive Advanced solution instill 1 drop 4 times daily Both Eyes. Warm compresses at bedtime Both Eyes. Lid scrubs at bedtime Both Eyes. Recommended Estela mask 3. Status post LASIK surgery of both eyes - ICD9: V45.69, ICD10: Z98.890 - Monitor Frank Li MD I have confirmed and edited as necessary the relevant ophthalmic history, review of systems, surgical history, and ophthalmological examination findings as obtained by the ophthalmic technical staff.I have seen and examined Olivia Lea. I have discussed the examination findings, diagnosis, and treatment options with Olivia Lea and/or her family. I have also reviewed and agree with the assessment and plan as stated above and agree with all its relevant components. I gave the patient the opportunity to ask questions about the findings, diagnosis, and treatment options. documented in this encounterUniversity Hospitals Ahuja [facility] Center11-16-2022 Instructions* Patient Instructions* Frank Li MD - 02/18/2022 4:42 PM EST Continue: Refresh Optive Advanced solution instill 1 drop 4 times daily Both Eyes. Eysuvis solution instill 1 drop daily Both Eyes for 1 week then discontinue. Warm compresses at bedtime Both Eyes. Lid scrubs at bedtime Both Eyes. If you have any questions please contact our office at [phone]. After office hours or on the weekend, please call Dr. Li on his cell phone at [phone]. documented in this encounterUniversity Hospitals Ahuja [facility] Center11-16-2022 History of Present illness Narrative* Frank Li MD - 02/18/2022 4:39 PM EST ASSESSMENT/PLAN: 1. Meibomian gland dysfunction (MGD) of upper and lower lids of both eyes - ICD9: 373.00, ICD10: H02.88A, H02.88B (primary diagnosis) 2. Punctate keratitis of both eyes - ICD9: 370.21, ICD10: H16.143 Continue: Refresh Optive Advanced solution instill 1 drop 4 times daily Both Eyes. Eysuvis solution instill 1 drop daily Both Eyes for 1 week then discontinue. Warm compresses at bedtime Both Eyes. Lid scrubs at bedtime Both Eyes. 3. Status post LASIK surgery of both eyes - ICD9: V45.69, ICD10: Z98.890 Monitor Frank Li MD I have confirmed and edited as necessary the relevant ophthalmic history, review of systems, surgical history, and ophthalmological examination findings as obtained by the ophthalmic technical staff.I have seen and examined Olivia Lea. I have discussed the examination findings, diagnosis, and treatment options with Olivia Lea and/or her family. I have also reviewed and agree with the assessment and plan as stated above and agree with all its relevant components. I gave the patient the opportunity to ask questions about the findings, diagnosis, and treatment options. documented in this encounterUniversity [facility] Instructions* Patient Instructions* Frank Li MD - 01/21/2022 4:24 PM EDT Continue: Refresh Optive Advanced solution instill 1 drop 4 times daily Both Eyes. Eysuvis solution instill 1 drop 2 times daily Both Eyes. Warm compresses at bedtime Both Eyes. Lid scrubs at bedtime Both Eyes. If you have any questions please contact our office at [phone]. After office hours or on the weekend, please call Dr. Li on his cell phone at [phone]. documented in this encounterUniversity Hospitals [facility]10-19-2022 History of Present illness Narrative* Frank Li MD - 01/21/2022 4:21 PM EDT ASSESSMENT/PLAN: 1. Punctate keratitis, bilateral - ICD9: 370.21, ICD10: H16.143 (primary diagnosis) 2. Meibomian gland dysfunction (MGD) of upper and lower lids of both eyes - ICD9: 373.00, ICD10: H02.88A, H02.88B Continue: Refresh Optive Advanced solution instill 1 drop 4 times daily Both Eyes. Eysuvis solution instill 1 drop 2 times daily Both Eyes. Warm compresses at bedtime Both Eyes. Lid scrubs at bedtime Both Eyes. 3. Status post LASIK surgery of both eyes - ICD9: V45.69, ICD10: Z98.890 Monitor I have confirmed and edited as necessary the relevant ophthalmic history, review of systems, surgical history, and ophthalmological examination findings as obtained by the ophthalmic technical staff.I have seen and examined Olivia Lea. I have discussed the examination findings, diagnosis, and treatment options with Olivia Lea and/or her family. I have also reviewed and agree with the assessment and plan as stated above and agree with all its relevant components. I gave the patient the opportunity to ask questions about the findings, diagnosis, and treatment options. Frank Li MD documented in this encounterUniversity Hospitals [facility]10-05-2022 Instructions* Patient Instructions* Frank Li MD - 01/07/2022 3:45 PM EDT Start: Eysuvis solution instill 1 drop 4 times daily Both Eyes. Warm compresses at bedtime Both Eyes. Lid scrubs at bedtime Both Eyes. Continue: Refresh Optive Advanced solution instill 1 drop 4 times daily Both Eyes. If you have any questions please contact our office at [phone]. After office hours or on the weekend, please call Dr. Li on his cell phone at [phone].' documented in this encounterUniversity Hospitals [facility]10-05-2022 History of Present illness Narrative* Frank Li MD - 01/07/2022 3:41 PM EDT ASSESSMENT/PLAN: 1. Dry eye syndrome of both eyes - ICD9: 375.15, ICD10: H04.123 (primary diagnosis) Start: Eysuvis solution instill 1 drop 4 times daily Both Eyes. Warm compresses at bedtime Both Eyes. Lid scrubs at bedtime Both Eyes. Continue: Refresh Optive Advanced solution instill 1 drop 4 times daily Both Eyes. 2. Status post LASIK surgery of both eyes - ICD9: V45.69, ICD10: Z98.890 Monitor 3. Anxiety disorder, unspecified type - ICD9: 300.00, ICD10: F41.9 Continue to monitor with primary care physician. 4. Asthma, unspecified asthma severity, unspecified whether complicated, unspecified whether persistent - ICD9: 493.90, ICD10: J45.909 Continue to monitor with primary care physician. Frank Li MD I have confirmed and edited as necessary the relevant ophthalmic history, review of systems, surgical history, and ophthalmological examination findings as obtained by the ophthalmic technical staff.I have seen and examined Olivia Lea. I have discussed the examination findings, diagnosis, and treatment options with Olivia Lea and/or her family. I have also reviewed and agree with the assessment and plan as stated above and agree with all its relevant components. I gave the patient the opportunity to ask questions about the findings, diagnosis, and treatment options. documented in this encounterUniversity Hospitals [facility]07-19-2018 History of Past illness Narrative* Problem Noted Date Resolved Date Hordeolum internum of left upper eyelid 10/22/19 18 01/21/2022 Myopia of both eyes 04/28/2016 05/21/2016 documented as of this encounter (statuses as of 01/21/2022) [facility] of Past illness Narrative* Problem Noted Date Resolved Date Hordeolum internum of left upper eyelid 10/22/19 18 01/21/2022 Myopia of both eyes 04/28/2016 05/21/2016 documented as of this encounter (statuses as of 02/18/2022) [facility] of [facility] illness Narrative* Problem Noted Date Resolved Date Hordeolum internum of left upper eyelid 10/22/19 18 01/21/2022 Myopia of both eyes 04/28/2016 05/21/2016 documented as of this encounter (statuses as of 04/07/2022) [facility] of Past illness Narrative* Problem Noted Date Diagnosed Date Resolved Date Hordeolum internum of left upper eyelid 10/21/2017 01/21/2022 Myopia of both eyes 04/28/2016 05/21/19 17 documented as of this encounter (statuses as of 05/14/2023) [facility] of Past illness Narrative* Problem Noted Date Resolved Date Myopia of both eyes 04/28/2016 05/21/2016 documented as of this encounter (statuses as of 08/25/2021) [facility] of Past illness Narrative* Problem Noted Date Resolved Date Myopia of both eyes 04/28/2016 05/21/2016 documented as of this encounter (statuses as of 01/07/2022) [facility] note* Diagnosis Chronic cough Cough [facility] Diagnosis Dry eye syndrome of both eyes- Primary Status post LASIK surgery of both eyes Anxiety disorder, unspecified type Asthma, unspecified asthma severity, unspecified whether complicated, unspecified whether persistent documented [facility] this [facility]* Diagnosis Punctate keratitis, bilateral- Primary Meibomian gland dysfunction (MGD) of upper and lower lids of both eyes Status post LASIK surgery of both eyes [facility]* Diagnosis Meibomian gland dysfunction (MGD) of upper and lower lids of both eyes- Primary Punctate keratitis of both eyes Punctate keratitis Status post LASIK surgery of both eyes [facility] Diagnosis Meibomian gland dysfunction (MGD) of upper and lower lids of both eyes- Primary Punctate keratitis of both eyes Punctate keratitis Status post LASIK surgery of both eyes documented [facility] this encounter [facility] noteNo assessment information availableWOhioHealth O'[facility]len[facility] Work Phone: Evaluation note* Diagnosis Herpes zoster without complication- Primary Herpes zoster without mention of complication [facility]* Diagnosis Meibomian gland dysfunction (MGD) of upper and lower lids of both eyes- Primary Dry eye syndrome of both eyes Status post LASIK surgery of both eyes documented in this encounter [facility]* Diagnosis Meibomian gland dysfunction (MGD) of upper and lower lids of both eyes- Primary Dry eye syndrome of both eyes Status post LASIK surgery of both eyes documented in this encounter [facility] CenterHistory of Present illness Narrative* EP. Here for CPE. No Breast exam or Pap. States onset of cough and cold. * Olivia is a 35 year old female presenting today for an annual physical exam visit. * -Has developed a cold and cough. * -Cough is dry and onsets with even just tickle in her throat. * -Causes dyspnea when the coughing onsets * -Had a chronic cough back in 2019 and was prescribed Symbicort (1 puff a day), which she has been slowly weaning off of. She is still currently taking it. * -Also takes takes Amitriptyline 10 mg , 2 tablets daily. * -Has been seeing a therapist for a while and was diagnosed with depression. * -Inquires about ADHD evaluation. SHe is very forgetful, stumbles over words, and has insomnia. Has done some research. * -At re-evaluation for depression with therapist she brought up concern for ADHD. A referral was supposed to go to neuropsychologist, Dr. Gorge Aguilar in [place]. * -Noticed since July she has not been as scatter brained but very overwhelmed. Sold and bought a house and is getting in September. Extremely urgent with things. Has not felt like everything is racing like crazy. * -Does feel her depression is still present but not as heavy as it was. * -Got off Nexplanon in February and her periods have been regular, it has also helped with her depression being off of it. [facility] Work Phone: Reason for referral (narrative)No reason for referral information availableWOhioHealth O'[facility] Work Phone: Summary Purpose Family History No Family History Records Found Grandparent Name Dates Details Family history of hypertensi on(V17.49, Z82.49) Status:Active Family history of hyperchole sterolemia(V18.19, Z83.42) Status:Active Family history of arthritis( V17.7, Z82.61) Status:Active Family history of diabetes m ellitus(V18.0, Z83.3) Status:Active Family history of cardiac di sorder(V17.49, Z82.49) Status:Active Mother Name Dates Details Family history of hypertensi on(V17.49, Z82.49) Status:Active Family history of Environmen mary kay allergies(V15.09, Z91.09) Status:Active Family history of malignant neoplasm of breast(V16.3, Z80.3) Status:Active Father Name Dates Details Family history of hyperchole sterolemia(V18.19, Z83.42) Status:Active Family history of skin cance r(V16.8, Z80.8) Status:Active Grandparent Name Dates Details Family history of hypertensi on(V17.49, Z82.49) Status:Active Family history of hyperchole sterolemia(V18.19, Z83.42) Status:Active Family history of arthritis( V17.7, Z82.61) Status:Active Family history of diabetes m ellitus(V18.0, Z83.3) Status:Active Family history of cardiac di sorder(V17.49, Z82.49) Status:Active Mother Name Dates Details Family history of Environmen mary kay allergies(V15.09, Z91.09) Status:Active Family history of malignant neoplasm of breast(V16.3, Z80.3) Status:Active Family history of hypertensi on(V17.49, Z82.49) Status:Active Father Name Dates Details Family history of hyperchole sterolemia(V18.19, Z83.42) Status:Active Family history of skin cance r(V16.8, Z80.8) Status:Active Grandparent Name Dates Details Family history of hypertensi on(V17.49, Z82.49) Status:Active Family history of hyperchole sterolemia(V18.19, Z83.42) Status:Active Family history of arthritis( V17.7, Z82.61) Status:Active Family history of diabetes m ellitus(V18.0, Z83.3) Status:Active Family history of cardiac di sorder(V17.49, Z82.49) Status:Active Mother Name Dates Details Family history of Environmen mary kay allergies(V15.09, Z91.09) Status:Active Family history of malignant neoplasm of breast(V16.3, Z80.3) Status:Active Family history of hypertensi on(V17.49, Z82.49) Status:Active Father Name Dates Details Family history of hyperchole sterolemia(V18.19, Z83.42) Status:Active Family history of skin cance r(V16.8, Z80.8) Status:Active Grandparent Name Dates Details Family history of hypertensi on(V17.49, Z82.49) Status:Active Family history of hyperchole sterolemia(V18.19, Z83.42) Status:Active Family history of arthritis( V17.7, Z82.61) Status:Active Family history of diabetes m ellitus(V18.0, Z83.3) Status:Active Family history of cardiac di sorder(V17.49, Z82.49) Status:Active Mother Name Dates Details Family history of Environmen mary kay allergies(V15.09, Z91.09) Status:Active Family history of malignant neoplasm of breast(V16.3, Z80.3) Status:Active Family history of hypertensi on(V17.49, Z82.49) Status:Active Father Name Dates Details Family history of hyperchole sterolemia(V18.19, Z83.42) Status:Active Family history of skin cance r(V16.8, Z80.8) Status:Active Unknown Family Member Name Dates Details Environmental allergies: Mot her Status:Active Family history of malignant neoplasm of breast: Mother(V16.3, Z80.3) Status:Active Family history of hypertensi on: Mother, Grandparent(V17.49, Z82.49) Status:Active Family history of hyperchole sterolemia: Father, Grandparent(V18.19, Z83.42) Status:Active Family history of arthritis: Grandparent(V17.7, Z82.61) Status:Active Family history of diabetes m ellitus: Grandparent(V18.0, Z83.3) Status:Active Family history of cardiac di sorder: Grandparent(V17.49, Z82.49) Status:Active Family history of skin cance r: Father(V16.8, Z80.8) Status:Active Unknown Family Member Name Dates Details Environmental allergies: Mot her Status:Active Family history of malignant neoplasm of breast: Mother(V16.3, Z80.3) Status:Active Family history of hypertensi on: Mother, Grandparent(V17.49, Z82.49) Status:Active Family history of hyperchole sterolemia: Father, Grandparent(V18.19, Z83.42) Status:Active Family history of arthritis: Grandparent(V17.7, Z82.61) Status:Active Family history of diabetes m ellitus: Grandparent(V18.0, Z83.3) Status:Active Family history of cardiac di sorder: Grandparent(V17.49, Z82.49) Status:Active Family history of skin cance r: Father(V16.8, Z80.8) Status:Active Unknown Family Member Name Dates Details Environmental allergies: Mot her Status:Active Family history of malignant neoplasm of breast: Mother(V16.3, Z80.3) Status:Active Family history of hypertensi on: Mother, Grandparent(V17.49, Z82.49) Status:Active Family history of hyperchole sterolemia: Father, Grandparent(V18.19, Z83.42) Status:Active Family history of arthritis: Grandparent(V17.7, Z82.61) Status:Active Family history of diabetes m ellitus: Grandparent(V18.0, Z83.3) Status:Active Family history of cardiac di sorder: Grandparent(V17.49, Z82.49) Status:Active Family history of skin cance r: Father(V16.8, Z80.8) Status:Active Relationship Condition Age at Onset Recorded Date/T linsey mother Malignant neoplasm of breast 48 Advance Directives No Advanced Directives Records FoundNo Advanced Directives Records FoundNo Advanced Directives Records FoundNo Advanced Directives Records FoundNo Advanced Directives Records FoundNo Advanced Directives Records Found Chief Complaint and Reason for Visit Chief Complaint EORDERS Chief Complaint Admit Date CHECT PA & LAT XRAY May 29, 2024 11:40am Annual (ELECTRICIAN BUS) June 08, 2024 1:37 pm Reason for Visit Admit Date Encounter for routine gynecological exam ination June 08, 2024 1:37pm Chief Complaint Admit Date CHECT PA & LAT XRAY May 29, 2024 11:40am Annual (ELECTRICIAN BUS) June 08, 2024 1:37 pm NO DRAW FEE June 21, 2024 4:2 6pm Chief Complaint Admit Date CHECT PA & LAT XRAY May 29, 2024 11:40am Annual (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 BUS) June 08, 2024 1:37 pm NO DRAW FEE June 21, 2024 4:2 6pm Breast Cancer Screening September 04, 2024 1 2:24pm Additional Source Comments INFORMATION SOURCE (unrecogn ized section and content) DATE CREATED AUTHOR 03/14/2018 [facility] DATE CREATED AUTHOR AUTHOR'S ORGANIZ ATION 12/15/2020 [facility] DATE CREATED AUTHOR AUTHOR'S ORGANIZ ATION 08/26/2021 [facility] DATE CREATED AUTHOR AUTHOR'S ORGANIZ ATION 11/15/2021 [facility] DATE CREATED AUTHOR AUTHOR'S ORGANIZ ATION 09/09/2024 [facility] DATE CREATED AUTHOR AUTHOR'S ORGANIZ ATION 10/26/2024 [facility] Source Comments (unrecognize d section and content) In the event this informatio n is protected by the Federal Confidentiality of Alcohol and Drug Abuse Patient Records regulations: The Federal rules restrict any use of the information to criminally investigate or prosecute any alcohol or drug abuse patient.[facility] CenterIn the event this information is protected by the Federal Confidentiality of Alcohol and Drug Abuse Patient Records regulations: The Federal rules restrict any use of the information to criminally investigate or prosecute any alcohol or drug abuse patient.[facility] CenterIn the event this information is protected by the Federal Confidentiality of Alcohol and Drug Abuse Patient Records regulations: The Federal rules restrict any use of the information to criminally investigate or prosecute any alcohol or drug abuse patient.[facility] CenterIn the event this information is protected by the Federal Confidentiality of Alcohol and Drug Abuse Patient Records regulations: The Federal rules restrict any use of the information to criminally investigate or prosecute any alcohol or drug abuse patient.[facility] CenterIn the event this information is protected by the Federal Confidentiality of Alcohol and Drug Abuse Patient Records regulations: The Federal rules restrict any use of the information to criminally investigate or prosecute any alcohol or drug abuse patient.[facility] CenterIn the event this information is protected by the Federal Confidentiality of Alcohol and Drug Abuse Patient Records regulations: The Federal rules restrict any use of the information to criminally investigate or prosecute any alcohol or drug abuse patient.[facility] CenterIn the event this information is protected by the Federal Confidentiality of Alcohol and Drug Abuse Patient Records regulations: The Federal rules restrict any use of the information to criminally investigate or prosecute any alcohol or drug abuse patient.[facility] CenterIn the event this information is protected by the Federal Confidentiality of Alcohol and Drug Abuse Patient Records regulations: The Federal rules restrict any use of the information to criminally investigate or prosecute any alcohol or drug abuse patient.[facility] Reason for Visit (unrecogniz ed section and content) Reason Comments Refill Request Reason Comments Dry Eye(s) Both Eyes Reason Comments Punctate Keratits Both Eyes Reason Comments Rash Reason Comments Yearly Exam Care Teams (unrecognized sec tion and content) Industrial Cafeteria Manager Relationship Specialty Start Date End Date Nuria Dickinson PCP - General Family Practice 04/28/16 Industrial Cafeteria Manager Relationship Specialty Start Date End Date Nuria Dickinson PCP - General Family Medicine 04/28/16 Industrial Cafeteria Manager Relationship Specialty Start Date End Date Tino Hood, DO [address] [facility] [address] [place], [place] [id number] PCP - General Family Medicine 01/21/22 Industrial Cafeteria Manager Relationship Specialty Start Date End Date Tino Hood, [address] [facility] [address] [place] [address] PCP - General Family Medicine 01/21/22 Industrial Cafeteria Manager Relationship Specialty Start Date End Date Tino Hood DO [address] [facility] [address] [place], [place] [id number] PCP - General Family Medicine 01/21/22 Team Status: Active Member Role Status Dates Dr. Mary Tellez MD Family Provider Active Tino Hood DO Primary Care Provider Active Team Status: Inactive Member Role Status Dates Tino Hood DO Primary Care Provi haley, Attending Provider, Referring Provider Active Industrial Cafeteria Manager Relationship Specialty Start Date End Date Tino Hood DO [address] [facility] [address] [place] [address] PCP - [facility] 01/21/22 Industrial Cafeteria Manager Relationship Specialty Start Date End Date Tino Hood DO [address] [facility] [address] [place] [address] PCP - [facility] 01/21/22 Team Status: Active Member Role Status Dates Dr. Mary Tellez MD Family Provider Active Maritza MARTÍNEZ, DO Primary Care Provider Active Team Status: Inactive Member Role Status Dates Maritza MARTÍNEZ, DO Primary Care Provider Active Start: May 29, 2024 End: May 29, 2024 Dr. Dg Nguyen MD Attending Provider Active Start: May 29, 2024 End: May 29, 2024 Dr. Dg Nguyen MD Referring Provider Active Start: May 29, 2024 End: May 29, 2024 Team Status: Inactive Member Role Status Dates Maritza CATHERINEC, DO Primary Care Provider Active Start: June 08, 2024 End: June 08, 2024 Maritza MARTÍNEZ, DO Referring Provider Active Start: June 08, 2024 End: June 08, 2024 Isabelle Frias CNM Attending Provider Active S tart: June 08, 2024 End: June 08, 2024 Team Status: Active Member Role Status Dates Maritza CATHERINEC, DO Primary Care Provider Active Start: June 08, 2024 Isabelle Frias CNM Attending Provider Active S tart: June 08, 2024 Isabelle Frias CNM Referring Provider Active S tart: June 08, 2024 Team Status: Inactive Member Role Status Dates Maritza MARTÍNEZ, DO Primary Care Provider Active Start: June 08, 2024 End: June 08, 2024 Isabelle Frias CNM Attending Provider Active S tart: June 08, 2024 End: June 08, 2024 Isabelle Frias CNM Referring Provider Active S tart: June 08, 2024 End: June 08, 2024 Team Status: Active Member Role Status Dates Maritza Hood VSC, DO Primary Care Provider Active Start: June 20, 2024 Dr. Dg Nguyen MD Attending Provider Active Start: June 20, 2024 Dr. Dg Nguyen MD Referring Provider Active Start: June 20, 2024 Team Status: Active Member Role Status Dates Maritza Hood VSC, DO Primary Care Provider Active Team Status: Inactive Member Role Status Dates Maritza Hood VSC, DO Primary Care Provider Active Start: June 20, 2024 End: June 20, 2024 Dr. Dg Nguyen MD Attending Provider Active Start: June 20, 2024 End: June 20, 2024 Dr. Dg Nguyen MD Referring Provider Active Start: June 20, 2024 End: June 20, 2024 Team Status: Active Member Role Status Dates Maritza Hood VSC, DO Primary Care Provider Active Start: June 21, 2024 Dr. Dg Nguyen MD Attending Provider Active Start: June 21, 2024 Dr. Dg Nguyen MD Referring Provider Active Start: June 21, 2024 Team Status: Inactive Member Role Status Dates Maritza Peterer VSC, DO Primary Care Provider Active Start: June 21, 2024 End: June 21, 2024 Dr. Dg Nguyen MD Attending Provider Active Start: June 21, 2024 End: June 21, 2024 Dr. Dg Nguyen MD Referring Provider Active Start: June 21, 2024 End: June 21, 2024 Team Status: Inactive Member Role Status Dates Maritza Hood VSC, DO Primary Care Provider Active Start: September 04, 2024 End: September 04, 2024 Isabelle Frias CNM Attending Provider Active S tart: September 04, 2024 End: September 04, 2024 Isabelle Frias CNM Referring Provider Active S tart: September 04, 2024 End: September 04, 2024 Industrial Cafeteria Manager Relationship Specialty Start Date End Date Tino Hood SallyDO PCP - General Family Medicine 01/21/22 Goals (unrecognized section and content) Goals may be documented in a n alternate sectionGoals may be documented in an alternate sectionGoals may be documented in an alternate sectionGoals may be documented in an alternate sectionGoals may be documented in an alternate sectionGoals may be documented in an alternate section FOR RECORDS PERTAINING TO PATIENTS WHO ARE OR HAVE BEEN ENROLLED IN A CHEMICAL DEPENDENCY/SUBSTANCEABUSE PROGRAM, SOME INFORMATION MAY BE OMITTED. This clinical summary was aggregated from multiple sources. Caution should be exercised in using it in the provision of clinical care. This summary normalizes information from multiple sources, and as a consequence, information in this document may materially change the coding, format and clinical context of patient data. In addition, data may be omitted in some cases. CLINICAL DECISIONS SHOULD BE BASED ON THE PRIMARY CLINICAL RECORDS. [facility] [employer] [facility]. provides no warranty or guarantee of the accuracy or completeness of information in this document.
[2024-11-25 11:36] LABS: Hematocrit 43.9 % (37-47); Hemoglobin 14.7 g/dL (12.0-15.0); Immature Granulocytes Count 0.020 X10^3/uL (0.0-0.0); Mean Corp Hgb Conc 33.5 g/dL (32-36); Mean Corpuscular Volume 92.8 fL (81-99); Mean Platelet Vol. 10.9 fl (6.2-12.0); NRBC Flagged by Analyzer 0 % (0-5); Platelet Count 236 K/mm3 (150-450); RBC Distribution Width CV 12.9 % (11.6-14.6); RBC Distribution Width SD 44.2 fl (35.1-43.9); Red Blood Count 4.73 M/mm3 (4.2-5.4); White Blood Count 8.2 K/mm3 (4.4-11.0)
== END | disposition home or self-care (01) ==
LOC: LAB 10:15
PROVIDERS: PCP Family Medicine; Referring Provider Internal Medicine Pulmonary Disease; Visit Provider Internal Medicine Pulmonary Disease
DX: J45.30 Mild persistent asthma, uncomplicated (principal)
CPT/HCPCS: 36415; 85025

== ENCOUNTER → 2025-02-22 | Outpatient (CLI) | payer BC, SELFPAY ==
[2025-02-22 12:17] LABS: Hematocrit 44.8 % (37-47); Hemoglobin 14.5 g/dL (12.0-15.0); Immature Granulocytes Count 0.030 X10^3/uL (0.0-0.0); Mean Corp Hgb Conc 32.4 g/dL (32-36); Mean Corpuscular Volume 94.1 fL (81-99); Mean Platelet Vol. 10.9 fl (6.2-12.0); NRBC Flagged by Analyzer 0 % (0-5); Platelet Count 275 K/mm3 (150-450); RBC Distribution Width CV 12.8 % (11.6-14.6); RBC Distribution Width SD 44.5 fl (35.1-43.9); Red Blood Count 4.76 M/mm3 (4.2-5.4); White Blood Count 9.7 K/mm3 (4.4-11.0)
[2025-02-22 13:05] LABS: AST(SGOT) 27 U/L (<=31); Alanine Aminotransfer ALT/SGPT 28 U/L (<=34); Albumin, Serum 4.5 g/dL (3.5-5.0); Alkaline Phosphatase 58 U/L (35-104); Anion Gap 10 (5-15); BUN 11 mg/dL (4-19); BUN/Creat Ratio 13.1 RATIO (10-20); CORTISOL AM 3.37 ug/dL (6.02-18.40); CPK Total, Creatine Kinase 61 U/L (24-195); Calcium,Total 9.3 mg/dL (7.6-11.0); Carbon Dioxide 26.4 mmol/L (21.0-32.0); Chloride 103 mmol/L (98-108); Cholesterol 189 mg/dL (<=200); Ferritin 76 ng/mL (22-378); Follicle Stimulating Hormone 8.7 mIU/mL; Globulin 3.5 g/dL (2.2-4.2); Glucose 85 mg/dL (70-99); Low Density Lipoprotein Calc. 111 mg/dL; Magnesium 2.3 mg/dL (1.5-2.2); Potassium 4.5 mmol/L (3.3-5.1); Triglycerides 70 mg/dL; Very Low Density Lipoprotein 14 mg/dL (5-40); Vitamin B12 642 pg/mL (180-914); Vitamin D,25 Hydroxy 19.9 ng/mL (30-100); cholesterol:hdl ratio screen 2.91
[2025-02-23 04:07] LABS: PROGESTERONE 0.4 ng/mL (.)
[2025-02-26 13:08] LABS: PROLACTIN 17.1 ng/mL (4.8-33.4); Testosterone, % Free 2.71 % (0.50-2.80); Testosterone, Free <.08 ng/dL (0.10-0.85)
== END | disposition home or self-care (01) ==
LOC: VSLAB 09:12
PROVIDERS: PCP Family Medicine; Referring Provider Family Medicine; Visit Provider Family Medicine
DX: Z00.00 Encounter for general adult medical examination without abnormal findings (principal); R25.2 Cramp and spasm; R51.9 Headache, unspecified
CPT/HCPCS: 36415; 80053; 80061; 82306; 82533; 82550; 82607; 82670; 82728; 83001; 83002; 83036; 83735; 84144; 84146; 84402; 84403; 84443; 85025

== ENCOUNTER → 2025-03-24 | Outpatient (CLI) | payer BC, SELFPAY ==
--- OUTSIDE RECORDS SUMMARY | 2025-03-24 08:06 | XMS RPT_ITS | CCD ---
Author Organization [facility] Care Team Providers Care Land Title Examiner Name Role Phone MEHLE, LUIS Unavailable Unavailable MEHLE, LUIS Unavailable Unavailable ALOK, KARIN Unavailable Unavailable MEHLE, LUIS Unavailable Unavailable ALOK, KARIN Unavailable Unavailable MEHLE, LUIS Unavailable Unavailable ALOK, KARIN Unavailable Unavailable Alok, Karin Unavailable Unavailable Alok, Karin Unavailable Unavailable Alok, Karin Unavailable Unavailable Alok, Karin Unavailable Unavailable Unavailable AlokNuriaKarin Primary Care Provider AlokNuriaKarin Primary Care Provider Tino Hood DO Primary Care Provider [phone] Tino Hood DO Primary Care Provider Tino Hood DO Primary Care Provider Tino Hood DO Primary Care Provider Maritza Hood DO Primary Care Provider Dr. Dg Nguyen MD, V Attending Provider Dr. Dg Nguyen MD, V Referring Provider Maritza Hood DO Referring Provider Isabelle Frias CNM Attending Provider Isabelle Frias CNM Referring Provider Maritza Hood DO Primary Care Provider Dr. Dg Nguyen MD, V Attending Provider Dr. Dg Nguyen MD, V Referring Provider Maritza Hood DO Referring Provider Rodriguez REDDY, Isabelle Attending Provider Rodriguez REDDY, Isabelle Referring Provider SanaTino ram DO Primary Care Provider ANNIE PERAZA Attending Unavailable TINO HOOD SALLY Primary Care Unavailabl e Sanaleanna INFANTE, Maritza Primary Care Provider Rodriguez REDDY, Isabelle Attending Provider [phone] Rodriguez REDDY, Isabelle Referring Provider Wendy CUBA, Dr. Dg Wray Attending Provider Dr. Dg Nguyen MD, V Referring Provider [phone] Sana, Maritza Primary Care Unavailable Sibilia, Dg V Referring Unavailable Sibilia, Dg Wray Attending Unavailable Sana, Maritza Primary Care Unavailable Isabelle Frias Attending Unavailable Isabelle Frias Referring Unavailable Sana, Maritza Primary Care Unavailable SibiliaDg V Attending Unavailable Sibilia, Dg Wray Referring Unavailable Sana, Maritza Primary Care Unavailable Sibilia, Dg Wray Attending Unavailable Sibilia, Dg Wray Referring Unavailable Isabelle Frias Attending Unavailable Sana, Maritza Primary Care Unavailable Sana, Maritza Referring Unavailable Isabelle Frias Attending Unavailable Isabelle Frias Referring Unavailable Sana, Maritza Primary Care Unavailable Sana, Maritza Primary Care Unavailable SibiliaDg V Attending Unavailable Sibilia, Dg V Referring Unavailable Allergies Allergy Classification Reported Allergen(s) Allergy Type Date of Onset Reaction(s) Facility (15 sources) cefdinir; Translations: [CEFDINIR] Drug Allergy 8 Diarrhea [facility] (2 sources) Mold Extract; Translations: [MOLD] Drug Allergy 5 Cough, Itching [facility] (2 sources) Seasonal allergy; Translations: [SEASONAL ALLERGIES] Propensity to adverse reactions 5 Cough, Itching [facility] (1 source) cefdinir Drug Allergy 5 [facility] Repository Medications Current Medications Medication Drug Class(es) Dates Sig (Normalized) Sig (Original) [id number] 200 actuat albuterol 0.09 mg/actuat metered dose [...] 31-Mar-2018 Active 18 GM Inhaler Beclomethasone Dipropionate (7 sources) Corticosteroid Start: 06-08-2024 take 40 ug [...] the event of a Fluress shortage, administer [place]-Fluor 1 drop into both eyes as directed [...] hydrochloride 200 mg extended release oral tablet (13 sources) Aminoketone Start: take 1 tablet by [...] omeprazole 40 mg delayed release oral capsule (6 sources) Proton Pump Inhibitor Start: take 1 [...] on above: Take 1 tablet by judi th three times a day for 7 days. [...] bronchitis; Translations: [Acute bronchitis] Episodic Anxiety disorders (7 sources) Anxiety disorder; Translations: [Anxiety disorder, unspecified] Chronic Asthma (20 sources) Cough variant asthma; Translations: [Cough variant asthma] Onset: 11-29-2019 11-29-2019 Chronic Attention-deficit, conduct, and disruptive behavior disorders (6 sources) Attention deficit hyperactivity disorder; Translations: [Attention-deficit [...] Translations: [Absence of menstruation] Chronic Mood disorders (6 sources) Depressive disorder; Translations: [Depression] 05-28-2023 Chronic [...] (7 sources) Cough; Translations: [Cough] Episodic Other nutritional; endocrine; and metabolic disorders [...] inoculation against influenza] Episodic Residual codes; unclassified (6 sources) Family history of breast cancer; Translations: [...] Problem Classification Problem Date Documented Date Episodic/Chronic Blindness and vision defects (10 sources) Myopia; [...] [Shortness of breath] Onset: 06-30-2024 Episodic Other lower respiratory disease (1 source) Dyspnea, unspecified; Translations: [Dyspnea, unspecified] Onset: 06-08-2024 Episodic Residual codes; unclassified (1 source) Other specified postprocedural states; Translations: [Status post LASIK surgery of both eyes] Onset: 05-22-2016 Episodic Residual codes; unclassified (1 source) Family history of malignant neoplasm of breast; Translations: [Family history of malignant neoplasm of breast] Onset: 06-08-2024 Episodic Unclassified (12 sources) Patient encounter status; Translations: [Screening cholesterol level] NEGATED: Highlighted row has not occurred!Residual codes; unclassified (20 sources) Disease Episodic Results Test Name Value Interpretation Reference Range Facility Absolute lymphocyte countOrd ered By: Dg Nguyen on 11-25-2024 Lymphocytes Auto (Unsp spec) [#/Vol] 2.11 10*3/uL 0.83-4.51 [facility] Absolute neutrophil countOrd ered By: Dg Nguyen on 11-25-2024 Neutrophils (Bld) [#/Vol] 5.4 10*3/uL 2.0-7.7 [facility] Automated lymphocyte count a s percentage of total leukocytesOrdered By: Dg Nguyen on 11-25-2024 Lymphocytes/100 WBC Auto (Unsp spec) 25.6 % 19-41 [facility] Basophil percentageOrdered B y: Dg Nguyen on 11-25-2024 Basophils/100 WBC (Bld) 0.6 % 0-1 [facility] CBC W/Diff, Automatedon 11-04 Absolute Lymph 2.11 X10 3/uL Normal 0.83-4.51 [facility] Comment on above: Performed By: #### L 100.0100 #### [facility] Laboratory [address] [place], [address] Absolute Neut 5.4 X10 3/uL Normal 2.0-7.7 [facility] Comment on above: Performed By: #### L 100.0100 #### [facility] Laboratory [address] [place], [address] Basophils/100 WBC (Bld) 0.6 % Normal 0-1 [facility] Comment on above: Performed By: #### L 100.0100 #### [facility] Laboratory [address] [place], [address] Eosinophils/100 WBC (Bld) 0.6 % Normal 0-5 [facility] Comment on above: Performed By: #### L 100.0100 #### [facility] Laboratory [address] [place], [address] Erythrocyte distribution width (RBC) [Ratio] 12.9 % Normal 11.6-14.6 [facility] Comment on above: Performed By: #### L 100.0100 #### [facility] Laboratory [address] [place], [address] Hematocrit (Bld) [Volume fraction] 43.9 % Normal 37-47 [facility] Comment on above: Performed By: #### L 100.0100 #### [facility] Laboratory [address] [place], [address] Hemoglobin (Bld) [Mass/Vol] 14.7 g/dL Normal 12.0-15. 0 [facility] Comment on above: Performed By: #### L 100.0100 #### [facility] Laboratory [address] [place], [address] IG% 0.200 Normal 0.0-0.9 [facility] Comment on above: Result Comment: IG% - Immature Granulocytes (promyelocytes, myelocytes and metamyelocytes) > 1% indicates that a LEFT SHIFT is Present. Performed By: #### L 100.0100 #### [facility] Laboratory [address] [place], [place] [address]. [place], [address] Lymphocytes/100 WBC (Bld) 25.6 % Normal 19-41 [facility] Comment on above: Performed By: #### L 100.0100 #### [facility] Laboratory [address] [place], [address] MCH (RBC) [Entitic mass] 31.1 pg Normal 27.0-32.0 [facility] Comment on above: Performed By: #### L 100.0100 #### [facility] Laboratory [address] [place], [address] MCHC (RBC) [Mass/Vol] 33.5 g/dL Normal 32-36 [facility] Comment on above: Performed By: #### L 100.0100 #### [facility] Laboratory [address] [place], [address] MCV (RBC) [Entitic vol] 92.8 fL Normal 81-99 [facility] Comment on above: Performed By: #### L 100.0100 #### [facility] Laboratory [address] [place], [address] Monocytes/100 WBC (Bld) 7.8 % Normal 0-10 [facility] Comment on above: Performed By: #### L 100.0100 #### [facility] Laboratory [address] [place], [address] Neutrophils/100 WBC (Bld) 65.2 % Normal 47-70 [facility] Comment on above: Performed By: #### L 100.0100 #### [facility] Laboratory [address] [place], [address] Nucleated RBC (Bld) [#/Vol] 0 10*3/uL Normal 0-5 [facility] Comment on above: Performed By: #### L 100.0100 #### [facility] Laboratory [address] [place], [address] Platelet mean volume (Bld) [Entitic vol] 10.9 fL Normal 6.2-12.0 [facility] Comment on above: Performed By: #### L 100.0100 #### [facility] Laboratory [address] [place], [address] Platelets (Bld) [#/Vol] 236 10*3/uL Normal 150-450 [facility] Comment on above: Performed By: #### L 100.0100 #### [facility] Laboratory [address] [place], [address] RBC (Bld) [#/Vol] 4.73 10*6/uL Normal 4.2-5.4 [facility] Comment on above: Performed By: #### L 100.0100 #### [facility] Laboratory [address] [place], [address] RDW SD 44.2 fl High 35.1-43.9 [facility] Comment on above: Performed By: #### L 100.0100 #### [facility] Laboratory [address] [place], [address] WBC (Bld) [#/Vol] 8.2 10*3/uL Normal 4.4-11.0 [facility] Comment on above: Performed By: #### L 100.0100 #### [facility] Laboratory [place], [address] Eosinophil percentageOrdered By: Dg Nguyen on 11-25-2024 Eosinophils/100 WBC (Bld) 0.6 % 0-5 [facility] Erythrocyte distribution wid th ratioOrdered By: Dg Nguyen on 11-25-2024 Erythrocyte distribution width (RBC) [Ratio] 12.9 % 11.6-14.6 [facility] Erythrocyte distribution wid th standard deviationOrdered By: Dg Nguyen on 11-25-2024 Erythrocyte distribution width (RBC) [Ratio] 44.2 fl High 35.1-43.9 [facility] Hematocrit Auto (Bld) [Volum e fraction]Ordered By: Dg Nguyen on 11-25-2024 Hematocrit (Bld) [Volume fraction] 43.9 % 37-47 [facility] Hemoglobin measurementOrdere d By: Dg Nguyen on 11-25-2024 Hemoglobin (Bld) [Mass/Vol] 14.7 g/dL 12.0-15. 0 [facility] Immature granulocytes/100 WB C Auto (Bld)Ordered By: Dg Nguyen on 11-25-2024 Immature granulocytes/100 WBC (Bld) 0.200 % 0.0-0.9 [facility] Comment on above: IG% - Immature Granu locytes (promyelocytes, myelocytes and metamyelocytes) > 1% indicates that a LEFT SHIFT is Present. MCV (mean corpuscular volume ) determinationOrdered By: Dg Nguyen on 11-25-2024 MCV (RBC) [Entitic vol] 92.8 fL 81-99 [facility] Mean corpuscular hemoglobin (MCH) determinationOrdered By: Dg Nguyen on 11-25-2024 MCH (RBC) [Entitic mass] 31.1 pg 27.0-32.0 [facility] Mean corpuscular hemoglobin concentration (MCHC) determinationOrdered By: Dg Nguyen on 11-25-2024 MCHC (RBC) [Mass/Vol] 33.5 g/dL 32-36 [facility] Mean platelet volume determi nationOrdered By: Dg Nguyen on 11-25-2024 Platelet mean volume (Bld) [Entitic vol] 10.9 fL 6.2-12.0 [facility] Monocyte percentageOrdered B y: Dg Tomlinshadi on 11-25-2024 Monocytes/100 WBC (Bld) 7.8 % 0-10 [facility] Neutrophil percentageOrdered By: Dg Nguyen on 11-25-2024 Neutrophils/100 WBC (Bld) 65.2 % 47-70 [facility] Nucleated red blood cell per centageOrdered By: Dg Nguyen on 11-25-2024 Nucleated RBC/100 WBC (Bld) [Ratio] 0 % 0-5 [facility] Platelet countOrdered By: Brenna Nguyen on 11-25-2024 Platelets (Bld) [#/Vol] 236 10*3/uL 150-450 [facility] RBC Auto (Bld) [#/Vol]Ordere d By: Dg Nguyen on 11-25-2024 RBC (Bld) [#/Vol] 4.73 10*6/uL 4.2-5.4 [facility] White blood cell (WBC) count Ordered By: Dg Nguyen on 11-25-2024 WBC (Bld) [#/Vol] 8.2 10*3/uL 4.4-11.0 [facility] Breast imaging reportOrdered By: Beverly Lopez on 09-04-2024 Study report [facility] Imaging Services [address] [place], [place] [address] SCRN MAMM (CAD)W/CRISTINA BILAT MR#: [id number] Acct: [id number] Name: OLIVIA LEA Rep #: [id number] : 1985 F 38 From: Matthew Lopez DO PCP: Maritza Hood DO Status: REG CLI Study:SCRN MAMM (CAD)W/CRISTINA BILAT Date of Exa m: 09/04/24 Exam# [id number] Ordering Dr: Isabelle Frias CNM EXAM: SCRN [...] be mailed to the patient. Reading Location: [facility] CC: BARRY Frias; Maritza Hood DO ~ Wrap Turner: Signed [facility] SCRN MAMM (CAD)W/CRISTINA BILATo n 09-04-2024 SCRN MAMM (CAD)W/CRISTINA BILAT [facility] Imaging Services [address] [place] [id number] SCRN MAMM (CAD)W/CRISTINA BILAT MR#: [id number] Acct: [id number] Name: OLIVIA LEA Rep #: [id number] : 1985 F 38 From: Beverly Beltran PCP: Maritza Hood DO Status: REG CLI Study: SCRN MAMM (CAD)W/CRISTINA BILAT Date of Exam: 05/30 Exam# [id number] Ordering Dr: Isabelle Frias CNM EXAM: SCRN [...] be mailed to the patient. Reading Location: [facility] CC: BARRY Frias; Maritza Hood DO Wrap Turner: Signed Normal [facility] Misc.on 07-20-2024 [facility]. COMMENT Normal . [facility] Comment on above: Order Comment: [id number] 9ANTI V3 RED POUR RF Result Comment: Test Ordered: [id number] Anti-U3 DIESEL ENGINE FITTER (Fibrillarin)(RDL) Test(s) 441992-Ebee-E7 DIESEL ENGINE FITTER (Fibrillarin)(RDL) was developed and its performance characteristics determined by [facility]. It has not been cleared or approved by the Food and Drug Administration. Anti-U3 DIESEL ENGINE FITTER (Fibrillarin)(RDL) Negative [facility] Reference Range: Negative Performed at: [facility] [address] [place] [address] [id number] Configuration Developer: Jacob Carroll MD, Phone: [phone] Performed at: [address] [id number] Configuration Developer: Marcellus Rivero PhD, Phone: [phone] Performed By: #### L 100.0100 #### [facility] Laboratory [address] [place] [address], [address] Order Comment: [id number] 3ANTI SYN RNR RED RF Result Comment: Test Ordered: [id number] Anti-Synthetase Profile (RDL) Test(s) 917584-Mfla-AE-0 Ab (RDL); 553874- Anti-PL-12 Ab (RDL); 425842-Ljej-GW Ab (RDL); 299442- Anti-OJ Ab (RDL) was developed and its performance characteristics determined by [facility]. It has not been cleared or [...] clinical and other laboratory findings. Performed at: [facility] [address] [place] [address] [id number] Configuration Developer: Jacob Carroll MD, Phone: [phone] Performed at: [place] [id number] Configuration Developer: Marcellus Rivero PhD, Phone: [phone] ANCAon 06-23-2024 Atypical pANCA <1:20 Normal Neg:<1:20 [facility] Comment on above: Result Comment: The atypical pANCA pattern has been observed in a significant percentage of patients with ulcerative colitis, primary sclerosing cholangitis and autoimmune hepatitis. Performed By: #### L 100.0100 #### [facility] Laboratory [address] [facility] [facility] [id number] Cytoplasmic Ab <1:20 Normal Neg:<1:20 [facility] Comment on above: Performed By: #### L 100.0100 #### [facility] Laboratory [address] [facility] [place], [address] Perinuclear Ab. <1:20 Normal Neg:<1:20 [facility] Comment on above: Result Comment: The presence of positive fluorescence exhibiting P-ANCA or C-ANCA patterns alone is not specific for the diagnosis of Kesha's Granulomatosis (WG) or microscopic polyangiitis. Decisions about treatment should not be based solely on ANCA IFA results. The [employer] Consensus recommends follow up testing of positive sera with both AZ- 3 and MPO-ANCA enzyme immunoassays. As many as 5% serum samples are positive only by EIA. Ref. AM J Clin Pathol 1999;111:507-513. Performed By: #### L 100.0100 #### [facility] Laboratory [address] [place], [place], [id number] Angiotensin Convert Enzymeon 06-23-2024 ANGIOT-CONV.ENZ 42 U/L Normal 14-82 [facility] Comment on above: Performed By: #### L 100.0100 #### [facility] Laboratory [address] [place], [address] Iwpj-Lzztxtpnzxw-03 ABon ANTISCLERODERM <0.2 Normal 0.0-0.9 [facility] Comment on above: Performed By: #### L 3100.5500, L3410.0700, L3100.6900, L3410.9998, L803.2200, L3300.1200, L4600.0100, L501.6710, L3100.9100 #### [facility] Laboratory [address] [place], [address] Anti-Smooth Muscle ABSon ANTISMOOTH MUSC 17 Units Normal 0-19 [facility] Comment on above: Result Comment: Nega tive 0 - 19 Weak positive 20 - 30 Moderate to strong positive >30 Actin Antibodies are found in 52-85% of patients with autoimmune hepatitis or chronic active hepatitis and in 22% of patients with primary biliary cirrhosis. Performed By: #### L 3100.5500, L3410.0700, L3100.6900, L3410.9998, L803.2200, L3300.1200, L4600.0100, L501.6710, L3100.9100 #### [facility] Laboratory [address] [place], [place], [id number] Anti-dsDNA Abon 06-23-2024 ANTI-DNA (DS)AB 2 IU/mL Normal 0-9 [facility] Comment on above: Result Comment: Nega tive <5 Equivocal 5 - 9 Positive >9 Performed at: [address] [id number] Configuration Developer: Marcellus Rivero PhD, Phone: [phone] Performed By: #### L 3100.5500, L3410.0700, L3100.6900, L3410.9998, L803.2200, L3300.1200, L4600.0100, L501.6710, L3100.9100 #### [facility] Laboratory [address] [place], [address] CCP IgG Antibodieson 025 CCP IgG Ab. 8 units Normal 0-19 [facility] Comment on above: Result Comment: Nega tive <20 Weak positive 20 - 39 Moderate positive 40 - 59 Strong positive >59 Performed at: [address] [id number] Configuration Developer: Marcellus Rivero PhD, Phone: [phone] Performed By: #### L 100.0100 #### [facility] Laboratory [address] [place], [address] Sjogren's Antibodies A/Bon 0 - ANTI-SS-A < 0.2 Normal 0.0-0.9 [facility] Comment on above: Result Comment: AMENDED REPORT 06/23/241007 Anti-SS-A previously reported as: Test not performed Performed By: #### L 3100.5500, L3410.0700, L3100.6900, L3410.9998, L803.2200, L3300.1200, L4600.0100, L501.6710, L3100.9100 #### [facility] Laboratory [address] [place], [address] ANTI-SS-B < 0.2 Normal 0.0-0.9 [facility] Comment on above: Result Comment: AMENDED REPORT 06/23/241007 Anti-SS-B previously reported as: Test not performed Performed By: #### L 3100.5500, L3410.0700, L3100.6900, L3410.9998, L803.2200, L3300.1200, L4600.0100, L501.6710, L3100.9100 #### [facility] Laboratory [address] [facility] [place], [place], [id number] Actin IgG QnOrdered By: Sathish Nguyen on 06-21-2024 Anti-Smooth Muscle Antibody 17 Units 0- [facility] Comment on above: Negative 0 - 19 Weak positive 20 - 30 Moderate to strong positive >30 Actin Antibodies are found in 52-85% of patients with autoimmune hepatitis or chronic active hepatitis and in 22% of patients with primary biliary cirrhosis. Atypical perinuclear antineu trophil cytoplasmic antibodies measurementOrdered By: Dg Nguyen on 06-21-2024 Atypical p-ANCA <1:20 titer Neg:<1:20 [facility] Comment on above: The atypical pANCA p attern has been observed in asignificant percentage of patients with ulcerative colitis,primary sclerosing cholangitis and autoimmune hepatitis. CRPon 06-21-2024 C-REACTIVE PROT 4.48 mg/L High 0.0-3.0 [facility] Comment on above: Performed By: #### L 3100.5500, L3410.0700, L3100.6900, L3410.9998, L803.2200, L3300.1200, L4600.0100, L501.6710, L3100.9100 #### [facility] Laboratory [address] [facility] [place], [address] CRP [Mass/Vol]Ordered By: Brenna Nguyen on 06-21-2024 C-Reactive Protein Extended Range 4.48 mg/L High 0.0-3.0 [facility] Cyclic citrullinated peptide IgG QnOrdered By: Dg Nguyen on 06-21-2024 Cyclic Citrullinated Peptide IgG Ab 8 units 0- [facility] Comment on above: Negative <20 Weak po sitive 20 - 39 Moderate positive 40 - 59 Strong positive >59Performed at: - [facility] [id number] Director: Marcellus Rivero PhD, Phone: [phone] DNA double strand Ab Qn (S)O rdered By: Dg Nguyen on 06-21-2024 Anti-Double Strand DNA Antibody 2 IU/mL 0-9 [facility] Comment on above: Negative <5 Equivoca l 5 - 9 Positive >9Performed at: [address] [id number] Director: Marcellus Rivero PhD, Phone: [phone] Neutrophil cytoplasmic Ab.cl assic Qn (S)Ordered By: Dg Nguyen on 06-21-2024 Cytoplasmic ANCA (c-ANCA) Antibody <1:20 titer Neg:<1:20 [facility] Neutrophil cytoplasmic Ab.pe rinuclear IF (S) [Titer]Ordered By: Dg Nguyen on 06-21-2024 Perinuclear ANCA (p-ANCA) Antibody <1:20 titer Neg:<1:20 [facility] Comment on above: The presence of posi tive fluorescence exhibiting P-ANCA orC-ANCA patterns alone is not specific for the diagnosis ofWegener's Granulomatosis (WG) or microscopic polyangiitis.Decisions about treatment should not be based solely onANCA IFA results. The [employer] Consensusrecommends follow up testing of positive sera with both AZ-3 and MPO-ANCA enzyme immunoassays. As many as 5% serumsamples are positive only by EIA. Ref. AM J Clin Afpzft1805;111:507-513. No Panel InformationOrdered By: Dg Nguyen on 06-21-2024 Miscellaneous Test COMMENT . [facility] Comment on above: Test Ordered: 704306 Anti-Synthetase Profile (RDL)Test(s) 807870-Kyxw-EF-1 Ab (RDL); 910942-Prme-AV-91 Ab (RDL); 347699-Esso-JZ Ab (RDL); 940300-Xctu-LH Ab (RDL)was developed and its performance characteristicsdetermined by [employer]. It has not been cleared or approvedby the Food and Drug Administration.Anti-Kaela-1 Ab (RDL) <20 Units [facility] Reference Range: <20Anti-PL-7 Ab (RDL) Negative [facility] Reference Range: CszgxrzlFkco-NZ-91 Ab (RDL) Negative [facility] Reference Range: NegativeAnti-EJ Ab (RDL) Negative [facility] Reference Range: NegativeAnti-OJ Ab (RDL) Negative [facility] Reference Range: Negative Interpretation for Anti-Kaela-1: Negative: <20 Weak Positive: 20 - 39 Moderate Positive: 40 - 80 Strong Positive: >80 Given overlapping phenotypes, autoantibody positivity should be interpreted in the context of clinical and other laboratory findings.Performed at: [facility] [address] [place], [place] [id number] Director: Jacob Carroll MD, Phone: [phone] at: [facility] [address] [id number] Director: Marcellus Rivero PhD, Phone: [phone] SCL-70 extractable nuclear A b Qn (S)Ordered By: Dg Nguyen on 06-21-2024 Scl-70 (Scleroderma) Antibody <0.2 AI 0.0-0.9 [facility] SS-A IgG antibody assayOrder ed By: Dg Nguyen on 06-21-2024 SS-A/Ro IgG Antibody < 0.2 AI 0.0-0.9 [facility] Comment on above: Previous reported re sult: TNP AIEdited by: PK on 06/23/24:1008 AMENDED REPORT 06/23/24 1008 Anti-SS-A previously reported as: Test not performed SS-B IgG antibody assayOrder ed By: Dg Nguyen on 06-21-2024 SS-B/La IgG Antibody < 0.2 AI 0.0-0.9 [facility] Comment on above: Previous reported re sult: TNP AIEdited by: PK on 06/23/24:1008 AMENDED REPORT 06/23/24 1008 Anti-SS-B previously reported as: Test not performed Serum DNA double strand anti body assay (units/volume)Ordered By: Dg Nguyen on 06-21-2024 DNA double strand Ab Qn (S) 2 [IU]/mL 0-9 [facility] Comment on above: Negative <5 Equivoca l 5 - 9 Positive >9Performed at: [facility] [address] [place], [place] [id number] Director: Marcellus Rivero PhD, Phone: [phone] Serum Scl-70 antibody assay (units/volume)Ordered By: Dg Nguyen on 06-21-2024 SCL-70 extractable nuclear Ab Qn (S) <0.2 AI 0.0-0.9 [facility] Serum classic neutrophil cyt oplasmic antibody assay (units/volume)Ordered By: Dg Nguyen on 06-21-2024 Neutrophil cytoplasmic Ab.classic Qn (S) <1:20 titer Neg:<1:20 [facility] Serum or plasma C reactive p rotein measurement (mass/volume)Ordered By: Dg Nguyen on 06-21-2024 CRP [Mass/Vol] 4.48 mg/L High 0.0-3.0 [facility] Serum or plasma actin IgG an tibody assay (units/volume)Ordered By: Dg Nguyen on 06-21-2024 Actin IgG Qn 17 Units 0- [facility] Comment on above: Negative 0 - 19 Weak positive 20 - 30 Moderate to strong positive >30 Actin Antibodies are found in 52-85% of patients with autoimmune hepatitis or chronic active hepatitis and in 22% of patients with primary biliary cirrhosis. Serum or plasma angiotensin converting enzyme measurement (enzymatic activity/volume)Ordered By: Dg Nguyen on 06-21-2024 Angiotensin converting enzyme [Catalytic activity/Vol] 42 U/L 14-82 [facility] Serum or plasma cyclic citru llinated peptide IgG antibody assay (units/volume)Ordered By: Dg Nguyen on 06-21-2024 Cyclic citrullinated peptide IgG Qn 8 units 0-19 [facility] Comment on above: Negative <20 Weak po sitive 20 - 39 Moderate positive 40 - 59 Strong positive >59Performed at: [facility] [place], [place] [id number] Director: Marcellus Rivero PhD, Phone: [phone] Serum perinuclear neutrophil cytoplasmic antibody titer by immunofluorescenceOrdered By: Dg Nguyen on 06-21-2024 Neutrophil cytoplasmic Ab.perinuclear IF (S) [Titer] <1:20 titer Neg:<1:20 [facility] Comment on above: The presence of posi tive fluorescence exhibiting P-ANCA orC-ANCA patterns alone is not specific for the diagnosis ofWegener's Granulomatosis (WG) or microscopic polyangiitis.Decisions about treatment should not be based solely onANCA IFA results. The [employer] AN[employer] Consensusrecommends follow up testing of positive sera with both AZ-3 and MPO-ANCA enzyme immunoassays. As many as 5% serumsamples are positive only by EIA. Ref. AM J Clin Ohmngy1534;111:507-513. D-Dimer Quantitative (DVT/PE )on 06-20-2024 D-DIMER QUANT < 0.27 Low 0.27-0.49 [facility] Comment on above: Result Comment: NORM AL D-Dimer level (<0.50) indicates no DVT or PE. Performed By: #### L 300.8000 #### [facility] Laboratory [address] [place], [address] D-dimer measurement for deep venous thrombosisOrdered By: Dg Nguyen on 06-20-2024 D-Dimer Quantitative (PE/DVT) < 0.27 FEU/ug/m Low 0.27-0.49 [facility] Comment on above: NORMAL D-Dimer level (<0.50) indicates no DVT or PE. PAP IG HPV APTIMA 16/18,45on 06-15-2024 ADEQ Comment Normal . [facility] Comment on above: Order Comment: Speci men Comment: [id number] Comment: Source.............Cervix;EndocervixSpecimen Comment: No. of containers..01 ThinPrep Vial Result Comment: Sati sfactory for evaluation. No endocervical component is identified. Performed By: #### L 100.0100 #### [facility] Laboratory [address] [place], [address] COMM . Normal . [facility] Comment on above: Order Comment: Speci men Comment: [id number] Comment: Source.............Cervix;EndocervixSpecimen Comment: No. of containers..01 ThinPrep Vial Performed By: #### L 100.0100 #### [facility] Laboratory [address] [place], [place], [address] COMMENT Comment Normal . [facility] Comment on above: Order Comment: Speci men Comment: [id number] Comment: Source.............Cervix;EndocervixSpecimen Comment: No. of containers..01 ThinPrep Vial Result Comment: This liquid based ThinPrep(R) pap test was screened with the use of an image guided system. Performed By: #### L 100.0100 #### [facility] Laboratory [address] [place], [place], [address] DIAG Comment Normal . [facility] Comment on above: Order Comment: Speci men Comment: [id number] Comment: Source.............Cervix;EndocervixSpecimen Comment: No. of containers..01 ThinPrep Vial Result Comment: NEGA TIVE FOR INTRAEPITHELIAL LESION OR MALIGNANCY. THIS SPECIMEN WAS RESCREENED PART OF OUR TURRET PUNCH OPERATOR PROGRAM. Performed By: #### L 100.0100 #### [facility] Laboratory [address] [place], [place], [address] HPV APTIMA, HR Negative Normal Negative [facility] Comment on above: Order Comment: Speci men Comment: [id number] Comment: Source.............Cervix;EndocervixSpecimen Comment: No. of containers..01 ThinPrep Vial Result Comment: This nucleic acid amplification test detects fourteen high- risk HPV types (16,18,31,33,35,39,45,51,52,56,58,59,66,68) without differentiation. Performed By: #### L 100.0100 #### [facility] Laboratory [address] [place], [place], [address] HPV Casandra Rfx Comment Normal . [facility] Comment on above: Order Comment: Speci men Comment: [id number] Comment: Source.............Cervix;EndocervixSpecimen Comment: No. of containers..01 ThinPrep Vial Result Comment: Crit les not met, HPV Genotype not performed. Performed at: - [facility] [id number] Configuration Developer: Christina Hernandez MD, Phone: [phone] Performed at: =G - [facility] [address] [id number] Configuration Developer: Christina Hrenandez MD, Phone: [phone] Performed By: #### L 100.0100 #### [facility] Laboratory [address] [place], [place], [address] PAPSMR Comment Normal . [facility] Comment on above: Order Comment: Speci men Comment: [id number] Comment: Source.............Cervix;EndocervixSpecimen Comment: No. of containers..01 ThinPrep Vial Result Comment: The Pap smear is a screening test designed to aid in the detection of premalignant and malignant conditions of the uterine cervix. It is not a diagnostic procedure and should not be used as the sole means of detecting cervical cancer. Both false-positive and false-negative reports do occur. Performed By: #### L 100.0100 #### [facility] Laboratory [address] [place], [place], [address] PERFORM Comment Normal . [facility] Comment on above: Order Comment: Speci men Comment: [id number] Comment: Source.............Cervix;EndocervixSpecimen Comment: No. of containers..01 ThinPrep Vial Result Comment: Jessica Ku Branch Sales And Service Representative (ASCP) Performed By: #### L 100.0100 #### [facility] Laboratory [address] [place], [address] QC REV Comment Normal . [facility] Comment on above: Order Comment: Speci men Comment: [id number] Comment: Source.............Cervix;EndocervixSpecimen Comment: No. of containers..01 ThinPrep Vial Result Comment: Valente Calixto, Supervisory Branch Sales And Service Representative (ASCP) Performed By: #### L 100.0100 #### [facility] Laboratory [address] [place], [place], [address] Cervical or vaginal specimen microscopic examination by liquid based cytology (reportOrdered By: Isabelle Frias on 06-08-2024 Cytology report Cyto stain.thin prep Doc (Cvx/Vag) Comment . [facility] Comment on above: Criteria not met, HP V Genotype not performed.Performed at: - [facility] [id number] Director: Christina Hernandez MD, Phone: [phone] at: =[facility] [id number] Director: Christina Hernandez MD, Phone: [phone] Cervical or vagninal specime n microscopic examination by cytology stain (reported asOrdered By: Isabelle Frias on 06-08-2024 Cytology report Cyto stain Doc (Cvx/Vag) Comment . [facility] Comment on above: The Pap smear is a s creening test designed to aid in thedetection of premalignant and malignant conditions of theuterine cervix. It is not a diagnostic procedure andshould not be used as the sole means of detecting cervicalcancer. Both false-positive and false-negative reports dooccur. Golf Cart Attendant Cyto stain Nom (C vx/Vag) [ID]Ordered By: Isabelle Frias on 06-08-2024 Pap Smear Performed By Comment . [facility] Comment on above: Alayna Ku, Cyto technologist (ASCP) Cytology report Cyto stain D oc (Cvx/Vag)Ordered By: Isabelle Frias on 06-08-2024 Thin Prep Pap Smear Comment . [facility] Comment on above: The Pap [...] 06-08-2024 HPV Genotype Special Info Comment . [facility] Comment on above: Criteria not met, HP V Genotype not performed.Performed at: - [facility] [id number] Director: Christina Hernandez MD, Phone: [phone] at: = - [facility] [id number] Director: Christina Hernandez MD, Phone: [phone] Detection in cervical specim en of any of human papilloma virus (HPV) 16, 18, 31, 33,Ordered By: Isabelle Frias on 06-08-2024 HPV 16+18+31+33+35+39+45+51+52+ 56+58+59+66+68 DNA Probe+sig amp Ql (Cvx) Negative Negative [facility] Comment on above: This nucleic acid am plification test detects fourteen high-risk HPV types (16,18,31,33,35,39,45,51,52,56,58,59,66,68)without differentiation. HPV 16+18+31+33+35+39+45+51+ 52+56+58+59+66+68 DNA Probe+sig amp Ql (Cvx)Ordered By: Isabelle Frias on 06-08-2024 Human Papillomavirus High Risk Negative Negative [facility] Comment on above: This nucleic acid am plification test detects fourteen high-risk HPV types (16,18,31,33,35,39,45,51,52,56,58,59,66,68)without differentiation. Image-guided ThinPrep PapOrd ered By: Isabelle Frias on 06-08-2024 Pap Smear Note Comment . [facility] Comment on above: This liquid based Th inPrep(R) pap test was screened withthe use of an image guided system. Image-guided liquid-based Pa pOrdered By: Isabelle Frias on 06-08-2024 Pap Smear Diagnosis Comment . [facility] Comment on above: NEGATIVE FOR INTRAEP ITHELIAL LESION OR MALIGNANCY.THIS SPECIMEN WAS RESCREENED PART OF OUR TURRET PUNCH OPERATOR PROGRAM. Laboratory - CytologyOrdered By: Isabelle Frias on 06-08-2024 Golf Cart Attendant Cyto stain Nom (Cvx/Vag) [ID] Comment . [facility] Comment on above: Alayna Ku, Cyto technologist (ASCP) Laboratory - Miscellaneous t estsOrdered By: Isabelle Frias on 06-08-2024 Service comment (Unsp spec) [Interp] . . [facility] No Panel InformationOrdered By: Isabelle Frias on 06-08-2024 Pap Smear Specimen Adequacy Comment . [facility] Comment on above: Satisfactory for kristine luation. No endocervical component is identified. 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 Normal [facility] Service comment (Unsp spec) [Interp]Ordered By: Isabelle Frias on 06-08-2024 Pap Smear Comment (3) . . [facility] Chest PA and Lateralon 05-29 Chest PA and Lateral [facility] Imaging Services [address] [place], [place] [address] Chest PA and Lateral MR#: [id number] Acct: [id number] Name: OLIVIA LEA Rep #: [id number] : 1985 F 38 From: Luis Carson MD PCP: Maritza Hood DO Status: REG CLI Study: Chest PA and Lateral Date of Exam: 05/29/24 Exam# [id number] Ordering Dr: Dg Nguyen MD EXAM: XR Chest, 2 Views CLINICAL INDICATION: TECHNIQUE: Frontal and lateral views of the chest. COMPARISON: No relevant prior studies available. FINDINGS: LUNGS AND PLEURAL SPACES: Unremarkable. No consolidation. No pneumothorax. HEART: Unremarkable. No cardiomegaly. MEDIASTINUM: Unremarkable. Normal mediastinal contour. BONES/JOINTS: Unremarkable. No acute fracture. RAD/Chest PA and Lateral IMPRESSION: No acute cardiopulmonary process. Reading Location: [facility] CC: Dr. Dg Nguyen MD; Maritza Hood DO Wrap Turner: Signed Normal [facility] Absolute lymphocyte countOrd ered By: Tino Hood on 02-06-2023 Lymphocytes Auto (Unsp spec) [#/Vol] 2.43 10*3/uL 0.83-4.51 [facility] Basophil percentageOrdered B y: Tino Hood on 02-06-2023 Basophils/100 WBC (Bld) 0.6 % 0-1 [facility] Bilirubin [Mass/Vol] 0.50 mg/dL 0.20-1.00 [facility] Comment on above: For patients on eltr ombopag therapy, use of Dimension [place] TBIL is not recommended. Chloride [Moles/Vol] 107 mmol/L 98-107 [facility] Cholesterol [Mass/Vol] 202 mg/dL <200 [facility] Comment on above: <200 mg/dL Desirable 200-240 mg/dL Borderline >240 mg/dL High Risk Eosinophils/100 WBC (Bld) 1.0 % 0-5 [facility] Glucose [Mass/Vol] 91 mg/dL 74-106 [facility] Neutrophils (Bld) [#/Vol] 3.6 10*3/uL 2.0-7.7 [facility] Neutrophils/100 WBC (Bld) 53.5 % 47-70 [facility] Potassium [Moles/Vol] 4.3 mmol/L 3.5-5.1 [facility] Protein [Mass/Vol] 7.7 g/dL 6.4-8.2 [facility] Sodium [Moles/Vol] 138 mmol/L 136-145 [facility] Triglyceride [Mass/Vol] 85 mg/dL <199 [facility] Comment on above: The drugs N-Acetylcy steine and Metamizole may falsely depress this assay.Serum Triglycerides Reference Interval Normal <150 mg/dL Borderline high 150 - 199 mg/dL High 200 - 499 mg/dL Very High > or = 500 mg/dL WBC (Bld) [#/Vol] 6.7 10*3/uL 4.4-11.0 [facility] Blood erythrocytes count (nu mber/volume)Ordered By: Tino Hood on 02-06-2023 RBC (Bld) [#/Vol] 4.90 10*6/uL 4.2-5.4 [facility] Blood hemoglobin measurement (mass/volume)Ordered By: Tino Hood on 02-06-2023 Hemoglobin (Bld) [Mass/Vol] 15.2 g/dL 12.0-15. 0 [facility] Blood lymphocytes/100 leukoc ytesOrdered By: Tino Hood on 02-06-2023 Lymphocytes/100 WBC (Bld) 36.4 % 19-41 [facility] Blood monocytes/100 leukocyt esOrdered By: Tino Hood on 02-06-2023 Monocytes/100 WBC (Bld) 8.4 % 0-10 [facility] Blood platelet mean volumeOr dered By: Tino Hood on 02-06-2023 Platelet mean volume (Bld) [Entitic vol] 11.3 fL 6.2-12.0 [facility] Determination of erythrocyte mean corpuscular volume (MCV)Ordered By: Tino Hood on 02-06-2023 MCV (RBC) [Entitic vol] 92.9 fL 81-99 [facility] Hematocrit Auto (Bld) [Volum e fraction]Ordered By: Tino Hood on 02-06-2023 Hematocrit (Bld) [Volume fraction] 45.5 % 37-47 [facility] Laboratory - Chemistry and C hemistry - challengeOrdered By: Tino Hood on 02-06-2023 ALP [Catalytic activity/Vol] 66 U/L 45-117 [facility] ALT [Catalytic activity/Vol] 23 U/L 13-56 [facility] CO2 [Moles/Vol] 27.0 mmol/L 21.0-32.0 [facility] Globulin (S) [Mass/Vol] 3.9 g/dL 2.2-4.2 [facility] Urea nitrogen/Creatinine [Mass ratio] 12.0 mg/mg 10-20 [facility] Laboratory - Hematology and Cell countsOrdered By: Tino Hood on 02-06-2023 Erythrocyte distribution width (RBC) [Entitic vol] 43.3 fL 35.1-43.9 [facility] Erythrocyte distribution width (RBC) [Ratio] 12.6 % 11.6-14.6 [facility] Immature granulocytes/100 WBC (Bld) 0.100 % 0.0-0.9 [facility] Comment on above: IG% - Immature Granu locytes (promyelocytes, myelocytes and metamyelocytes) > 1% indicates that a LEFT SHIFT is Present. MCH (RBC) [Entitic mass] 31.0 pg 27.0-32.0 [facility] Nucleated RBC/100 WBC (Bld) [Ratio] 0 % 0-5 [facility] MCHC Auto (RBC) [Mass/Vol]Or dered By: Tino Hood on 02-06-2023 MCHC (RBC) [Mass/Vol] 33.4 g/dL 32-36 [facility] No Panel InformationOrdered By: Tino Hood on 02-06-2023 Estimated GFR (MDRD) Amer 88 mL/min >60 [facility] Comment on above: GFR Calc Estimated GFR (MDRD) Non-Af Amer 72 mL/min >60 [facility] Comment on above: Non- GFR Calc Thyroid Stimulating Hormone (TSH) 1.45 uIU/mL 0.358-3.74 [facility] Platelets bldOrdered By: Keagan Hood on 02-06-2023 Platelets (Bld) [#/Vol] 244 10*3/uL 150-450 [facility] Serum or plasma albumin bernard urement (mass/volume)Ordered By: Tino Hood on 02-06-2023 Albumin [Mass/Vol] 3.8 g/dL 3.2-5.0 [facility] Serum or plasma albumin/glob ulin mass ratioOrdered By: Tino Hood on 02-06-2023 Albumin/Globulin [Mass ratio] 1.0 {ratio} 0.9-2.4 [facility] Serum or plasma calcium bernard urement (mass/volume)Ordered By: Tino Hood on 02-06-2023 Calcium [Mass/Vol] 8.8 mg/dL 8.5-10.1 [facility] Serum or plasma cholesterol in HDL measurement (mass/volume)Ordered By: Tino Hood on 02-06-2023 Cholesterol in HDL [Mass/Vol] 71 mg/dL >40 [facility] Comment on above: The drugs N-Acetylcy steine and Metamizole may falsely depress this assay. Reference Range HDL <40 mg/dL Low HDL Cholesterol HDL >or= 60 mg/dL High HDL Cholesterol Serum or plasma cholesterol in VLDL measurement (mass/volume)Ordered By: Tino Hood on 02-06-2023 Cholesterol in VLDL [Mass/Vol] 17 mg/dL 5-40 [facility] Serum or plasma creatinine m easurement (mass/volume)Ordered By: Tino Hood on 02-06-2023 Creatinine [Mass/Vol] 0.92 mg/dL 0.55-1.02 [facility] Comment on above: The validity of the calculated GFR & GFRAA in patients over 70 years has not been determined. Clinical correlation is essential. Serum or plasma low density lipoprotein (LDL) cholesterol measurement (mass/volume)Ordered By: Tino Hood on 02-06-2023 Cholesterol in LDL [Mass/Vol] 114 mg/dL 0-130 [facility] Serum or plasma urea nitroge n measurement (mass/volume)Ordered By: Tino Hood on 02-06-2023 Urea nitrogen [Mass/Vol] 11 mg/dL 7-18 [facility] Thin prep Papanicolaou smear with manual screeningOrdered By: Tino Hood on 02-06-2023 Thin prep Papanicolaou smear with manual screening 18 U/L 15-37 [facility] Thin prep Papanicolaou smear with manual screening 4 5-15 [facility] Whole blood hemoglobin A1c/t otal hemoglobin ratio (mass fraction)Ordered By: Tino Hood on 02-06-2023 HbA1c (Bld) [Mass fraction] 5.1 % 3.8-5.6 [facility] Comment on above: Normal < 5.7 % [...] Acute sinusitis; KAYY = N; Sent To: [facility] Start: Benzonatate 200 MG Oral Capsule; TAKE 1 CAPSULE 3 TIMES DAILY NEEDED Rx By: Sj Baeza; Dispense: 5 Days ; #:15 Capsule; Refill: 0;For: Acute sinusitis; KAYY = N; Sent To: [facility]93 Patient Discussion/Summary Please see your primary care [...] 6 HOURS NEEDED Vitals Vital Signs Recorded: [id number] 07:32PM Uyvtgudkflz78.1 F Heart Rate91 Gwslqmouiub42 Eecrzver601 Perqlkqrj77 Height5 ft 6 in Tngnse142 lb 9.17 oz BMI Ylfsgofyom28.3 kg/m2 BSA Calculated1.77 Tobacco Useb) No PHQ-2 #1. Over the last 2 weeks have you felt down, depressed or hopeless? (If yes, answer PHQ-9 below)No PHQ-2 #2. Over the last 2 weeks have you felt little interest or pleasure in doing things? (If yes, answer PHQ-9 below)No Fall Screeninga) No falls within the last year O2 Qcnhmhgzdo79 Pain Scale4 Physical Exam Patient appears in no apparent distress and is well-hydrated. Vital signs noted. There is tenderness of the right frontal and maxillary sinuses. Examination of the neck, ears, and lungs is normal. Signatures Electronically signed by : Sj Baeza MD; Aug 25 2021 7:41PM EST (Author) Normal [facility] HM 19-49 Yearson 08-22-2021 HM 19-49 Years Diagnoses/Problems Health Maintenance/Risks Encounter for preventive health examination (V70.0) (Z00.00) Patient Discussion/Summary Rec she take 2 puffs bid Symbicort to help with cough/recovery from recent URI; referral for ADHD evaluation By signing my name below, I, Porfirio Oconnor , attest that this documentation has been prepared under the direction and in the presence of Dr. Nuria Dickinson MD.1 All medical record entries made by the Scribe were at my direction and personally dictated [...] go to neuropsychologist, Dr. Gorge Aguilar in [place]. -Noticed since July she has not been [...] Allergies NoKnown No Known Allergies Updated By: ArguetaJuly; 04/22/2017 6:55:49 PM Current Meds Medication NameInstruction [...] Scales' Signatures (more content not included)... Normal Shark Punch CBC AND DIFFERENTIALon 08-20 % AUTOMATED IMMATURE GRAN 0.4 % Normal 0.0 - 0.9 [facility] Comment on above: Result Comment: Dominga ture Granulocyte Count (IG) includes promyelocytes, myelocytes and metamyelocytes but does not include bands. Percent differential counts (%) should be interpreted in the context of the absolute cell counts (cells/L). Performed By: #### C BCDF #### [facility] [address] [place] [address] Basophils (Bld) [#/Vol] 0.03 10*3/uL Normal 0.00 - 0.10 [facility] Comment on above: Performed By: #### C BCDF #### [facility] [address] [place] [address] Basophils/100 WBC (Bld) 0.3 % Normal 0.0 - 2.0 [facility] Comment on above: Performed By: #### C BCDF #### [facility] [address] [place] [address] Eosinophils (Bld) [#/Vol] 0.08 10*3/uL Normal 0. 00 - 0.70 [facility] Comment on above: Performed By: #### C BCDF #### [facility] [address] [place] [address] Eosinophils/100 WBC (Bld) 0.7 % Normal 0.0 - 6.0 [facility] Comment on above: Performed By: #### C BCDF #### [facility] [address] [place] [address] Erythrocyte distribution width (RBC) [Ratio] 12.5 % Normal 11.5 - 14.5 [facility] Comment on above: Performed By: #### C BCDF #### [facility] [address] [place] [address] Hematocrit (Bld) [Volume fraction] 42.8 % Normal 36.0 - 46.0 [facility] Comment on above: Performed By: #### C BCDF #### [facility] [address] [place] [address] Hemoglobin (Bld) [Mass/Vol] 13.6 g/dL Normal 12.0 - 16.0 [facility] Comment on above: Performed By: #### C BCDF #### [facility] [address] [place] [address] Lymphocytes (Bld) [#/Vol] 2.25 10*3/uL Normal 1. 20 - 4.80 [facility] Comment on above: Performed By: #### C BCDF #### [facility] [address] [place] [address] Lymphocytes/100 WBC (Bld) 20.7 % Normal 13 .0 - 44.0 [facility] Comment on above: Performed By: #### C BCDF #### [facility] [address] [place] [address] MCHC (RBC) [Mass/Vol] 31.8 g/dL Low 32.0 - 36.0 [facility] Comment on above: Performed By: #### C BCDF #### [facility] [address] [place] [address] MCV (RBC) [Entitic vol] 97 fL Normal 80 - 100 [facility] Comment on above: Performed By: #### C BCDF #### [facility] [address] [place] [address] Monocytes (Bld) [#/Vol] 0.78 10*3/uL Normal 0.10 - 1.00 [facility] Comment on above: Performed By: #### C BCDF #### [facility] [address] [place] [address] Monocytes/100 WBC (Bld) 7.2 % Normal 2.0 - 10.0 [facility] Comment on above: Performed By: #### C BCDF #### [facility] [address] [place] [address] Neutrophils (Bld) [#/Vol] 7.69 10*3/uL Normal 1. 20 - 7.70 [facility] Comment on above: Performed By: #### C BCDF #### [facility] [address] [place] [address] Neutrophils/100 WBC (Bld) 70.7 % Normal 40 .0 - 80.0 [facility] Comment on above: Performed By: #### C BCDF #### [facility] [address] [place] [address] NUCLEATED RBC 0.0 /100 WBC Normal 0.0-0.0 [facility] Comment on above: Performed By: #### C BCDF #### [facility] [address] [place] [address] Platelets (Bld) [#/Vol] 211 10*3/uL Normal 150 - 450 [facility] Comment on above: Performed By: #### C BCDF #### [facility] [address] [place] [address] RBC 4.43 x10E12/L Normal 4.00 - 5.20 [facility] Comment on above: Performed By: #### C BCDF #### [facility] [address] [place] [address] WBC (Bld) [#/Vol] 10.9 10*3/uL Normal 4.4 - 11.3 [facility] Comment on above: Performed By: #### C BCDF #### [facility] [address] [place] [address] COMPREHENSIVE PANELon 2021 Albumin [Mass/Vol] 4.0 g/dL Normal 3.4 - 5.0 [facility] Comment on above: Performed By: #### C MP #### [facility] [address] [place] [address] ALP [Catalytic activity/Vol] 78 U/L Normal 33 - 110 [facility] Comment on above: Performed By: #### C MP #### [facility] [address] [place] [address] ALT [Catalytic activity/Vol] 14 U/L Normal 7 - 45 [facility] Comment on above: Result Comment: Wanda ents treated with Sulfasalazine may generate falsely decreased results for ALT. Performed By: #### C MP #### [facility] [address] [place] [address] Anion gap [Moles/Vol] 10 mmol/L Normal 10 - 20 [facility] Comment on above: Performed By: #### C MP #### [facility] [address] [place] [address] AST [Catalytic activity/Vol] 13 U/L Normal 9 - 39 [facility] Comment on above: Performed By: #### C MP #### [facility] [address] [place] [address] Bilirubin [Mass/Vol] 0.9 mg/dL Normal 0.0 - 1.2 [facility] Comment on above: Performed By: #### C MP #### [facility] [address] [place] [address] Calcium [Mass/Vol] 9.4 mg/dL Normal 8.6 - 10.6 [facility] Comment on above: Performed By: #### C MP #### [place] [address] [place] [address] Chloride [Moles/Vol] 103 mmol/L Normal 98 - 107 [facility] Comment on above: Performed By: #### C MP #### [facility] [address] [place] [address] Creatinine [Mass/Vol] 0.70 mg/dL Normal 0.50 - 1.05 [facility] Comment on above: Performed By: #### C MP #### [facility] [address] [place] [address] eGFR FEMALE >90 Normal >90 [facility] Comment on above: Result Comment: CALC ULATIONS OF ESTIMATED GFR ARE PERFORMED USING THE 2020 CKD-EPI STUDY REFIT EQUATION WITHOUT THE RACE VARIABLE FOR THE IDMS-TRACEABLE CREATININE METHODS. https://jasn.asnjournals.org/content//ASN. 3486960252 Performed By: #### C MP #### [facility] [address] [place] [address] Glucose [Mass/Vol] 80 mg/dL Normal 74 - 99 [facility] Comment on above: Performed By: #### C MP #### [facility] [address] [place] [address] HCO3 (Bld) [Moles/Vol] 30 mmol/L Normal 21 - 32 [facility] Comment on above: Performed By: #### C MP #### [facility] [address] [place] [address] Potassium [Moles/Vol] 4.4 mmol/L Normal 3.5 - 5.3 [facility] Comment on above: Performed By: #### C MP #### [facility] [address] [place] [address] Protein [Mass/Vol] 7.3 g/dL Normal 6.4 - 8.2 [facility] Comment on above: Performed By: #### C MP #### [facility] [address] [place] [address] Sodium [Moles/Vol] 139 mmol/L Normal 136 - 145 [facility] Comment on above: Performed By: #### C MP #### [facility] [address] [place] [address] Urea nitrogen [Mass/Vol] 6 mg/dL Normal 6 - 23 [facility] Comment on above: Performed By: #### C MP #### [facility] [address] [place] [address] Complete Blood Count + Diffe alice 08-20-2021 Basophils/100 WBC (Bld) 0.3 % 0.0 - 2.0 [facility] Work Phone: Erythrocyte distribution width (RBC) [Ratio] 12.5 % See Below [facility] Work Phone: Comment on above: Reference Range: 11. 5 - 14.5 Hematocrit (Bld) [Volume fraction] 42.8 % See Below [facility] Work Phone: Comment on above: Reference Range: 36. 0 - 46.0 Hemoglobin (Bld) [Mass/Vol] 13.6 g/dL See [facility] Work Phone: Comment on above: Reference Range: 12. 0 - 16.0 Lymphocytes/100 WBC (Bld) 20.7 % See Below [facility] Work Phone: Comment on above: Reference Range: 13. 0 - 44.0 MCHC (RBC) [Mass/Vol] 31.8 g/dL below low threshold See Below [facility] Work Phone: Comment on above: Reference Range: 32. 0 - 36.0 MCV (RBC) [Entitic vol] 97 fL 80 - 100 [facility] Work Phone: Monocytes/100 WBC (Bld) 7.2 % 2.0 - 10.0 [facility] Work Phone: Neutrophils/100 WBC (Bld) [...] (Bld) [#/Vol] 10.9 10*3/uL 4.4 - 11.3 [facility] Work Phone: Complete Blood Count + Differential 0.03 {x10E9/L} See Below [facility] Work Phone: Comment on above: Reference Range: 0.0 0 - 0.10 Complete Blood Count + Differential 0.08 {x10E9/L} See Below [facility] Work Phone: Comment on above: Reference Range: 0.0 0 - 0.70 Complete Blood Count + Differential 0.78 {x10E9/L} See Below [facility] Work Phone: Comment on above: Reference Range: 0.1 0 - 1.00 Complete Blood Count + Differential 2.25 {x10E9/L} See Below [facility] Work Phone: Comment on above: Reference Range: 1.2 0 - 4.80 Complete Blood Count + Differential 7.69 {x10E9/L} See Below [facility] Work Phone: Comment on above: Reference Range: 1.2 0 - 7.70 Complete Blood Count + Differential 0.7 % 0.0 - 6.0 [facility] Work Phone: Complete Blood Count + Differential 0.4 % 0.0 - 0.9 [facility] Work Phone: Comment on above: Immature Granulocyte Count (IG) includes promyelocytes, myelocytes and metamyelocytes but does not include bands. Percent differential counts (%) should be interpreted in the context of the absolute cell counts (cells/L). Complete Blood Count + Differential 0.0 {/100_WBC} 0.0-0.0 [facility] Work Phone: LIPID PANEL (CORONARY RISK 2 )on 08-20-2021 Cholesterol [Mass/Vol] 155 mg/dL Normal 0 - 199 [facility] Comment on above: Result Comment: . AGE [...] Performed By: #### L IPID #### [facility] [address] [place] [address] Cholesterol in HDL [Mass/Vol] 59.3 mg/dL Normal [facility] Comment on above: Result Comment: . AGE VERY LOW LOW NORMAL HIGH 0-19 Y < 35 < 40 40-45 ---- 20-24 Y ---- < 40 >45 ---- >24 Y ---- < 40 40-60 >60 . Performed By: #### L IPID #### [facility] [address] [place] [address] Cholesterol in LDL [Mass/Vol] 80 mg/dL Normal 0 - 99 [facility] Comment on above: Result Comment: . NEAR BORD AGE DESIRABLE OPTIMAL HIGH HIGH VERY HIGH 0-19 Y 0 - 109 --- 110-129 >/= 130 ---- 20-24 Y 0 - 119 --- 120-159 >/= 160 ---- >24 Y 0 - 99 100-129 130-159 160-189 >/=190 . Performed By: #### L IPID #### [facility] [address] [place] [address] Cholesterol in VLDL [Mass/Vol] 16 mg/dL Normal 0 - 40 [facility] Comment on above: Performed By: #### L IPID #### [facility] [address] [place] [address] Cholesterol.total/Cholester ol in HDL [Mass ratio] 2.6 {ratio} Normal [facility] Comment on above: Result Comment: REF VALUES DESIRABLE < 3.4 HIGH RISK > 5.0 Performed By: #### L IPID #### [facility] [address] [place] [address] Triglyceride [Mass/Vol] 78 mg/dL Normal 0 - 149 [facility] Comment on above: Result Comment: [...] Performed By: #### L IPID #### [facility] [address] [place] [address] Laboratory - Chemistry and C hemistry - challengeon 08-20-2021 Albumin BCP dye [Mass/Vol] 4.0 g/dL 3.4 - 5.0 [facility] Work Phone: ALP [Catalytic activity/Vol] 78 U/L 33 - 110 [facility] Work Phone: ALT With P-5'-P [Catalytic activity/Vol] 14 U/L 7 - 45 [facility] Work Phone: Comment on above: Patients treated wit h Sulfasalazine may generate falsely decreased results for ALT. Anion gap [Moles/Vol] 10 mmol/L 10 - 20 [facility] Work Phone: AST With P-5'-P [Catalytic activity/Vol] 13 U/L 9 - 39 [facility] Work Phone: Bilirubin [Mass/Vol] 0.9 mg/dL 0.0 - 1.2 [facility] Work Phone: Calcium [Mass/Vol] 9.4 mg/dL 8.6 - 10.6 [facility] Work Phone: Chloride [Moles/Vol] 103 mmol/L 98 - 107 [facility] Work Phone: CO2 [Moles/Vol] 30 mmol/L 21 - 32 [facility] Work Phone: Creatinine [Mass/Vol] 0.70 mg/dL See Below [facility] Work Phone: Comment on above: Reference Range: 0.5 0 - 1.05 Glucose [Mass/Vol] 80 mg/dL 74 - 99 [facility] Work Phone: Potassium [Moles/Vol] 4.4 mmol/L 3.5 - 5.3 [facility] Work Phone: Protein [Mass/Vol] 7.3 g/dL 6.4 - 8.2 [facility] Work Phone: Sodium [Moles/Vol] 139 mmol/L 136 - 145 [facility] Work Phone: TSH Qn 1.71 m[IU]/L See Below [facility] Work Phone: Comment on above: Reference Range: 0.4 4 - 3.98 TSH testing is performed using different testing methodology at [facility] than at [facility]. Direct result comparisons should only be made within the same method. Urea nitrogen [Mass/Vol] 6 mg/dL 6 - 23 [facility] Work Phone: Lipid Panelon 08-20-2021 Cholesterol [Mass/Vol] 155 mg/dL 0 - 199 [facility] Work Phone: Comment on above: . AGE [...] dosing. Cholesterol in HDL [Mass/Vol] 59.3 mg/dL [facility] Work Phone: Comment on above: . AGE VERY LOW LOW N ORMAL HIGH 0-19 Y < 35 < 40 40-45 ---- 20-24 Y ---- < 40 >45 ---- >24 Y ---- < 40 40-60 >60. Cholesterol in LDL [Mass/Vol] 80 mg/dL 0 - 99 [facility] Work Phone: Comment on above: . NEAR BORD AGE VON RABLE OPTIMAL HIGH HIGH VERY HIGH 0-19 Y 0 - 109 --- 110-129 >/= 130 ---- 20-24 Y 0 - 119 --- 120-159 >/= 160 ---- >24 Y 0 - 99 100-129 130-159 160-189 >/=190. Cholesterol.total/Cholester ol in HDL [Mass ratio] 2.6 {ratio} [facility] Work Phone: Comment on above: REF VALUESDESIRABLE < 3.4HIGH RISK > 5.0 Triglyceride [Mass/Vol] 78 mg/dL 0 - 149 [facility] Work Phone: Comment on above: [...] Lipid Panel 16 mg/dL 0 - 40 [facility] Work Phone: No Panel Informationon 08-20 >90 >90 [facility] Work Phone: Comment on above: CALCULATIONS OF DEANDRE MATED GFR ARE PERFORMED USING THE 2020 CKD-EPI STUDY REFIT EQUATION WITHOUT THE RACE VARIABLE FOR THE IDMS-TRACEABLE CREATININE METHODS.https://jasn.asnjournals.org/content/early/ASN.5969128504 TSH WITH REFLEX TO FREE T4 I F ABNORMALon 08-20-2021 TSH Qn 1.71 m[IU]/L Normal 0.44 - 3.98 [facility] Comment on above: Result Comment: TSH testing is performed using different testing methodology at [facility] than at other [facility]. Direct result comparisons should only be made within the same method. Performed By: #### T HYDS #### [facility] [address] [place] [address] TESTOS FRon 12-13-2020 Testosterone Free Male <1 Normal So [facility] Comment on above: Order Comment: Order ed on [facility]# [id number] Result Comment: Testosterone Free, Adult Male was performed at your laboratory's request. This assay has poor precision and is inaccurate at free testosterone concentrations typically seen in women and children. An accurate and precise mass spectrometry method is recommended for women and children (ARUP test code 5401117, Testosterone, Free, Females or Children). INTERPRETIVE INFORMATION: Testosterone, Free Brandon Stage IV 35 - 169 pg/mL Brandon Stage V 41 - 239 pg/mL The concentration of Free Testosterone is derived from a mathematical expression based on the constant for the binding of testosterone to Sex Hormone Binding Globulin (SHBG). Access complete set of age- and/or gender-specific reference intervals for this test in the [facility] Test Directory ([facility]). Performed By: [facility] [address] [place] [address] Financial Quantitative Analyst: Allison Hobbs MD Performed By: #### 1 [id number] #### [facility] [address] [place] [address] Tire Center Manager: Todd Bradshaw MD [facility] Office-Progress Notes-Pr ovideron 12-11-2020 Amb Office-Progress Notes-Provider Assessment/Plan 1. 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 Normal [facility] Ambulatory Clinical Summaryo n 12-11-2020 Ambulatory Clinical Summary DEANDRA BELTRE :1985 Visit Date:12/11/2020 Ambulatory Visit Instructions Your Diagnosis Abnormal uterine bleeding Nexplanon in place Decreased libido Your Care Team Attending Physician - MICHELLE PAL MD, FACOG Primary Care Physician - NURIA DCIKINSON Procedures Performed Last pap- Normal () Nexplanon [...] call to get immediate medical attention! Normal [facility] VIT D 25 LEVELon 12-11-2020 Vit D 25 23 ng/mL Normal [facility] Comment on above: Order Comment: Order ed on Fin# [id number] Result Comment: Less than 20 ng/ml Deficient 20-30 ng/ml Insufficient 30-100 ng/ml Sufficient Greater than 100 ng/ml Potential toxicity Patients who have recently undergone fluorescein dye angiography in the past 48 to 72 hours (or longer if renal insufficient) may have falsely elevated results. Performed By: #### 9 [id number] #### [facility] [address] [place], [place] [id number] T[employer] Center Manager: Todd Bradshaw MD Phone Msg[place] 10-25-2020 Phone Msg - From: Maribell Farrell To: MOLINA CUBA, MICHELLE; Sent: 10/24/2020 15:35:22 EDT Patient called in [...] and pt is scheduled for 12/11/20 Normal [facility] Phone Msgon 10-24-2020 Phone Msg - From: Maribell Farrell ([facility]) To: MICHELLE PAL MD; Sent: 10/24/2020 15:41:50 EDT Subject: FW: Michelle Pal MD --- [facility] TUBE SORTER: Control Pills Vacation Pt has been scheduled From: OLIVIA BELTRE To: Michelle Pal MD --- [facility] TUBE SORTER ([facility]) Sent: 10/24/2020 02:50 p.m. EDT Subject: Michelle Pal MD --- Women?[facility] TUBE SORTER: Control Pills Vacation Thank you for your message. It has been successfully sent to the appropriate care team. Daryl Pla, I met with you at the end [...] days I leave to go backpacking in [place] and [place] for 2 weeks. I am [...] message at the office. 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 If you need to see me I am available today, Wednesday, Wednesday and Wednesday any time (but not from 9:30-10:00am 10/28). Thank you so much for everything! Olivia Beltre [phone] [facility] Phone Msgon 08-29-2020 Phone Msg - From: MICHELLE PAL MD, FACOG To: OLIVIA BELTRE Sent: 08/29/2020 07:55:40 EDT Subject: Normal thyroid panel Olivia, Results: Date Result Name Value Ref Range 08/28/2020 12: Thyroxine 7.0 ug/dl (4.5 - 10.9) 08/28/2020 12: TSH 0.93 uIU/ml (0.36 - 3.74) 08/28/2020 12: Free T3 2.5 pg/mL (2.2 - 4.0) This is a normal thyroid panel. Please let us know if we need to forward this to your other physician. Michelle Pal MD [facility] Ambulatory Clinical Summaryo n 08-28-2020 Ambulatory Clinical Summary DEANDRA BELTRE :1985 Visit Date:08/28/2020 Ambulatory Visit Instructions Your Diagnosis Abnormal uterine bleeding Your Care Team Attending Physician - MICHELLE [...] call to get immediate medical attention! Normal [facility] FT3on 08-28-2020 Free T3 [Mass/Vol] 2.5 pg/mL Normal 2.2-4.0 [facility] Comment on above: Order Comment: Order ed on Fin# [id number] Performed By: #### 1 [id number] #### [facility] [address] [place], [place] [id number] T[employer] Center Manager: Todd Bradshaw MD T4on 08-28-2020 T4 [Mass/Vol] 7.0 ug/dL Normal 4.5-10.9 [facility] Comment on above: Order Comment: Order ed on Fin# [id number] Result Comment: Kenzie puncture should occur prior to sulfasalazine administration due to the potential for falsely elevated results. Baseline assay values before administration of sulfasalazine and sulfapyridine therapy would not be affected. Performed By: #### 1 [id number] #### [facility] [address] [place], [place] [address] T[employer] Center Manager: Todd Bradshaw MD TSHon 08-28-2020 TSH Qn 0.93 m[IU]/L Normal 0.36-3.74 [facility] Comment on above: Order Comment: Order ed on Fin# [id number] Result Comment: High levels of serum biotin may interfere with this test. Performed By: #### 1 [id number], [id number] #### [facility] [address] [place], [place] [id number] T[employer] Center Manager: Todd Bradshaw MD Phone Msgon 08-07-2020 Phone [...] to try. Aygestin 5 mgm proposed Normal [facility] Complete Blood Count + Diffgloria jenkins 11-09-2019 Basophils (Bld) [#/Vol] 0.04 {x10E9/L} See Belo w [facility] Work Phone: Comment on above: Reference Range: 0.0 0 - 0.10 Basophils/100 WBC (Bld) 0.6 % 0.0 - 2.0 M [facility] Work Phone: Eosinophils (Bld) [#/Vol] 0.07 {x10E9/L} See Be low [facility] Work Phone: Comment on above: Reference Range: 0.0 0 - 0.70 Eosinophils/100 WBC (Bld) 1.0 % 0.0 - 6.0 [facility] Work Phone: Erythrocyte distribution width (RBC) [Ratio] 12.6 % See Below [facility] Work Phone: Comment on above: Reference Range: 11. 5 - 14.5 Hematocrit (Bld) [Volume fraction] 40.9 % See Below [facility] Work Phone: Comment on above: Reference Range: 36. 0 - 46.0 Hemoglobin (Bld) [Mass/Vol] 13.9 g/dL See Belo w [facility] Work Phone: Comment on [...] vol] 91 fL 80 - 100 [facility] Work Phone: Monocytes (Bld) [#/Vol] 0.67 {x10E9/L} See Belo w [facility] Work Phone: Comment on above: Reference Range: 0.1 0 - 1.00 Monocytes/100 WBC (Bld) 9.4 % 2.0 - 10.0 [facility] Work Phone: Neutrophils (Bld) [#/Vol] 4.00 {x10E9/L} See Be low [facility] Work Phone: Comment on above: Reference Range: 1.2 0 - 7.70 Neutrophils/100 WBC (Bld) 56.2 % See Below [facility] Work Phone: Comment on above: Reference Range: 40. 0 - 80.0 Platelets (Bld) [#/Vol] 211 {x10E9/L} 150 - 450 [facility] Work Phone: RBC (Bld) [#/Vol] 4.47 {x10E12/L} See Below [facility] Work Phone: Comment on above: Reference Range: 4.0 0 - 5.20 WBC (Bld) [#/Vol] 0.0 {/100_WBC} 0.0-0.0 [facility] Work Phone: WBC (Bld) [#/Vol] 7.1 {x10E9/L} 4.4 - 11.3 [facility] Work Phone: Complete Blood Count + Differential 0.1 % 0.0 - 0.9 [facility] Work Phone: Comment on above: Immature Granulocyte Count (IG) includes promyelocytes, myelocytes and metamyelocytes but does not include bands. Percent differential counts (%) should be interpreted in the context of the absolute cell counts (cells/L). Thyroidon 11-09-2019 TSH Qn 0.97 {mIU/L} See Below [facility] Work Phone: Comment on above: Reference Range: 0.4 4 - 3.98 TSH testing is performed using different testing methodology at [facility] than at other [facility]. Direct result comparisons should only be made within the same method. Vitamin D 25-Hydroxyon 11-08 Calcidiol [Mass/Vol] 38 ng/mL [facility] Work Phone: Comment on above: .DEFICIENCY: < 20 NG /MLINSUFFICIENCY: 20-29 NG/MLSUFFICIENCY: 30-100 NG/MLTHIS ASSAY ACCURATELY QUANTIFIES THE SUM OFVITAMIN D3, 25-HYDROXY AND VIT D2,25-HYDROXY. Lipid Panelon 10-27-2019 Cholesterol [Mass/Vol] 181 mg/dL 0 - 199 [facility] Work Phone: Comment on above: . AGE [...] dosing. Cholesterol in HDL [Mass/Vol] 69.2 mg/dL [facility] Work Phone: Comment on above: . AGE VERY LOW LOW N ORMAL HIGH 0-19 Y < 35 < 40 40-45 ---- 20-24 Y ---- < 40 >45 ---- >24 Y ---- < 40 40-60 >60. Cholesterol in LDL [Mass/Vol] 100 mg/dL above high threshold 0 - 99 [facility] Work Phone: Comment on above: . NEAR BORD AGE VON RABLE OPTIMAL HIGH HIGH VERY HIGH 0-19 Y 0 - 109 --- 110-129 >/= 130 ---- 20-24 Y 0 - 119 --- 120-159 >/= 160 ---- >24 Y 0 - 99 100-129 130-159 160-189 >/=190. Cholesterol.total/Cholester ol in HDL [Mass ratio] 2.6 {ratio} [facility] Work Phone: Comment on above: REF VALUESDESIRABLE < 3.4HIGH RISK > 5.0 Triglyceride [Mass/Vol] 60 mg/dL 0 - 149 M [facility] Work Phone: Comment on above: [...] Lipid Panel 12 mg/dL 0 - 40 [facility] Work Phone: Metabolic Panelon 10-27-2019 ALP [Catalytic activity/Vol] 62 U/L 33 - 110 [facility] Work Phone: Anion gap [Moles/Vol] 12 mmol/L 10 - 20 [facility] Work Phone: Bilirubin [Mass/Vol] 0.9 mg/dL 0.0 - 1.2 [facility] Work Phone: Calcium [Mass/Vol] 9.2 mg/dL 8.6 - 10.6 [facility] Work Phone: Chloride [Moles/Vol] 103 mmol/L 98 - 107 [facility] Work Phone: CO2 [Moles/Vol] 28 mmol/L 21 - 32 [facility] Work Phone: Creatinine [Mass/Vol] 0.75 mg/dL See Below [facility] Work Phone: Comment on above: Reference Range: 0.5 0 - 1.05 Glucose [Mass/Vol] 75 mg/dL 74 - 99 [facility] Work Phone: Potassium [Moles/Vol] 4.7 mmol/L 3.5 - 5.3 [facility] Work Phone: Comment on above: MILD HEMOLYSIS DETEC VERENICE. The result may be falsely elevated due tohemolysis or other interferents. Clinical correlation is recommended.Repeat testing may be considered. Protein [Mass/Vol] 7.0 g/dL 6.4 - 8.2 [facility] Work Phone: Sodium [Moles/Vol] 138 mmol/L 136 - 145 [facility] Work Phone: Urea nitrogen [Mass/Vol] 8 mg/dL 6 - 23 [facility] Work Phone: Otheron 10-27-2019 Albumin BCP dye [Mass/Vol] 4.4 g/dL 3.4 - 5.0 [facility] Work Phone: ALT With P-5'-P [Catalytic activity/Vol] 21 U/L 7 - 45 [facility] Work Phone: Comment on above: Patients treated wit h Sulfasalazine may generate falsely decreased results for ALT. AST With P-5'-P [Catalytic activity/Vol] 30 U/L 9 - 39 [facility] Work Phone: Comment on above: MILD HEMOLYSIS DETEC VERENICE. The result may be falsely elevated due tohemolysis or other interferents. Clinical correlation is recommended.Repeat testing may be considered. >60 >60 [facility] Work Phone: Comment on above: CALCULATIONS OF DEANDRE MATED GFR ARE PERFORMED USING THE MDRD STUDY EQUATION FOR THE IDMS-TRACEABLE CREATININE METHODS. CLIN CHEM 2007;53:766-72 Imm/Pathon 01-05-2019 Cytology report Cyto stain.thin prep Doc (Cvx/Vag) [facility] Work Phone: Otheron 01-05-2019 59 Date of Procedure: 01/05/2019 Pathologist: [facility], CytologyDate Reported: 01/10/2019Date Received: 01/05/2019Submitting Physician: NURIA DICKINSON FINAL CYTOLOGICAL INTERPRETATIONA. THINPREP PAP CERVICAL Reflex - [facility] only: Specimen adequacy: SATISFACTORY FOR EVALUATION. Quality Indicator: Endocervical/transform ation zone component is present. General Categorization: NEGATIVE FOR INTRAEPITHELIAL LESION OR MALIGNANCY. Ancillary Testing: Specimen does not meet the requisition-stated criteria for HPV testing.See Pap test interpretation above. This specimen has been analyzed by the ServerEnginesPrep Imaging System ([employer]an automated imaging and review system, which assists the laboratory inevaluating cells on ThinPrep Pap tests. Following automated imaging, selectedfields from every slide were reviewed by a delivery room clerk and/or pathologist.Electronic ally Signed Out By [facility], Cytology//DDH By the signature on this [...] THINPREP PAP CERVICAL Reflex - [facility] only [facility] Work Phone: Vital Signs Date Time Vital Sign Value Performing Clinician Facility 06-08-2024 13:41-0500 Body height 167.64 cm Maritza Sana DO Work Phone: [facility] 06-08-2024 13:41-0500 Body mass index (BMI) [Ratio] 21.7 kg/m2 Maritza Sana DO Work Phone: [facility] 06-08-2024 13:41-0500 Body weight 60.89 kg Maritza Sana DO Work Phone: [facility] 06-08-2024 13:41-0500 Diastolic blood pressure 72 mm[Hg] Maritza Sana DO Work Phone: [facility] 06-08-2024 13:41-0500 Systolic blood pressure 109 mm[Hg] Maritza Sana DO Work Phone: [facility] 05-14-2023 09:57-0500 Body temperature 98.6 [degF] Bessy Raman APRN.JAREK DENNEY Work Phone: [facility] 05-14-2023 09:57-0500 Body weight 63.96 kg Bessy Raman APRN.JAREK DENNEY Work Phone: [facility] 05-14-2023 09:57-0500 Diastolic blood pressure 81 mm[Hg] Bessy Raman APRN.JAREK DENNEY Work Phone: [facility] 05-14-2023 09:57-0500 Heart rate 68 /min Bessy Raman APRN.JUMANA, DNP Work Phone: [facility] 05-14-2023 09:57-0500 Respiratory rate 20 /min Bessy Raman APRN.JUMANA, DNP Work Phone: [facility] 05-14-2023 09:57-0500 SaO2% (BldA) [Mass fraction] 100 % Bessy Raman APRN.TAP DANCER, DNP Work Phone: [facility] 05-14-2023 09:57-0500 Systolic blood pressure 118 mm[Hg] Bessy Raman APRN.CNP, JAREK Work Phone: [facility] 11-17-2019 16:25-0400 BMI (Body Mass Index) 22.97 kg/m2 [facility] Work Phone: 11-17-2019 16:25-0400 Body weight 64.55 kg [facility] Work Phone: 11-17-2019 16:25-0400 BP Diastolic 64 mm[Hg] [facility] Work Phone: 11-17-2019 16:25-0400 BP Systolic 118 mm[Hg] [facility] Work Phone: 11-17-2019 16:25-0400 BSA (Body Surface Area) 1.73 m2 [facility] Work Phone: 11-17-2019 16:25-0400 Height 167.64 cm [facility] Work Phone: 11-06-2019 18:04-0400 BMI (Body Mass Index) 23.15 kg/m2 Nuria Dickinson [facility] Work Phone: 11-06-2019 18:04-0400 Body Temperature 98.6 [degF] [facility] Work Phone: 11-06-2019 18:04-0400 Body weight 65.05 kg Nuria Adlerrt [facility] Work Phone: 11-06-2019 18:04-0400 BP Diastolic 70 mm[Hg] Nuria Adlerrt [facility] Work Phone: 11-06-2019 18:04-0400 BP Systolic 102 mm[Hg] Nuria Adlerrt [facility] Work Phone: 11-06-2019 18:04-0400 BSA (Body Surface Area) 1.74 m2 Nuria Adlerrt [facility] Work Phone: 11-06-2019 18:04-0400 Height 167.64 cm Nuria Adlerrt [facility] Work Phone: 01-05-2019 18:03-0400 BMI (Body Mass Index) 20.5 kg/m2 Nuria Adlerrt [facility] Work Phone: 01-05-2019 18:03-0400 Body Temperature 98.9 [degF] Nuria Adlerrt [facility] Work Phone: 01-05-2019 18:03-0400 Body weight 57.61 kg Nuria Adlerrt [facility] Work Phone: 01-05-2019 18:03-0400 BP Diastolic 60 mm[Hg] Nuria Adlerrt [facility] Work Phone: 01-05-2019 18:03-0400 BP Systolic 98 mm[Hg] Nuria Zavala Alok [facility] Work Phone: 01-05-2019 18:03-0400 BSA (Body Surface Area) 1.65 m2 Nuria Adlerrt [facility] Work Phone: 01-05-2019 18:03-0400 Height 167.64 cm [facility] Work Phone: 01-05-2019 [id number] Pulse (Heart Rate) 62 /min [facility] Work Phone: Encounters Encounter Date Encounter Type Care Provider Facility Start: 11-25-2024 End: 11-25-2024 ambulatory Maritza Sana DO Work Phone: -Laboratory Start: 11-25-2024 End: 11-25-[address] 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); Dry eye syndrome of both eyes; Status post LASIK surgery of both eyes Start: 10-24-2024 End: 10-24-2024 ambulatory ANNIE PERAZA Facility:[facility] Start: 09-04-2024 End: 09-04-2024 ambulatory Maritza Sana DO Work Phone: [facility] Work Phone: Start: 09-04-2024 End: 09-04-2024 Patient encounter procedure Isabelle Frias CNM -Outpatient Breast Imaging Work Phone: Start: 09-04-2024 End: 09-04-20[facility] Start: 06-21-2024 End: 06-21-2024 ambulatory Maritza Sana DO Work Phone: [facility] Work Phone: Start: 06-21-2024 End: 06-21-[address] Dg Nguyen MD -Laboratory Work Phone: Start: 06-20-2024 End: 06-21-2024 ambulatory Maritza Sana DO Work Phone: [facility] Work Phone: Start: 06-20-2024 End: 06-20-[address] Dg Nguyen MD -Laboratory Work Phone: Start: 06-20-2024 End: 06-20-2024 [facility] Start: 06-08-2024 End: 06-08-2024 ambulatory Maritza Sana DO Work Phone: [facility] Work Phone: Start: 06-08-2024 End: 06-08-2024 Patient encounter procedure Isabelle Frias CNM -Laboratory, Specimen Work Phone: Start: 06-08-2024 Encounter for gynecological examination (general) (routine) without abnormal findings Isabelle Frias [facility] Start: 06-08-2024 End: 06-08-2024 Patient encounter procedure Isabelle Frias CNM -[facility] Work Phone: Start: 06-08-2024 End: 06-08-2024 Patient encounter status Isabelle Frias [facility] Start: 06-08-2024 End: 06-08-2024 ambulatory Isabelle Frias Facility:[facility] Start: 06-08-2024 End: 06-08-2024 ambulatory Isabelle Frias Facility:[facility] Start: 05-29-2024 End: 05-29-2024 ambulatory Maritza Sana DO Work Phone: [facility] Work Phone: Start: 05-29-2024 End: 05-29-[address] 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); Dry eye syndrome of both eyes; Status post LASIK surgery of both eyes Start: 05-14-2023 End: 05-14-2023 Patient encounter procedure Bessy Raman APRN.TAP DANCER, DNP Work Phone: [facility] Comment on above: Herpes zoster withou t complication (Primary Dx) Start: 02-06-2023 End: 02-06-2023 ambulatory [facility] Work Phone: Start: 02-06-2023 End: 02-06-2023 Patient encounter procedure [facility]-Laboratory Work Phone: Start: 04-01-2022 End: 04-01-2022 Patient encounter procedure Frank iL MD Work Phone: Ophthalmology Comment on above: [...] whether persistent Start: 08-24-2021 Chart Update Nuria Adler rt Work Phone: [facility] Work Phone: Start: 08-23-2021 Refill No Espinosa i, MD Work Phone: Pulmonary Medicine Comment on above: Refill Request Start: 08-22-2021 Periodic preventive med est patient 18-39 yrs Nuria Dickinson Work Phone: [facility] Work Phone: Start: 08-14-2021 AUDIT Nuria Adler rt Work Phone: [facility] Work Phone: Start: 11-06-2019 Patient encounter procedure KarinSally Adlerrt [facility] Work Phone: Start: 01-05-2019 Patient encounter procedure Nuria Adlerrt [facility] Work Phone: Start: 03-31-2018 Patient encounter procedure Nuria Adlerrt [facility] Work Phone: Start: 03-04-2018 Patient encounter procedure LUIS LEUNG Facility:[id number] Start: 12-31-2017 Patient encounter procedure LUIS GURROLACASIMIROGloria [facility] Start: 12-13-2017 Patient encounter procedure LUIS LEUNG Facility:[id number] Start: 11-12-2017 Patient encounter procedure Nuria Adlerrt [facility] Work Phone: Start: 09-02-2017 Patient encounter procedure Nuria Adlerrt [facility] Work Phone: Start: 08-09-2017 Patient encounter procedure Nuria Adlerrt [facility] Work Phone: Start: 06-10-2017 Patient encounter procedure Nuria Adlerrt [facility] Work Phone: Start: 04-22-2017 Patient encounter procedure Nuria Dickinson [facility] Work Phone: Start: 01-20-2017 Nursing evaluation o f patient and report Nuria Dickinson [facility] Work Phone: Patient encounter status Nuria Dickinson Work Phone: [facility] Work Phone: Procedures Date Procedure Procedure Detail Performing Clinician Start: 09-04-2024 Screening mammography K miguel Hood [employer] Work Phone: Start: 06-21-2024 Antibody measurement Carson Hood [employer] Work Phone: Comment on above: The atypical pANCA p attern has been observed in asignificant percentage of patients with ulcerative colitis,primary sclerosing cholangitis and autoimmune hepatitis. Start: 06-21-2024 Antibody to lupus La protein measurement Maritza Sana [employer] Phone: Comment on above: Previous reported re sult: TNP AIEdited by: PK on 06/23/24:1008 AMENDED REPORT 06/23/24 1008 Anti-SS-B previously reported as: Test not performed Start: 06-21-2024 Antibody to SS-A measurement Maritza Hood [employer] Phone: Comment on above: Previous reported re sult: TNP AIEdited by: PK on 06/23/24:1008 AMENDED REPORT 06/23/24 1008 Anti-SS-A previously reported as: Test not performed Start: 06-20-2024 D-dimer assay, quantitative Maritza Hood [employer] Work Phone: Comment on above: NORMAL D-Dimer level (<0.50) indicates no DVT or PE. Start: 06-08-2024 Liquid based cervica l cytology screening Maritza Hood [employer] Phone: Comment on above: NEGATIVE FOR INTRAEP ITHELIAL LESION OR MALIGNANCY.THIS SPECIMEN WAS RESCREENED PART OF OUR [employer]PER[employer] PROGRAM. This liquid based Th inPrep(R) pap [...] DTaP,Tdap,Td Vaccine (3 - Td or Tdap) [facility] Start: 10-25-2025 End: 10-25-2025 Patient encounter procedure 10/25/2025 1:00 PM EDT Office Visit [facility] [address] [place] [address] Annie Peraza, OD [address] [place] [address] Diagnostics[facility] [address] [address] 1 yr- complete eye exam Ophthalmology Comment on above: 1 yr- complete eye e xam Start: 12-04-2024 Influenza vaccination Influenza Vacc ine (#1) [facility] Start: 10-19-2024 End: 10-19-2024 Patient encounter procedure 10/19/2024 2:30 PM EDT Office Visit [facility] [address] [place] [address] Annie Peraza, OD [address] [place] [address] 1 YR F/U complete eye exam Ophthalmology Comment on above: 1 YR F/U complete ey e exam Start: 06-08-2024 Liquid based cervica l cytology screening [facility] Start: 12-05-2023 Influenza vaccination Influenza Vacc ine (#1) [facility] Start: 2023 Screening for malignant neoplasm of breast Mammogram Screening [facility] Start: 04-05-2023 Behavioral Health Screening Behavioral Health Screening [facility] Start: 04-05-2023 Depression Assessment Depression Ass essment [facility] Start: 12-04-2022 Covid-19 Vaccine ( season) Covid-19 Vaccine ( season) [facility] Start: 12-04-2021 Influenza vaccination INFLUENZA (#1) [facility] Start: 08-22-2021 PHYSICAL, Provider: Nuria Dickinson, Status: Pen, Time: 3:00 PM PHYSICAL, Provider: Nuria Dickinson, Status: Pen, Time: 3:00 PM [facility] Work Phone: Start: 04-05-2021 DEPRESSION ASSESSMENT DEPRESSION ASS ESSMENT [facility] Start: 03-12-2021 COVID-19 VACCINE (4 - Booster for Pfizer series) COVID-19 VACCINE (4 - Booster for Pfizer series) [facility] Start: 01-05-2019 Microscopic observation Cyto stain.thin prep Nom (Cvx) PAP BLADE GRINDER, Cytology [facility] Work Phone: Start: 09-05-2013 HPV TESTING HPV TESTING [facility] Start: 09-05-2013 Screening for malignant neoplasm of cervix HPV Testing [facility] Start: 09-05-2004 PAP TESTING PAP TESTING [facility] Start: 09-05-2004 Screening for malignant neoplasm of cervix [facility] Start: 09-05-2002 Pneumococcal vaccination Pneumococcal Vaccine (1 of 2 - PCV) [facility] Start: 09-05-2002 Urine microalbumin profile DTAP,TDAP,TD (1 - Tdap) [facility] Start: 09-05-2001 ANNUAL PCP TEAM CHRONIC DISEASE VISIT ANNUAL PCP TEAM CHRONIC DISEASE VISIT [facility] Start: 09-05-2001 Anxiety Screening Anxiety Screening [facility] Start: 09-05-2001 [facility] Start: 09-05-2001 HEPATITIS C SCREENING HEPATITIS C [facility] Start: 09-05-2001 Hepatitis C screening Hepatitis C [facility] Start: 09-05-2001 HIV SCREENING HIV SCREENING [facility] Start: 09-05-2001 HIV screening HIV Screening [facility] Start: 1995 Adult depression screening assessment DEPRESSION SCREENING [facility] Start: 09-05-1989 PNEUMOCOCCAL (1 - PCV) PNEUMOCOCCAL (1 - PCV) [facility] Start: 09-05-1989 Pneumococcal vaccination Pneumococcal Vaccine (1 of 2 - PCV) [facility] Start: 1983 HEPATITIS B (1 of 3 - 3-dose series) HEPATITIS B (1 of 3 - 3-dose series) [facility] Cytology report of Cervical or vaginal smear or scraping Cyto stain.thin prep [facility] MG Breast - bilatera l Screening [facility] Path report.final Dx Spec [facility] c [facility] NEGATED: Highlighted row has been ruled out! Planned Goals not documented [facility] Work Phone: Immunizations Immunization Date Immunization Notes Care Provider Fa cility 01-25-2023 influenza virus vacc ine, unspecified formulation Annie Peraza OD Work Phone: [facility] 01-22-2021 influenza, injectabl e, quadrivalent, contains preservative No Monreal MD Work Phone: [facility] 01-05-2019 influenza, injectabl e, quadrivalent, contains preservative; Translations: [Flulaval Quadrivalent Intramuscular Suspension] Nuria Dickinson [facility] Work Phone: Comment on above: Series: Payers Date Payer Category Payer Self-pay 2023 [employer] Blue [facility] BLUE ACCE PPO [id number] 2023 Unknown [id number] 2016 Unknown MMO MMO [employer] [id number] 2016-Present [phone] [address] [place] [address] PPO [id number] 2008 Unknown 1983 Unknown [id number] 1983 Unknown [id number] 1983 Unknown [id number] 159 Unknown [id number] Unknown [id number] Unknown [id number] Unknown [id number] Unknown [id number] 462 Unknown [id number] 462 Unknown [id number] Unknown [id number] 462 Social History Date Type Detail Facility Start: 04-01-2022 End: 10-19-2023 Never a smoker Never a smoker [facility] Work Phone: Start: 04-28-2016 End: 06-08-2024 Tobacco smoking status NHIS Never smoked tobacco [facility] Start: 04-28-2016 Tobacco use and exposure Smokeless tobacco non-user [facility] Start: 02-10-2021 End: 10-24-2024 Alcohol intake Current non-drinker of alcohol (finding) [facility] Start: 1985 Sex Assigned At Female C [facility] Start: 01-11-2022 End: 02-18-2022 Exposure to SARS-CoV-2 (event) Not sure [facility] Start: 04-01-2022 End: 10-19-2023 Tobacco use panel [facility] National Score (1-100), lower number is lower risk 62 [facility] Start: 11-29-2019 Gender identity Identifies as female gender (finding) [facility] Start: 11-29-2019 Sexual orientation Heterosexual (fin ding) [facility] Start: 06-08-2024 End: 06-30-2024 Sex Female (finding) [facility] NEGATED: Highlighted row - - [facility] Work Phone: Functional Status Date Assessment Result Facility NEGATED: Highlighted row Functional performance Functional status health issues are not documented Disease [facility] Work Phone: Mental Status Date Assessment Result Facility NEGATED: Highlighted row Cognitive function [Interpretation] Cognitive status health issues are not documented Disease [facility] Work Phone: Clinical Notes 04-28-2016 to 10-24-2024 Annie Peraza, OD - 10/24/2024 1:41 PM EDT Note Date & Type Note Facility 10-24-2024 Note HNO ID: [id number] Author: ANNIE PERAZA OD Service: ? Author Type: FITNESS LEADER Type: Progress Notes Filed: 10/24/2024 13:45 Note [...] Peraza, OD October 24, 2024 1:41 PM [facility] 10-24-2024 History of Present illness Narrative 1. [...] Peraza, OD October 24, 2024 1:41 PM documented in this encounter [facility] 06-08-2024 Note [facility] Pap Smear Specimen Adequacy June 09, 2024 12:59am Comment . Satisfactory for evaluation. No endocervical component is identified. Comment on above: Satisfactory for kristine luation. No endocervical component is identified. 06-08-2024 Note [facility] Pap Smear QC Review June 09, 2024 12:59am Comment . Jessica Calixto, Supervisory Branch Sales And Service Representative (ASCP) Comment on above: Ansley Ruvalcaba Branch Sales And Service Representative (ASCP) 06-08-2024 Note [facility] Pap Smear Specimen Adequacy June 09, 2024 12:59am Comment . Satisfactory for evaluation. No endocervical component is identified. Comment on above: Satisfactory for kristine luation. No endocervical component is identified. 06-08-2024 Note [facility] Pap Smear QC Review June 09, 2024 12:59am Comment . Jessica Calixto Supervisory Branch Sales And Service Representative (ASCP) Comment on above: Ansley Ruvalcaba Branch Sales And Service Representative (ASCP) 06-08-2024 Note [facility] Pap Smear Specimen Adequacy June 09, 2024 12:59am Comment . Satisfactory for evaluation. No endocervical component is identified. Comment on above: Satisfactory for kristine luation. No endocervical component is identified. 06-08-2024 Note [facility] Pap Smear QC Review June 09, 2024 12:59am Comment . Jessica Calixto Supervisory Branch Sales And Service Representative (ASCP) Comment on above: Ansley Ruvalcaba Branch Sales And Service Representative ([facility]) 06-08-2024 Note [facility] Pap Smear QC Review June 09, 2024 12:59am June 15, 2024 12:08pm Comment . Jessica Calixto, Supervisory Branch Sales And Service Representative ([facility]) Comment on above: Ansley Ruvalcaba Branch Sales And Service Representative ([facility]) 06-08-2024 Evaluation note Diagnosis Onset Date Resolution Encounter for routine gynecological examination noneactive June 08, 2024 1:37pm [facility] Work Phone: 1(307) 252-587902-24-2025 Radiology Diagnostic study note [facility] Imaging Services [address] [place] [address] Chest PA and Lateral MR#: [id number] Acct: [id number] Name: OLIVIA LEA Rep #: [id number] : 1985 F 38 From: Talia Carson MD PCP: Maritza Hood DO Status: REG CLI Study:Chest PA and Lateral Date of Exam: 05/29/24 Exam# [id number] Ordering Dr: Dg Nguyen MD EXAM: XR Chest, 2 Views CLINICAL INDICATION: TECHNIQUE: Frontal and lateral views of the chest. COMPARISON: No relevant prior studies available. FINDINGS: LUNGS AND PLEURAL SPACES: Unremarkable. No consolidation. No pneumothorax. HEART: Unremarkable. No cardiomegaly. MEDIASTINUM: Unremarkable. Normal mediastinal contour. BONES/JOINTS: Unremarkable. No acute fracture. RAD/Chest PA and Lateral IMPRESSION: No acute cardiopulmonary process. Reading [facility] CC: Dr. Dg Nguyen MD; Maritza Hood DO ~ Wrap Turner: Signed [facility]07-16-2024 History of Present illness Narrative* Annie Peraza, [...] +1.25-+1.50 Follow-up as needed or yearly Annie Peraza, MACARIO October 19, 2023 2:37 PM [facility] Instructions* Patient Instructions* Annie Peraza, OD - 10/19/2023 1:59 PM EDT Use Lumify daily for redness relief (can purchase [id number]) Use Systane Complete or Refresh Relieva as needed Use +1.25-+1.50 [id number] reading glasses for prolonged reading documented in [facility] encounterTr[facility]02-09-2024 Instructions* Patient Instructions* Bessy Raman APRN.CNP, DNP [...] sooner if symptoms worsen documented in this encounterTr[facility] System02-09-2024 History of Present illness Narrative* Bessy Raman [...] Bessy Raman APRN.JAREK DENNEY documented in this encounterTr[facility] System12-28-2022 Instructions* Patient Instructions* Frank Li MD - 04/01/2022 11:00 AM EST Continue: Refresh Optive Advanced solution instill 1 drop 4 times daily Both Eyes. Warm compresses at bedtime Both Eyes. Lid scrubs at bedtime Both Eyes. Estela mask If you have any questions please contact our office at [phone]. After office hours or on the weekend, please call Dr. Li on his cell phone at [phone]. documented in this encounterTr[facility] System12-28-2022 History of Present illness Narrative* Frank Li [...] diagnosis, and treatment options. documented in this encounterTr[facility] System11-16-2022 Instructions* Patient Instructions* Frank Li MD - 02/18/2022 4:42 PM EST Continue: Refresh Optive Advanced solution instill 1 drop 4 times daily Both Eyes. Eysuvis solution instill 1 drop daily Both Eyes for 1 week then discontinue. Warm compresses at bedtime Both Eyes. Lid scrubs at bedtime Both Eyes. If you have any questions please contact our office at [phone]. After office hours or on the weekend, please call Dr. Li on his cell phone at [phone]. documented in this encounterTrinity [facility] System11-16-2022 History of Present illness Narrative* Frank Li [...] diagnosis, and treatment options. documented in this encounterTrinity [facility] System10-19-2022 Instructions* Patient Instructions* Frank Li MD - 01/21/2022 4:24 PM EDT Continue: Refresh Optive Advanced solution instill 1 drop 4 times daily Both Eyes. Eysuvis solution instill 1 drop 2 times daily Both Eyes. Warm compresses at bedtime Both Eyes. Lid scrubs at bedtime Both Eyes. If you have any questions please contact our office at [phone]. After office hours or on the weekend, please call Dr. Li on his cell phone at [phone]. documented in this encounterTrinity Health System10-19-2022 History of Present illness Narrative* Frank Li [...] options. Frank Li MD documented in this encounterTrinity Health System10-05-2022 Instructions* Patient Instructions* Frank Li MD - 01/07/2022 3:45 PM EDT Start: Eysuvis solution instill 1 drop 4 times daily Both Eyes. Warm compresses at bedtime Both Eyes. Lid scrubs at bedtime Both Eyes. Continue: Refresh Optive Advanced solution instill 1 drop 4 times daily Both Eyes. If you have any questions please contact our office at [phone]. After office hours or on the weekend, please call Dr. Li on his cell phone at [phone].' documented in this encounterTrinity Health System10-05-2022 History of Present illness Narrative* Frank Li [...] diagnosis, and treatment options. documented in this encounterTrinity Health System07-19-2018 History of Past illness Narrative* Problem Noted Date Resolved Date Hordeolum internum of left upper eyelid 10/22/19 18 01/21/2022 Myopia of both eyes 04/28/2016 05/21/2016 documented as of this encounter (statuses as of 01/21/2022) [facility] Narrative* Problem Noted Date Resolved Date Hordeolum internum of left upper eyelid 10/22/19 18 01/21/2022 Myopia of both eyes 04/28/2016 05/21/2016 documented as of this encounter (statuses as of 02/18/2022) [facility] Narrative* Problem Noted Date Resolved Date Hordeolum internum of left upper eyelid 10/22/19 18 01/21/2022 Myopia of both eyes 04/28/2016 05/21/2016 documented as of this encounter (statuses as of 04/07/2022) [facility] Narrative* Problem Noted Date Diagnosed Date Resolved Date Hordeolum internum of left upper eyelid 10/21/2017 01/21/2022 Myopia of both eyes 04/28/2016 05/21/19 17 documented as of this encounter (statuses as of 05/14/2023) [facility] Narrative* Problem Noted Date Resolved Date Myopia of both eyes 04/28/2016 05/21/2016 documented as of this encounter (statuses as of 08/25/2021) [facility] of [facility] Narrative* Problem Noted Date Resolved Date Myopia of both eyes 04/28/2016 05/21/2016 documented as of this encounter (statuses as of 01/07/2022) [facility]* Diagnosis Chronic cough Cough documented in this encounter [facility]* Diagnosis Dry eye syndrome of both eyes- Primary Status post LASIK surgery of both eyes Anxiety disorder, unspecified type Asthma, unspecified asthma severity, unspecified whether complicated, unspecified whether persistent [facility] encounter [facility]* Diagnosis Punctate keratitis, bilateral- Primary Meibomian gland dysfunction (MGD) of upper and lower lids of both eyes Status post LASIK surgery of both eyes [facility] this encounter [facility]* Diagnosis Meibomian gland dysfunction (MGD) of upper and lower lids of both eyes- Primary Punctate keratitis of both eyes Punctate keratitis Status post LASIK surgery of both eyes [facility]* Diagnosis Meibomian gland dysfunction (MGD) of upper and lower lids of both eyes- Primary Punctate keratitis of both eyes Punctate keratitis Status post LASIK surgery of both eyes documented in this encounter [facility] SystemEvaluation noteNo assessment information availableWGenesis Hospital Work Phone: Evaluation note* Diagnosis Herpes zoster without complication- Primary Herpes zoster without mention of complication [facility]* Diagnosis Meibomian gland dysfunction (MGD) of upper and lower lids of both eyes- Primary Dry eye syndrome of both eyes Status post LASIK surgery of both eyes [facility]* Diagnosis Meibomian gland dysfunction (MGD) of upper and lower lids of both eyes- Primary Dry eye syndrome of both eyes Status post LASIK surgery of both eyes documented [facility] this encounter [facility] illness Narrative* EP. Here for [...] go to neuropsychologist, Dr. Gorge Aguilar in [place]. * -Noticed since July she has not [...] with her depression being off of it. [facility] Work Phone: Reason for referral (narrative)No reason for referral information availableWGenesis Hospital Work Phone: Summary Purpose Family History [...] LAT XRAY May 29, 2024 11:40am Annual (BLADE GRINDER) June 08, 2024 1:37 pm Reason for Visit Admit Date Encounter for routine gynecological exam ination June 08, 2024 1:37pm Chief Complaint Admit Date CHECT PA & LAT XRAY May 29, 2024 11:40am Annual (BLADE GRINDER) June 08, 2024 1:37 pm NO DRAW FEE June 21, 2024 4:2 6pm Chief Complaint Admit Date CHECT PA & LAT XRAY May 29, 2024 11:40am Annual (BLADE GRINDER) June 08, 2024 1:37 pm NO DRAW FEE June 21, 2024 4:2 6pm Breast Cancer Screening September 04, 2024 1 2:24pm Chief Complaint Admit Date Breast Cancer Screening September 04, 2024 1 2:24pm Additional Source Comments INFORMATION SOURCE (unrecogn ized section and content) DATE CREATED AUTHOR 03/14/2018 [facility] DATE CREATED AUTHOR AUTHOR'S ORGANIZ ATION 12/15/2020 [facility] DATE CREATED AUTHOR AUTHOR'S ORGANIZ ATION 08/26/2021 [employer] DATE CREATED AUTHOR AUTHOR'S ORGANIZ ATION 11/15/2021 [facility] DATE CREATED AUTHOR AUTHOR'S ORGANIZ ATION 10/26/2024 [facility] DATE CREATED AUTHOR AUTHOR'S ORGANIZ ATION 12/03/2024 [facility] Source Comments (unrecognize d section and content) In the event this informatio n is protected by the Federal Confidentiality of Alcohol and Drug Abuse Patient Records regulations: The Federal rules restrict any use of the information to criminally investigate or prosecute any alcohol or drug abuse patient.[facility] SystemIn the event this information is protected by the Federal Confidentiality of Alcohol and Drug Abuse Patient Records regulations: The Federal rules restrict any use of the information to criminally investigate or prosecute any alcohol or drug abuse patient.[facility] SystemIn the event this information is protected by the Federal Confidentiality of Alcohol and Drug Abuse Patient Records regulations: The Federal rules restrict any use of the information to criminally investigate or prosecute any alcohol or drug abuse patient.[facility] SystemIn the event this information is protected by the Federal Confidentiality of Alcohol and Drug Abuse Patient Records regulations: The Federal rules restrict any use of the information to criminally investigate or prosecute any alcohol or drug abuse patient.[facility] SystemIn the event this information is protected by the Federal Confidentiality of Alcohol and Drug Abuse Patient Records regulations: The Federal rules restrict any use of the information to criminally investigate or prosecute any alcohol or drug abuse patient.[facility] SystemIn the event this information is protected by the Federal Confidentiality of Alcohol and Drug Abuse Patient Records regulations: The Federal rules restrict any use of the information to criminally investigate or prosecute any alcohol or drug abuse patient.[facility] SystemIn the event this information is protected by the Federal Confidentiality of Alcohol and Drug Abuse Patient Records regulations: The Federal rules restrict any use of the information to criminally investigate or prosecute any alcohol or drug abuse patient.[facility] SystemIn the event this information is protected by the Federal Confidentiality of Alcohol and Drug Abuse Patient Records regulations: The Federal rules restrict any use of the information to criminally investigate or prosecute any alcohol or drug abuse patient.[facility] Reason for Visit (unrecogniz ed section and content) Reason Comments Refill Request Reason Comments Dry Eye(s) Both Eyes Reason Comments Punctate Keratits Both Eyes Reason Comments Rash Reason Comments Yearly Exam Care Teams (unrecognized sec tion and content) Land Title Examiner Relationship Specialty Start Date End Date Nuria Dickinson PCP - General Family Practice 04/28/16 Land Title Examiner Relationship Specialty Start Date End Date Nuria Dickinson PCP - General Family Medicine 04/28/16 Land Title Examiner Relationship Specialty Start Date End Date Tino Hood, DO [address] [place] [address] PCP - General Family Medicine 01/21/22 Land Title Examiner Relationship Specialty Start Date End Date Tino Hood, DO [address] [place] [address] PCP - General Family Medicine 01/21/22 Land Title Examiner Relationship Specialty Start Date End Date Tino Hood, DO [address] [place] [address] PCP - General Family Medicine 01/21/22 Team Status: Active Member Role Status Dates Dr. Mary Tellez MD Family Provider Active Tino Ileana DO Sana Primary Care Provider Active Team Status: Inactive Member Role Status Dates Tino Tejeda Sana DO Primary Care Provi haley, Attending Provider, Referring Provider Active Land Title Examiner Relationship Specialty Start Date End Date Tino Hood, DO [address] [place] [address] PCP - General Family Medicine 01/21/22 Land Title Examiner Relationship Specialty Start Date End Date Tino Hood, DO [address] [facility] [address] [place] [address] PCP - General Family Medicine 01/21/22 Team Status: Active Member Role Status Dates Dr. Mary Tellez MD Family Provider Active Maritza Hood [facility], DO Primary Care Provider Active Team Status: Inactive Member Role Status Dates Maritza Hood [facility], DO Primary Care Provider Active Start: May 29, 2024 End: May 29, 2024 Dr. Dg Nguyen MD Attending Provider Active Start: May 29, 2024 End: May 29, 2024 Dr. Dg Nguyen MD Referring Provider Active Start: May 29, 2024 End: May 29, 2024 Team Status: Inactive Member Role Status Dates Maritza Sana VSC, DO Primary Care Provider Active Start: June 08, 2024 End: June 08, 2024 Maritza Sana VSC, DO Referring Provider Active Start: June 08, 2024 End: June 08, 2024 Isabelle Frias CNM Attending Provider Active S tart: June 08, 2024 End: June 08, 2024 Team Status: Active Member Role Status Dates Maritzacarmen Hood VSC, DO Primary Care Provider Active Start: June 08, 2024 Isabelle Frias CNM Attending Provider Active S tart: June 08, 2024 Isabelle Frias CNM Referring Provider Active S tart: June 08, 2024 Team Status: Inactive Member Role Status Dates Maritzacarmen Hood VSC, DO Primary Care Provider Active Start: June 08, 2024 End: June 08, 2024 Isabelle rFias CNM Attending Provider Active S tart: June 08, 2024 End: June 08, 2024 Isabelle Frias CNM Referring Provider Active S tart: June 08, 2024 End: June 08, 2024 Team Status: Active Member Role Status Dates Maritza Sana VSC, DO Primary Care Provider Active Start: June 20, 2024 Dr. Dg Nguyen MD Attending Provider Active Start: June 20, 2024 Dr. Dg Nguyen MD Referring Provider Active Start: June 20, 2024 Team Status: Active Member Role Status Dates Maritzacarmen Hood VSC, DO Primary Care Provider Active Team Status: Inactive Member Role Status Dates Maritzacarmen Hood VSC, DO Primary Care Provider Active Start: June 20, 2024 End: June 20, 2024 Dr. Dg Nguyen MD Attending Provider Active Start: June 20, 2024 End: June 20, 2024 Dr. Dg Nguyen MD Referring Provider Active Start: June 20, 2024 End: June 20, 2024 Team Status: Active Member Role Status Dates Maritza Sana VSC, DO Primary Care Provider Active Start: June 21, 2024 Dr. Dg Nguyen MD Attending Provider Active Start: June 21, 2024 Dr. Dg Nguyen MD Referring Provider Active Start: June 21, 2024 Team Status: Inactive Member Role Status Dates Maritzacarmen Hood VSC, DO Primary Care Provider Active Start: June 21, 2024 End: June 21, 2024 Dr. Dg Nguyen MD Attending Provider Active Start: June 21, 2024 End: June 21, 2024 Dr. 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 Relationship Specialty Start Date End Date Tino Hood SallyDO PCP - General Family Medicine 01/21/22 Team Status: Active Member Role/Relationship Status Dates Maritza MARTÍNEZ, DO Primary Care Provider Active Team Status: Inactive Member Role/Relationship Status Dates Maritza MARTÍNEZ, DO Primary Care Provider Active Start: September 04, 2024 End: September 04, 2024 Isabelle Frias CNM Attending Provider Active S tart: September 04, 2024 End: September 04, 2024 Isabelle Frias CNM Referring Provider Active S tart: September 04, 2024 End: September 04, 2024 Team Status: Inactive Member Role/Relationship Status Dates Maritza MARTÍNEZ, DO Primary Care Provider Active Start: November 25, 2024 End: November 25, 2024 Dr. Dg Nguyen MD Attending Provider Active Start: November 25, 2024 End: November 25, 2024 Dr. Dg Nguyen MD Referring Provider Active Start: November 25, 2024 End: November 25, 2024 Goals (unrecognized section and content) Goals may [...] BE BASED ON THE PRIMARY CLINICAL RECORDS. [email or web address]. provides no warranty or guarantee of the accuracy or completeness of information in this document.
[2025-03-24 08:43] LABS: CORTISOL AM 0.93 ug/dL (6.02-18.40)
== END | disposition home or self-care (01) ==
LOC: LAB 08:04
PROVIDERS: PCP Family Medicine; Referring Provider Family Medicine; Visit Provider Family Medicine
DX: R89.1 Abnormal level of hormones in specimens from other organs, systems and tissues (principal)
CPT/HCPCS: 36415; 82533